=== PATIENT | female | born 1970 | race Caucasian/White ===

== ENCOUNTER 2021-03-30 15:01 | Emergency (ER) | payer MEDICARE, MEDICAID, SELFPAY ==
--- NOTE | 2021-03-30 14:59 | ECG_ITS ---
APPROVED REPORT Exam: Resting ECG HR:61 bpm ECG Measurements Heart Rate 61 AXES WY 186 P 57 QRSd 78 QRS 71 QT 430 T 80 QTc 432 Conclusion Sinus rhythm with frequent premature ventricular complexes in a pattern of bigeminy Low voltage QRS Cannot rule out Anterior infarct, age undetermined Abnormal ECG Electronically signed by : Reinier Rhodes MD 03/31/2021 21:21:21
[2021-03-30 15:02] VITALS: BP 127/67; PULSE 60; RESP 22; TEMP 36.5; O2SAT 97; BMI 39.0
--- NOTE | 2021-03-30 15:12 | CT_ITS ---
PROCEDURE INFORMATION: Exam: CT Chest With Contrast; Diagnostic Exam date and time: 03/30/2021 3:12 PM Age: 50 years old Clinical indication: Left-sided; Prior surgery; Surgery date: 1-6 months; Surgery type: Defibrillator. . . 02/20/21; Patient HX: Left chest, neck, back pain, n; /v; Additional info: Pacemaker pain TECHNIQUE: Imaging protocol: Diagnostic computed tomography of the chest with contrast. Radiation optimization: All CT scans at this facility use at least one of these dose optimization techniques: automated exposure control; mA and/or kV adjustment per patient size (includes targeted exams where dose is matched to clinical indication); or iterative reconstruction. Contrast material: ISOVUE; Contrast volume: 75 ml; Contrast route: IV; COMPARISON: No relevant prior studies available. FINDINGS: Tubes, catheters and devices: Single lead cardiac pulse generator in place. Lungs: Unremarkable. No consolidation. No masses. Pleural spaces: Unremarkable. No pneumothorax. No pleural effusion. Heart: Unremarkable. No cardiomegaly. No pericardial effusion. Aorta: Unremarkable. No aortic aneurysm. Lymph nodes: Unremarkable. No enlarged lymph nodes. Bones/joints: Unremarkable. No acute fracture. Soft tissues: Unremarkable. IMPRESSION: No acute findings.
--- NOTE | 2021-03-30 15:18 | HMH.EDCP ---
ED Disposition Clinical Impression: Chest wall pain Disposition: Home, Self-Care Condition on Discharge: Good Instructions: DI for Atypical Chest Pain Referrals: Provider,Referral, [Referring] - Tyler Goodwin MD [Staff Physician] - - Critical Care Critical Care Time: No Attestation: On 03/30/21, the high probability of a clinically significant, sudden or life threatening deterioration of the following system(s) required my full and direct attention, intervention and personal management. The time I documented below is in addition to time spent performing reported procedures but includes the following listed in this critical care notation. Medical Decision Making - Medical Records Medical records reviewed: Yes: I reviewed the patient's medical records. - Raji Inquiry Pt receiving controlled substance: Yes Raji was queried for this patient: No Risks and benefits of using a controlled substance: were discussed with pt by me Vital Signs: 03/30/21 15:02 Temperature 97.7 F Temperature Source Oral Pulse Rate [Radial] 60 Respiratory Rate 22 Blood Pressure [Right Arm] 127/67 Blood Pressure Mean [Right Arm] 87 Blood Pressure Position [Right Arm] Sitting 02 Sat by Pulse Oximetry 97 Oxygen Delivery Method Room Air - Lab Data Lab Results 03/30/21 15:30: WBC 7.9, RBC 4.58, Hgb 14.0, Hct 41.6, MCV 90.9, MCH 30.7, MCHC 33.7, RDW 13.8, Plt Count 224, MPV 8.4, Neut % (Auto) 47.1, Lymph % (Auto) 42.9, [place] % (Auto) 4.6, Eos % (Auto) 4.1, Baso % (Auto) 1.2, Neut # (Auto) 3.7, Lymph # (Auto) 3.4, [place] # (Auto) 0.4, Eos # (Auto) 0.3, Baso # (Auto) 0.1 03/30/21 15:30: Sodium 139, Potassium 4.1, Chloride 106, Carbon Dioxide 25, Anion Gap 12.1, BUN 12, Creatinine 0.70, Estimated Creat Clear 195, Estimated GFR 89, Est GFR ( Amer) 108, Glucose 96, Calcium 9.4, Total Bilirubin 0.7, AST 26, ALT 27, Alkaline Phosphatase 78, Troponin I < 0.01, NT-Pro-B Natriuret Pep 489 H, Total Protein 6.8, Albumin 4.2, Globulin 2.6, Albumin/Globulin Ratio 1.6 Result diagrams: 03/30/21 15:30 03/30/21 15:30 Orders (Tests/Meds): ED MEDICATIONS Generic Name Dose Route Start Last Admin Trade Name Freq PRN Reason Stop Dose Admin Sodium Chloride 1,000 mls @ 999 mls/hr 03/30/21 15:15 03/30/21 15:20 Sod Chlor 0.9% 1000ml Bag IV 03/30/21 16:15 999 mls/hr .Q1H1M ERVIN Administration Discontinued Medications Generic Name Dose Route Start Last Admin Trade Name Freq PRN Reason Stop Dose Admin Iopamidol 75 ml 03/30/21 16:19 03/30/21 16:20 Iopamidol-370 (76%);100ml Bottle IV 03/30/21 16:20 75 ml ONCE ONE Administration Morphine Sulfate 4 mg 03/30/21 15:11 03/30/21 15:19 Morphine 4mg/Ml Syringe IV 03/30/21 15:12 4 mg ONCE ONE Administration Promethazine HCl 25 mg 03/30/21 15:12 03/30/21 15:18 Promethazine Hcl 25mg/Ml 1ml Vial IV 03/30/21 15:13 25 mg ONCE ONE Administration Sodium Chloride 25 ml 03/30/21 15:12 03/30/21 15:18 Sodium Chloride 0.9% 25ml Bag IV 03/30/21 15:13 25 ml ONCE ONE Administration Sodium Chloride 10 ml 03/30/21 16:19 03/30/21 16:20 Sodium Chloride 0.9% 10ml Syr (Rad Only) IV 03/30/21 16:20 10 ml ONCE ONE Administration ORDERS Category Date Time Status Troponin I Q3H Lab 03/30/21 18:15 Ordered Troponin I Q3H Lab 03/30/21 21:15 Ordered - CT Data CT Scan: Chest Time Received: 18:[address] Reviewed: Yes: I have reviewed the patient's CT results, I have viewed the radiologist's interpretation Preliminary Findings: Normal/NAD - ECG Data Tracing #1 I reviewed this ECG and interpreted as documented below: Normal ventricular rate is 61 bpm. Ventricular pacemaker. Nonspecific changes. ECG initial impression date: 03/30/21 ECG initial impression time: 14:59 - Reevaluation(s) Time: 18:00 Reevaluation #1: On reevaluation, patient is feeling much better. She remains hemodynamically stable. Afebrile. Nontoxic. CT of the
[2021-03-30 15:48] LABS: Basophils # 0.1 K/mm3 (0-0.2); Basophils % 1.2 % (0.1-2.0); Chloride 106 mmol/L (98-107); Eosinophils # 0.3 K/mm3 (0.0-0.4); Eosinophils % 4.1 % (0.1-12.0); Hematocrit 41.6 % (37.0-47.0); Lymphocytes # 3.4 K/mm3 (0.7-4.5); Lymphocytes % 42.9 % (10-50); Mean Corpuscular HGB Conc 33.7 g/dL (31.8-35.4); Mean Corpuscular Hemoglobin 30.7 pg (27.0-31.2); Mean Corpuscular Volume 90.9 fl (81-99); Mean Platelet Volume 8.4 fl (7.4-10.4); Monocytes # 0.4 K/mm3 (0.1-1.0); Monocytes % 4.6 % (1.7-9.3); Neutrophils # 3.7 K/mm3 (1.8-7.8); Neutrophils % 47.1 % (37.0-80.0); Platelet Count 224 K/mm3 (142-424); Potassium 4.1 mmoL/L (3.5-5.1); Red Blood Count 4.58 M/mm3 (4.20-5.40); Red Cell Distribution Width 13.8 % (11.5-17.5); Sodium 139 mmol/L (136-145); White Blood Count 7.9 K/mm3 (4.8-10.8)
[2021-03-30 15:51] LABS: Alanine Aminotransferase 27 U/L (12-78); Albumin Level 4.2 g/dl (3.5-5.0); Albumin/Globulin Ratio 1.6 (1.1-1.8); Alkaline Phosphatase 78 U/L (38-126); Anion Gap 12.1 mEq/L (5-15); Aspartate Amino Transferase 26 U/L (14-36); Bilirubin,Total 0.7 mg/dl (0.2-1.3); Blood Urea Nitrogen 12 mg/dl (7-17); Carbon Dioxide 25 mmol/L (22.0-30.0); Creatinine Clearance Estimated 195 mL/min (50-200); Estimated Glomerular Filt Rate 89 ml/min (>60); GFR (African American) 108 ML/MIN (>60); Globulin 2.6 g/dL (1.3-3.2); Total Protein,Serum 6.8 g/dl (6.3-8.2)
[2021-03-30 15:52] LABS: Calcium 9.4 mg/dl (8.4-10.2); Glucose 96 mg/dl (74-100)
[2021-03-30 16:01] LABS: NT Pro Brain Natriuretic Pep. 489 pg/mL (0-125)
[2021-03-30 16:06] LABS: Troponin I < 0.01 ng/ml (0.00-0.034)
[2021-03-30 18:18] VITALS: BP 125/47; PULSE 78; RESP 18; TEMP 36.6; O2SAT 98
== END 2021-03-30 18:20 | disposition home or self-care (01) ==
PROVIDERS: Emergency Provider Emergency Medicine; PCP Emergency Medicine
DX: R07.9 Chest pain, unspecified (principal); Z95.810 Presence of automatic (implantable) cardiac defibrillator; I50.9 Heart failure, unspecified; J44.9 Chronic obstructive pulmonary disease, unspecified
CPT/HCPCS: 71260; 80053; 83880; 84484; 85025; 93005; 96374; 99283; Q9967

== ENCOUNTER 2021-04-04 17:56 | Emergency (ER) | payer MEDICARE, MEDICAID, SELFPAY ==
[2021-04-04 17:58] VITALS: BP 124/75; PULSE 72; RESP 18; TEMP 36.6; O2SAT 96; BMI 39.0
--- NOTE | 2021-04-04 18:12 | XR_ITS ---
PROCEDURE INFORMATION: Exam: XR Chest Exam date and time: 04/04/2021 6:12 PM Age: 50 years old Clinical indication: Cough; Prior surgery; Surgery date: 1-6 months; Surgery type: Difibrillator TECHNIQUE: Imaging protocol: XR of the chest. Views: 1 view. Portable AP upright exam 6:28 p.m. COMPARISON: CT CHEST W CON 03/30/2021 4:06 PM FINDINGS: Lungs: Slight hypoventilation. No acute findings. No consolidation. Pleural spaces: Unremarkable. No significant pleural effusion. No pneumothorax. Heart/Mediastinum: Cardiac size appears borderline enlarged, but accentuated by portable AP technique. A single lead left subclavian cardiac defibrillator device again noted. Bones/joints: Minimal spinal degenerative changes. Other findings: Overlying youth nutritional monitor electrodes. IMPRESSION: 1. No acute findings. 2. Additional nonemergency and chronic findings as above.
[2021-04-04 18:30] LABS: Basophils # 0.1 K/mm3 (0-0.2); Basophils % 1.1 % (0.1-2.0); Eosinophils # 0.4 K/mm3 (0.0-0.4); Eosinophils % 4.4 % (0.1-12.0); Hematocrit 43.1 % (37.0-47.0); Hemoglobin 14.7 g/dL (12.2-16.2); Lymphocytes # 2.7 K/mm3 (0.7-4.5); Lymphocytes % 32.6 % (10-50); Mean Corpuscular HGB Conc 34.2 g/dL (31.8-35.4); Mean Corpuscular Hemoglobin 30.9 pg (27.0-31.2); Mean Corpuscular Volume 90.4 fl (81-99); Mean Platelet Volume 8.9 fl (7.4-10.4); Monocytes # 0.3 K/mm3 (0.1-1.0); Monocytes % 3.9 % (1.7-9.3); Neutrophils # 4.7 K/mm3 (1.8-7.8); Neutrophils % 57.9 % (37.0-80.0); Platelet Count 260 K/mm3 (142-424); Red Blood Count 4.77 M/mm3 (4.20-5.40); Red Cell Distribution Width 13.8 % (11.5-17.5); White Blood Count 8.1 K/mm3 (4.8-10.8)
[2021-04-04 18:37] LABS: Anion Gap 11.8 mEq/L (5-15); Blood Urea Nitrogen 13 mg/dl (7-17); Calcium 9.5 mg/dl (8.4-10.2); Carbon Dioxide 24 mmol/L (22.0-30.0); Chloride 109 mmol/L (98-107); Creatinine Clearance Estimated 171 mL/min (50-200); Estimated Glomerular Filt Rate 76 ml/min (>60); GFR (African American) 92 ML/MIN (>60); Glucose 106 mg/dl (74-100); Potassium 3.8 mmoL/L (3.5-5.1); Sodium 141 mmol/L (136-145)
--- NOTE | 2021-04-04 18:43 | HMH.EDGENADL ---
ED Disposition Clinical Impression: Chest wall pain Disposition: Home, Self-Care Condition on Discharge: Good Instructions: DI for Chest Pain Prescriptions: diazePAM [Valium 2mg tablet] 2 mg PO BID #10 tab Transmission Status: Received by [facility] #[id number] Referrals: Khai Stoddard MD [Primary Care Provider] - Tyler Goodwin MD [Staff Physician] - - Critical Care Critical Care Time: No Attestation: On 04/04/21, the high probability of a clinically significant, sudden or life threatening deterioration of the following system(s) required my full and direct attention, intervention and personal management. The time I documented below is in addition to time spent performing reported procedures but includes the following listed in this critical care notation. Medical Decision Making - Medical Records Medical records reviewed: Yes: I reviewed the patient's medical records. - Raji Inquiry Pt receiving controlled substance: Yes Raji was queried for this patient: No Reason not queried -: Raji login issues Risks and benefits of using a controlled substance: were discussed with pt by me Vital Signs: 04/04/21 17:58 Temperature 97.9 F Temperature Source Oral Pulse Rate [Right Radial] 72 Respiratory Rate 18 Blood Pressure [Right Arm] 124/75 Blood Pressure Mean [Right Arm] 91 Blood Pressure Source [Right Arm] Automatic Cuff Blood Pressure Position [Right Arm] Sitting 02 Sat by Pulse Oximetry 96 Oxygen Delivery Method Room Air - Lab Data Lab Results 04/04/21 18:20: WBC 8.1, RBC 4.77, Hgb 14.7, Hct 43.1, MCV 90.4, MCH 30.9, MCHC 34.2, RDW 13.8, Plt Count 260, MPV 8.9, Neut % (Auto) 57.9, Lymph % (Auto) 32.6, [place] % (Auto) 3.9, Eos % (Auto) 4.4, Baso % (Auto) 1.1, Neut # (Auto) 4.7, Lymph # (Auto) 2.7, [place] # (Auto) 0.3, Eos # (Auto) 0.4, Baso # (Auto) 0.1 04/04/21 18:20: Sodium 141, Potassium 3.8, Chloride 109 H, Carbon Dioxide 24, Anion Gap 11.8, BUN 13, Creatinine 0.80, Estimated Creat Clear 171, Estimated GFR 76, Est GFR ( Amer) 92, Glucose 106 H, Calcium 9.5, Troponin I < 0.01 Result diagrams: 04/04/21 18:20 04/04/21 18:20 Orders (Tests/Meds): ED MEDICATIONS Discontinued Medications Generic Name Dose Route Start Last Admin Trade Name Augustin PRN Reason Stop Dose Admin Morphine Sulfate 4 mg 04/04/21 18:12 04/04/21 18:34 Morphine 4mg/Ml Syringe IV 04/04/21 18:13 4 mg ONCE ONE Administration Ondansetron HCl 4 mg 04/04/21 18:12 04/04/21 18:34 Ondansetron 4mg/2ml Vial IV 04/04/21 18:13 4 mg ONCE ONE Administration ORDERS Category Date Time Status Troponin I Q3H Lab 04/04/21 21:15 Ordered Troponin I Q3H Lab 04/05/21 00:15 Ordered - Radiology Data #1 Image(s): Chest Image Reviewed: Yes I reviewed the patient's radiology results, Yes I reviewed the patient's radiology image, Yes I have reviewed radiologist's interpretation IMPRESSION: 1. No acute findings. 2. Additional nonemergency and chronic findings as above. - Reevaluation(s) Time: 19:16 Reevaluation #1: On reevaluation, patient's pain is improved. Troponin negative. Chest x-ray unremarkable. Patient needs to follow-up with PCP in 48 hours. She needs to get follow-up with cardiology as she was instructed previously. Given strict return precautions. Verbalized understanding. - ARIADNA Score for Non-Stemi Age of Patient: 40-49 years old Heart Rate: 70-89 bpm Systolic Blood Pressure: 120-139 mmhg Serum Creatinine: <0.40 mg/dl CHF Killip Class: I-No CHF Other Risk Factors: None Non-Stemi Risk Score: 69 Risk Stratification: 1-108 = Low Risk Medical Decision Narrative: 50-year-old female presented to the emergency department with some chest discomfort. Patient appears to have chronic discomfort since she had a pacemaker placed. Hemodynamically she is stable. Low risk for acute coronary syndrome. Work-up initiated. General Adult HPI - General Chief comp
[2021-04-04 18:51] LABS: Troponin I < 0.01 ng/ml (0.00-0.034)
[2021-04-04 19:23] VITALS: BP 118/72; PULSE 69; RESP 16; TEMP 36.6; O2SAT 98
== END 2021-04-04 19:25 | disposition home or self-care (01) ==
PROVIDERS: Emergency Provider Emergency Medicine; PCP Emergency Medicine
DX: R07.89 Other chest pain (principal); J44.9 Chronic obstructive pulmonary disease, unspecified; I50.9 Heart failure, unspecified; F41.9 Anxiety disorder, unspecified; Z88.0 Allergy status to penicillin
CPT/HCPCS: 71045; 80048; 84484; 85025; 96374; 96375; 99283; J2405

== ENCOUNTER → 2021-04-29 14:30 | Outpatient (CLI) | payer MEDICARE, MEDICAID, SELFPAY ==
[2021-04-29 14:55] LABS: Basophils # 0.1 K/mm3 (0-0.2); Basophils % 1.3 % (0.1-2.0); Eosinophils # 0.3 K/mm3 (0.0-0.4); Eosinophils % 3.3 % (0.1-12.0); Hematocrit 46.6 % (37.0-47.0); Hemoglobin 15.5 g/dL (12.2-16.2); Lymphocytes # 3.8 K/mm3 (0.7-4.5); Lymphocytes % 41.7 % (10-50); Mean Corpuscular HGB Conc 33.4 g/dL (31.8-35.4); Mean Corpuscular Hemoglobin 30.6 pg (27.0-31.2); Mean Corpuscular Volume 91.5 fl (81-99); Mean Platelet Volume 9.4 fl (7.4-10.4); Monocytes # 0.4 K/mm3 (0.1-1.0); Monocytes % 4.8 % (1.7-9.3); Neutrophils # 4.4 K/mm3 (1.8-7.8); Platelet Count 275 K/mm3 (142-424); Red Blood Count 5.09 M/mm3 (4.20-5.40); Red Cell Distribution Width 13.6 % (11.5-17.5)
[2021-04-29 15:40] LABS: Alanine Aminotransferase 25 U/L (12-78); Albumin Level 4.6 g/dl (3.5-5.0); Alkaline Phosphatase 81 U/L (38-126); Anion Gap 12.1 mEq/L (5-15); Aspartate Amino Transferase 27 U/L (14-36); Bilirubin,Direct 0.4 mg/dl (0.0-0.4); Bilirubin,Total 0.4 mg/dl (0.2-1.3); Blood Urea Nitrogen 16 mg/dl (7-17); Calcium 10.3 mg/dl (8.4-10.2); Carbon Dioxide 29 mmol/L (22.0-30.0); Chloride 104 mmol/L (98-107); Chol/HDL Ratio 5.1 (1-3.5); Cholesterol 260 mg/dl (140-200); Estimated Glomerular Filt Rate 67 ml/min (>60); GFR (African American) 81 ML/MIN (>60); Glucose 88 mg/dl (74-100); HDL Cholesterol 51 mg/dl (40-60); Potassium 5.1 mmoL/L (3.5-5.1); Sodium 140 mmol/L (136-145); Total Protein,Serum 7.4 g/dl (6.3-8.2); Triglycerides 257 mg/dl (30-150); VLDL Cholesterol 51 mg/dL (0-40)
[2021-04-29 15:51] LABS: Direct LDL Cholesterol 184.88 mg/dL (100-129)
[2021-04-29 15:54] LABS: Free T4 (Free Thyroxine) 1.96 ng/dl (0.78-2.19)
[2021-04-29 16:08] LABS: Thyroid Stimulating Hormone 0.07 uIU/mL (0.465-4.68)
== END ==
PROVIDERS: Visit Provider Physician Assistant
DX: R00.2 Palpitations (principal); R06.00 Dyspnea, unspecified; R07.9 Chest pain, unspecified; R94.31 Abnormal electrocardiogram [ECG] [EKG]; Z95.810 Presence of automatic (implantable) cardiac defibrillator
CPT/HCPCS: 36415; 80048; 80061; 80076; 84439; 84443; 85025

== ENCOUNTER → 2021-05-06 14:23 | Outpatient (CLI) | payer MEDICARE, MEDICAID, SELFPAY ==
[2021-05-06 15:49] LABS: Anion Gap 12.7 mEq/L (5-15); Blood Urea Nitrogen 24 mg/dl (7-17); Calcium 10.5 mg/dl (8.4-10.2); Carbon Dioxide 31 mmol/L (22.0-30.0); Chloride 102 mmol/L (98-107); Estimated Glomerular Filt Rate 59 ml/min (>60); GFR (African American) 71 ML/MIN (>60); Glucose 79 mg/dl (74-100); Potassium 4.7 mmoL/L (3.5-5.1); Sodium 141 mmol/L (136-145)
== END ==
PROVIDERS: Visit Provider Nurse Practitioner Family
DX: R25.2 Cramp and spasm (principal)
CPT/HCPCS: 36415; 80048

== ENCOUNTER 2021-05-07 16:09 | Emergency (ER) | payer MEDICARE, MEDICAID, SELFPAY ==
[2021-05-07 16:10] VITALS: BP 103/61; PULSE 80; RESP 18; TEMP 36.8; O2SAT 98; BMI 39.0
--- NOTE | 2021-05-07 16:12 | XR_ITS ---
PROCEDURE: XR CHEST PORTABLE CLINICAL HISTORY: Shortness of breath COMPARISON: CR CXR CHEST(2 VIEWS-NOT PORTABLE) from 07/12/[address] CHEST W CON from 03/30/2021 CR XR CHEST PORTABLE from 04/04/2021 FINDINGS: The cardiomediastinal silhouette and pulmonary vascularity are within normal limits. A left subclavian placed RV pacemaker is present in good position. Lungs are clear. No acute bony findings. IMPRESSION: No change with no acute finding Dictated by: Donn Tobin MD 05/07/2021 16:38 Donn Tobin MD in [place] 05/07/2021 16:38
[2021-05-07 16:40] LABS: Basophils # 0.1 K/mm3 (0-0.2); Basophils % 1.3 % (0.1-2.0); Eosinophils # 0.2 K/mm3 (0.0-0.4); Eosinophils % 2.1 % (0.1-12.0); Hemoglobin 13.9 g/dL (12.2-16.2); Lymphocytes # 2.3 K/mm3 (0.7-4.5); Lymphocytes % 29.6 % (10-50); Mean Corpuscular Hemoglobin 30.2 pg (27.0-31.2); Mean Corpuscular Volume 88.8 fl (81-99); Mean Platelet Volume 8.9 fl (7.4-10.4); Monocytes # 0.3 K/mm3 (0.1-1.0); Monocytes % 3.8 % (1.7-9.3); Neutrophils % 63.2 % (37.0-80.0); Platelet Count 246 K/mm3 (142-424); Red Blood Count 4.61 M/mm3 (4.20-5.40); Red Cell Distribution Width 13.2 % (11.5-17.5); White Blood Count 7.9 K/mm3 (4.8-10.8)
[2021-05-07 16:51] LABS: Chloride 101 mmol/L (98-107)
[2021-05-07 16:52] LABS: Potassium 4.5 mmoL/L (3.5-5.1); Sodium 137 mmol/L (136-145)
[2021-05-07 16:54] LABS: Alanine Aminotransferase 74 U/L (12-78); Albumin Level 4.3 g/dl (3.5-5.0); Albumin/Globulin Ratio 1.6 (1.1-1.8); Alkaline Phosphatase 227 U/L (38-126); Anion Gap 11.5 mEq/L (5-15); Aspartate Amino Transferase 78 U/L (14-36); Bilirubin,Total 0.6 mg/dl (0.2-1.3); Blood Urea Nitrogen 34 mg/dl (7-17); Carbon Dioxide 29 mmol/L (22.0-30.0); Creatinine Clearance Estimated 105 mL/min (50-200); Estimated Glomerular Filt Rate 44 ml/min (>60); GFR (African American) 53 ML/MIN (>60); Globulin 2.7 g/dL (1.3-3.2); Phosphorous 3.9 mg/dl (2.5-4.5)
[2021-05-07 16:55] LABS: Glucose 98 mg/dl (74-100); Magnesium 1.6 mg/dl (1.6-2.3)
[2021-05-07 17:09] LABS: Troponin I < 0.01 ng/ml (0.00-0.034)
[2021-05-07 17:12] LABS: HCG,Quantitative < 2 mIU/ml (0-5.42)
--- NOTE | 2021-05-07 17:14 | HMH.EDGENADL ---
ED Disposition Clinical Impression: Viral upper respiratory tract infection, Shortness of breath Disposition: Home, Self-Care Condition on Discharge: Fair Referrals: Khai Stoddard MD [Primary Care Provider] - - Critical Care Critical Care Time: No Attestation: On 05/07/21, the high probability of a clinically significant, sudden or life threatening deterioration of the following system(s) required my full and direct attention, intervention and personal management. The time I documented below is in addition to time spent performing reported procedures but includes the following listed in this critical care notation. Medical Decision Making - Raji Inquiry Pt receiving controlled substance: No Vital Signs: 05/07/21 16:10 05/07/21 17:20 Temperature 98.2 F Temperature Source Oral Pulse Rate 71 Pulse Rate [Right Radial] 80 Respiratory Rate 18 Blood Pressure [Right Arm] 103/61 L Blood Pressure Mean [Right Arm] 75 02 Sat by Pulse Oximetry 98 Oxygen Delivery Method Room Air - Lab Data Lab results reviewed: Yes: I reviewed the patient's lab results. Lab Results 05/07/21 16:28: WBC 7.9, RBC 4.61, Hgb 13.9, Hct 41.0, MCV 88.8, MCH 30.2, MCHC 34.0, RDW 13.2, Plt Count 246, MPV 8.9, Neut % (Auto) 63.2, Lymph % (Auto) 29.6, [place] % (Auto) 3.8, Eos % (Auto) 2.1, Baso % (Auto) 1.3, Neut # (Auto) 5.0, Lymph # (Auto) 2.3, [place] # (Auto) 0.3, Eos # (Auto) 0.2, Baso # (Auto) 0.1 05/07/21 16:28: Sodium 137, Potassium 4.5, Chloride 101, Carbon Dioxide 29, Anion Gap 11.5, BUN 34 H D, Creatinine 1.30 H D, Estimated Creat Clear 105, Estimated GFR 44 L, Est GFR ( Amer) 53 L D, Glucose 98, Calcium 10.0, Phosphorus 3.9, Magnesium 1.6, Total Bilirubin 0.6, AST 78 H, ALT 74, Alkaline Phosphatase 227 H, Troponin I < 0.01, Total Protein 7.0, Albumin 4.3, Globulin 2.7, Albumin/Globulin Ratio 1.6, TSH 0.04 L, HCG, Quant < 2 05/07/21 16:28: NT-Pro-B Natriuret Pep 84.6, Lipase 62 Result diagrams: 05/07/21 16:28 05/07/21 16:28 Orders (Tests/Meds): ED MEDICATIONS Discontinued Medications Generic Name Dose Route Start Last Admin Trade Name Augustin PRN Reason Stop Dose Admin Albuterol/Ipratropium 9 ml 05/07/21 16:45 05/07/21 17:20 Ipratropium/Albuterol 3 Ml Neb IH 05/07/21 16:46 9 ml ONCE ONE Administration Furosemide 40 mg 05/07/21 17:57 05/07/21 18:22 Furosemide 40mg/4ml Vial IV 05/07/21 17:58 40 mg ONCE ONE Administration Iopamidol 75 ml 05/07/21 18:15 05/07/21 18:16 Iopamidol-370 (76%);100ml Bottle IV 05/07/21 18:16 75 ml ONCE ONE Administration Ketorolac Tromethamine 30 mg 05/07/21 18:57 Ketorolac 30mg/Ml Vial IV 05/07/21 18:58 ONCE ONE Morphine Sulfate 4 mg 05/07/21 17:34 05/07/21 17:37 Morphine 4mg/Ml Syringe IV 05/07/21 17:35 4 mg ONCE ONE Administration Prochlorperazine Edisylate 10 mg 05/07/21 18:57 Prochlorperazine 10mg/2ml Vial IV 05/07/21 18:58 ONCE ONE Sodium Chloride 10 ml 05/07/21 18:15 05/07/21 18:16 Sodium Chloride 0.9% 10ml Syr (Rad Only) IV 05/07/21 18:16 10 ml ONCE ONE Administration ORDERS Category Date Time Status Lactic Acid Stat Lab 05/07/21 18:35 Received Rapid PCR Covid and Flu A/B Stat Lab 05/07/21 19:00 Ordered Troponin I Q3H Lab 05/07/21 19:15 Ordered Troponin I Q3H Lab 05/07/21 22:15 Ordered Medical Decision Narrative: Patient is a 50-year-old female with past medical history of nonischemic cardiomyopathy with an AICD came to the ED shortness of breath. Patient is awake, alert, not in acute distress. Is hemodynamically stable, afebrile. Patient's physical exam workable for rhonchorous, Rales bilaterally. Distended, soft, diffusely tender abdomen. Differential includes but is not limited to viral upper respiratory infection, COPD exacerbation, CHF exacerbation, pneumonia, colitis, intra-abdominal abscess, fistula. Given this a CBC, CMP, lipase, lactate, troponin, EKG, BNP, chest x-
--- NOTE | 2021-05-07 17:15 | CT_ITS ---
PROCEDURE INFORMATION: Exam: CT Abdomen And Pelvis With Contrast Exam date and time: 05/07/2021 5:15 PM Age: 50 years old Clinical indication: Abdominal pain TECHNIQUE: Imaging protocol: Computed tomography of the abdomen and pelvis with contrast. Radiation optimization: All CT scans at this facility use at least one of these dose optimization techniques: automated exposure control; mA and/or kV adjustment per patient size (includes targeted exams where dose is matched to clinical indication); or iterative reconstruction. Contrast material: ISOVUE; Contrast volume: 75 ml; Contrast route: IV; COMPARISON: CT CHEST W CON 03/30/2021 4:06 PM FINDINGS: Lungs: Mild bibasilar atelectasis. Liver: Normal. No mass. Gallbladder and bile ducts: Status post cholecystectomy. Pancreas: Normal. No ductal dilation. Spleen: Normal. No splenomegaly. Adrenal glands: Normal. No mass. Kidneys and ureters: A 3 mm nonobstructing stone is seen in the right kidney lower pole. No hydronephrosis. Stomach and bowel: Unremarkable. No obstruction. No mucosal thickening. Appendix: No evidence of appendicitis. Intraperitoneal space: Unremarkable. No free air. No significant fluid collection. Vasculature: Unremarkable. No abdominal aortic aneurysm. Lymph nodes: Unremarkable. No enlarged lymph nodes. Urinary bladder: Unremarkable as visualized. Reproductive: Unremarkable as visualized. Bones/joints: Unremarkable. No acute fracture. Soft tissues: Unremarkable. IMPRESSION: 1. No acute intra-abdominal pathology. 2. A 3 mm right lower pole renal stone is nonobstructing.
[2021-05-07 17:20] VITALS: PULSE 71; PULSE 86
[2021-05-07 17:27] LABS: Thyroid Stimulating Hormone 0.04 uIU/mL (0.465-4.68)
--- NOTE | 2021-05-07 18:03 | HMH.ITSTN ---
Addendum entered by Taras Hendrix 05/07/21 18:05: tech called back saying patient could not receive fluid due to being fluid overload Original Note: requested fluids prior to ct scan due to lower GFR
--- NOTE | 2021-05-07 18:08 | PC.NURSE ---
Pt to RAD
[2021-05-07 18:17] LABS: Lipase 62 U/L (23-300)
[2021-05-07 18:27] LABS: NT Pro Brain Natriuretic Pep. 84.6 pg/mL (0-125)
[2021-05-07 19:04] LABS: Lactic Acid 0.9 mmol/L (0.7-2.1)
[2021-05-07 19:43] VITALS: BP 113/61; PULSE 83; RESP 20; TEMP 36.8; O2SAT 97
== END 2021-05-07 19:52 | disposition home or self-care (01) ==
PROVIDERS: Emergency Provider Emergency Medicine; PCP Emergency Medicine
DX: J06.9 Acute upper respiratory infection, unspecified (principal); F41.9 Anxiety disorder, unspecified; J44.9 Chronic obstructive pulmonary disease, unspecified; Z95.0 Presence of cardiac pacemaker; Z88.0 Allergy status to penicillin; Z79.899 Other long term (current) drug therapy
CPT/HCPCS: 71045; 74177; 80053; 83605; 83690; 83735; 83880; 84100; 84443; 84484; 84702; 85025; 96374; 96375; 99282; Q9967

== ENCOUNTER → 2021-06-06 14:17 | Outpatient (CLI) | payer MEDICARE, MEDICAID, SELFPAY ==
--- NOTE | 2021-06-06 14:25 | XR_ITS ---
PROCEDURE: XR CHEST 2V CLINICAL HISTORY: cardiomyopathy COMPARISON: CR CXR CHEST(2 VIEWS-NOT PORTABLE) from 07/12/[address] CHEST W CON from 03/30/2021 CR XR CHEST PORTABLE from 04/04/2021 CR XR CHEST PORTABLE from 05/07/2021 FINDINGS: RV pacemaker is present from left subclavian approach. Normal heart size. Lungs are clear of acute infiltrate. No acute bony findings. IMPRESSION: No acute findings. Dictated by: Donn Tobin MD 06/06/2021 15:09 Donn Tobin MD in [place] 06/06/2021 15:09
[2021-06-06 15:04] LABS: Hemoglobin A1C 5.4 % (4.0-6.0)
[2021-06-06 15:20] LABS: Alanine Aminotransferase 22 U/L (12-78); Albumin Level 4.2 g/dl (3.5-5.0); Albumin/Globulin Ratio 1.6 (1.1-1.8); Alkaline Phosphatase 100 U/L (38-126); Anion Gap 13.5 mEq/L (5-15); Aspartate Amino Transferase 23 U/L (14-36); Bilirubin,Total 0.6 mg/dl (0.2-1.3); Blood Urea Nitrogen 38 mg/dl (7-17); Calcium 9.9 mg/dl (8.4-10.2); Carbon Dioxide 29 mmol/L (22.0-30.0); Chloride 100 mmol/L (98-107); Estimated Glomerular Filt Rate 44 ml/min (>60); GFR (African American) 53 ML/MIN (>60); Globulin 2.6 g/dL (1.3-3.2); Glucose 115 mg/dl (74-100); Potassium 5.5 mmoL/L (3.5-5.1); Sodium 137 mmol/L (136-145); Total Protein,Serum 6.8 g/dl (6.3-8.2)
[2021-06-06 15:49] LABS: Thyroid Stimulating Hormone < 0.02 uIU/mL (0.465-4.68)
== END ==
PROVIDERS: Visit Provider Family Medicine
DX: Z95.810 Presence of automatic (implantable) cardiac defibrillator (principal); R53.83 Other fatigue; Z83.3 Family history of diabetes mellitus; R07.89 Other chest pain; Z79.899 Other long term (current) drug therapy
CPT/HCPCS: 36415; 71046; 80053; 83036; 84443

== ENCOUNTER → 2021-08-29 08:41 | Outpatient (CLI) | payer MEDICARE, OTHER, SELFPAY ==
--- NOTE | 2021-08-29 08:50 | XR_ITS ---
FINAL REPORT CLINICAL HISTORY: knee pain FINDINGS: RIGHT KNEE: 4 weight-bearing views of the right knee obtained. There is no acute fracture or dislocation. There are moderate degenerative changes with joint space narrowing and osteophytes. There is no joint effusion. IMPRESSION: Moderate degenerative changes with joint space narrowing and osteophytes. Reviewed, Interpreted and Dictated by Nicolas Malhotra III, MD Transcribed by Dedra Green Authenticated by Nicolas Malhotra III, MD on 08/29/2021 11:05:57 AM [facility]
--- NOTE | 2021-08-29 08:51 | XR_ITS ---
FINAL REPORT CLINICAL HISTORY: Knee pain FINDINGS: LEFT KNEE: 4 weight-bearing views of the left knee obtained. There is no acute fracture or dislocation. There are moderate degenerative changes with joint space narrowing. There is a chronic irregularity of the lateral border of the distal femur of uncertain etiology that could represent old fibrous cortical defect. IMPRESSION: Moderate degenerative change with chronic irregularity of the distal femur. Reviewed, Interpreted and Dictated by Nicolas Malhotra III, MD Transcribed by Dedra Green Authenticated by Nicolas Malhotra III, MD on 08/29/2021 11:01:[address] [facility]
== END ==
PROVIDERS: PCP Emergency Medicine; Visit Provider Orthopaedic Surgery
DX: M25.561 Pain in right knee (principal); M25.562 Pain in left knee
CPT/HCPCS: 73564

== ENCOUNTER 2021-08-29 10:40 | Outpatient (RCR) | payer MEDICARE, OTHER, SELFPAY | END 2021-08-29 11:30 | disposition home or self-care (01) | LOC: PT 10:40 | PROVIDERS: Visit Provider Orthopaedic Surgery | DX: M25.562 Pain in left knee (principal); M25.561 Pain in right knee | CPT/HCPCS: 97760 ==

== ENCOUNTER → 2021-09-09 16:00 | Outpatient (CLI) | payer MEDICARE, OTHER, SELFPAY ==
[2021-09-09 18:48] LABS: Amphetamine/Metha Screen,Urine Negative ng/ml (<1000)
[2021-09-09 18:49] LABS: Barbiturates Screen,Urine Negative ng/ml (<200)
[2021-09-09 18:50] LABS: Benzodiazepines Screen,Urine Negative ng/ml (<200)
[2021-09-09 18:51] LABS: Cannabinoid Screen,Urine Positive ng/ml (<50); Cocaine Screen,Urine Negative ng/ml (<300)
[2021-09-09 18:52] LABS: Methadone Screen,Urine Negative ng/ml (<300); Opiate Screen,Urine Positive ng/ml (<300)
[2021-09-09 18:53] LABS: Phencyclidine Screen,Urine Negative ng/ml (<25)
== END ==
PROVIDERS: Visit Provider Emergency Medicine
DX: Z79.899 Other long term (current) drug therapy (principal)
CPT/HCPCS: 80305

== ENCOUNTER → 2021-12-04 14:17 | Outpatient (CLI) | payer MEDICARE, OTHER, SELFPAY ==
--- NOTE | 2021-12-04 14:18 | CA_ITS ---
APPROVED REPORT EXAM: Comprehensive 2D, Doppler, and color-flow Echocardiogram Cemetery Warden: Ghada Ospina RT(R) Ht: 5 ft 11 in Wt: 282lbs BSA: 2.44 BP: 118/70 mmHg Indications: CM, COPD, palpitations, HTN, obesity, hyperlipidemia, preop, CHF, pacemaker. 2D Dimensions LA Volume 27.70 mL LA Volume Index 11.35 mL/m2 (M/F) 16-34 M-Mode Dimensions RVDd 2.37 cm (0.9-2.6) LA Diam 3.55 cm (1.9-4.0) LVDd 5.51 cm (3.5-5.7) Ao Diam 2.62 cm (2.0-3.7) LVDs 4.87 cm (3.5-5.7) IVSd 0.93 cm (0.6-1.1) PWd 0.72 cm (0.6-1.1) EF (Teich) 24.90% FS 11.60% EDV (Teich) 148.00 mL ESV (Teich) 111.20 mL LV Diastology E Decel Time 227.00 (160-240 msec) E/A Ratio 1.0 MED E' 6.20 (< 7 cm/sec) E'/MED E' Ratio 8.35 (>14) LAT E' 10.40 (<10 cm/sec) E/LAT E' Ratio 4.98 (>14) Mitral Valve MV E Max Sky. 52.00 (40-130 cm/s) MV A Velocity 54.00 (40-130 cm/s) E/A Ratio 0.97 MV Decel. Time 227.00 (160-240 ms) MV PHT 66.00 ms Left Ventricle Left atrium is mildly enlarged, left ventricle is normal size, mild concentric left ventricular hypertrophy, estimated ejection fraction 45%, there is abnormal septal motion. Diastolic parameters are inconclusive. Right Ventricle Right atrium and right ventricle are normal size and contractility, pacemaker leads in the right ventricle. Aortic Valve Aortic valve is minimally thickened and fibrosed there is no aortic stenosis or aortic insufficiency. Mitral Valve Mitral valve is grossly normal, there is trace mitral regurgitation. Tricuspid Valve Tricuspid valve grossly normal, there is trace tricuspid regurgitation, tricuspid regurgitation jet velocity is inadequate for calculation of the right ventricular systolic pressure. Pulmonic Valve Pulmonic valve is poorly visualized. Great Vessels Aortic root is normal size. Inferior vena cava is poorly visualized. Pericardium No significant pericardial effusion noted. Conclusion 1. Mildly dilated, normal left ventricular size, mild concentric left ventricular hypertrophy, estimated ejection fraction 45% with no regional wall motion abnormality, diastolic parameters are inconclusive. There is abnormal septal motion. 2. Trace mitral and tricuspid regurgitation. 3. No significant pericardial effusion. 4. Inferior vena cava is poorly visualized. Electronically signed by : Rohith Rg MD 12/05/2021 15:21:41
== END ==
PROVIDERS: PCP Emergency Medicine; Visit Provider Physician Assistant
DX: Z01.810 Encounter for preprocedural cardiovascular examination (principal)
CPT/HCPCS: 93306

== ENCOUNTER → 2021-12-15 07:05 | Outpatient (CLI) | payer MEDICARE, OTHER, SELFPAY ==
--- NOTE | 2021-12-15 | CA_ITS ---
APPROVED REPORT Exam: Pharmacologic Technologist: Constanza Dumont, Ht: 5 ft 11 in Wt: 285 lbs BSA: 2.45 m2 HR: 45 bpm BP: 108/69 mmHg Rhythm: SINUS TAMI Medical History Medications: Metoprolol,,,,, Gabapentin,,,,, XaRELTO,,,,, Albuterol,,,,, SpirOLACTONE,,,,, Famotidine,,,,, FluTICASONE,,,,, OxYbutynin,,,,, Nitroglycerin,,,,, AtorvaASTATIN,,,,, EnTRESTO,,,,, ClonAZapam,,,,, Allergies: CLINDAMYCIN, DOXYCYCLINE, PENICILLIN Stress Test Details Test: LEXISCAN HR Resting HR: 53 bpm Max Heart Rate (APMHR): 170.630444 bpm Max HR Achieved: 75 bpm Target HR (85% APMHR): 144.859421 bpm % of APMHR: 44.12 Recovery HR: 62 bpm BP Resting BP: 108/69 mmHg Max BP: 109/62 mmHg Recovery BP: 107.0/59.0 mmHg ECG Resting ECG: SINUS TAMI Clinical Exercise duration: 04:29 min Highest Stage Achieved: Exercise capacity: 1.0 METs Stress ECG Conclusion PT HAD SOA. <1.5 MM Test Summary REST . . . . . . . Sitting REST 13:09 . . 53 . 108/ 69 . . Stage 1 01:00 . . 65 . . . . Stage 2 01:00 . . 72 . . . . Stage 3 01:00 . . 66 . 106/ 64 . . Stage 4 01:00 . . 63 . . . . Stage 4 01:29 . . 66 . 97/ 54 . Stop exercise at 04:29 RECOVERY 01:00 . . 63 . . . . RECOVERY 02:00 . . 61 . 109/ 62 . . RECOVERY 03:00 . . 61 . 107/ 59 . . RECOVERY 03:35 . . 60 . 107/ 59 . . Electronically signed by : Rohith Rg MD 12/15/2021 17:14:53
--- NOTE | 2021-12-15 07:27 | NM_ITS ---
APPROVED REPORT Exam: Nuclear Stress Test Indication: CHF, Tobacco use, Family history Patient Location: Outpatient Stress Tech: Constanza Dumont MARGARET Tech:Michelle Tapia, ARRT, RT (R)(N) Ht: 5 ft 11 in Wt: 282 lbs Bra Size: 42D HR: 53 bpm BP: 108/69 mmHg BSA: 2.44 m2 TID: 1.05 BMI: 39.3 History: CHF, Tobacco use, Family history Procedure: Patient received a 0.4 mg of intravenous Lexiscan, resting heart rate 53 bpm, resting blood pressure 108/69 mmHg, with Lexiscan maximum heart rate achived was 75 bpm which is Less than 85 % of the maximum predicted heart rate and blood pressure was 109/62 mmHg. With Lexiscan, patient denied any complaint of chest pain. Electrocardiogram Resting electrocardiogram showed sinus rhythm, with Lexiscan less than 1.[address] segment depression noted from the baseline EKG. The EKG portion of the Lexiscan is nondiagnostic. Cardiac Stress and Resting SPECT Images: Cardiac Stress and Resting SPECT images were obtained using technetium 99m Myoview 29.4 mCi stress and 10.66 mCi at rest. Gated SPECT analysis of segmental wall motion and calculation of the ejection fraction also done. Cardiac stress and rest SPECT images show uniform myocardial activity without segmental perfusion abnormality, computer derived ejection fraction is 49% with no regional wall motion abnormality, right ventricle is normal size and contractility. Conclusion: 1. The EKG portion of the Lexiscan is nondiagnostic. 2. No scintigraphic evidence of reversible ischemia seen, compared to ejection fraction 49% with no regional wall motion abnormality, right ventricle is normal size and contractility. 3. Normal Lexiscan Myoview study. Electronically signed by : Rohith Rg MD 12/15/2021 17:17:30
--- NOTE | 2021-12-15 09:27 | HMH.ITSHM ---
Current Home Medications as stated by this patient Edilia Vincent or screening representative. []ATORVASTATIN ALBUTEROL TORSEMIDE SPIRONOLACTONE SACUBITRIL RIVAROXABAN OXYCODONE LEVOCETIRIZINE OXYBUTYNIN ONDANSETRON NITRO METOPROLOL MESALAMINE LEVOTHYROXINE GABAPENTIN FLUTICASONE FAMOTIDINE CLONAZEPAM BUDESONIDE
== END ==
PROVIDERS: PCP Emergency Medicine; Visit Provider Nurse Practitioner Family
DX: I47.2 Ventricular tachycardia (principal); Z01.810 Encounter for preprocedural cardiovascular examination
CPT/HCPCS: 78452; 93017; A9502; J2785

== ENCOUNTER → 2021-12-23 12:50 | Outpatient (CLI) | payer MEDICARE, OTHER, SELFPAY ==
--- NOTE | 2021-12-23 12:55 | XR_ITS ---
FINAL REPORT CLINICAL HISTORY: pre op..CHF COMPARISON: June 06, 2021 FINDINGS: Two views of the chest were obtained. A left subclavian ICD is present. The heart size and pulmonary vascularity are within normal limits. The mediastinum is normal. No acute pulmonary abnormality is identified. There is no pneumothorax. The bony thorax is intact. IMPRESSION: No acute process. Reviewed, Interpreted and Dictated by Nicolas Malhotra III, MD Transcribed by Gail Mckeon Authenticated and [facility] [place]
--- NOTE | 2021-12-23 13:23 | ECG_ITS ---
APPROVED REPORT Exam: Resting ECG HR:65 bpm ECG Measurements Heart Rate 65 AXES FL 189 P 45 QRSd 91 QRS 20 QT 398 T 30 QTc 410 Conclusion SINUS RHYTHM LOW QRS VOLTAGE IN PRECORDIAL LEADS [QRS DEFLECTION < 1.0 mV IN CHEST LEADS] Late R wave progression ABNORMAL ECG UNCONFIRMED REPORT Electronically signed by : Reinier Rhodes MD 12/25/2021 17:46:49
[2021-12-23 13:43] LABS: Basophils # 0.1 K/mm3 (0-0.2); Basophils % 0.6 % (0.1-2.0); Eosinophils # 0.3 K/mm3 (0.0-0.4); Eosinophils % 2.8 % (0.1-12.0); Hematocrit 43.2 % (37.0-47.0); Hemoglobin 15.4 g/dL (12.2-16.2); Lymphocytes # 3.8 K/mm3 (0.7-4.5); Lymphocytes % 33.1 % (10-50); Mean Corpuscular HGB Conc 35.7 g/dL (31.8-35.4); Mean Corpuscular Hemoglobin 31.2 pg (27.0-31.2); Mean Corpuscular Volume 87.2 fl (81-99); Mean Platelet Volume 8.4 fl (7.4-10.4); Monocytes # 0.5 K/mm3 (0.1-1.0); Monocytes % 4.1 % (1.7-9.3); Neutrophils # 6.8 K/mm3 (1.8-7.8); Neutrophils % 59.4 % (37.0-80.0); Platelet Count 292 K/mm3 (142-424); Red Blood Count 4.95 M/mm3 (4.20-5.40); Red Cell Distribution Width 13.5 % (11.5-17.5); White Blood Count 11.5 K/mm3 (4.8-10.8)
[2021-12-23 14:25] LABS: Alanine Aminotransferase 32 U/L (12-78); Albumin Level 4.4 g/dl (3.5-5.0); Albumin/Globulin Ratio 1.6 (1.1-1.8); Alkaline Phosphatase 130 U/L (38-126); Anion Gap 14.7 mEq/L (5-15); Aspartate Amino Transferase 31 U/L (14-36); Bilirubin,Total 0.3 mg/dl (0.2-1.3); Blood Urea Nitrogen 28 mg/dl (7-17); Calcium 9.6 mg/dl (8.4-10.2); Carbon Dioxide 26 mmol/L (22.0-30.0); Chloride 104 mmol/L (98-107); Estimated Glomerular Filt Rate 48 ml/min (>60); GFR (African American) 58 ML/MIN (>60); Globulin 2.8 g/dL (1.3-3.2); Glucose 98 mg/dl (74-100); Potassium 4.7 mmoL/L (3.5-5.1); Sodium 140 mmol/L (136-145); Total Protein,Serum 7.2 g/dl (6.3-8.2)
== END ==
PROVIDERS: PCP Emergency Medicine; Visit Provider Orthopaedic Surgery
DX: M19.90 Unspecified osteoarthritis, unspecified site (principal); Z79.01 Long term (current) use of anticoagulants
CPT/HCPCS: 36415; 71046; 80053; 85025; 93005

== ENCOUNTER → 2021-12-27 08:48 | Outpatient (CLI) | payer MEDICARE, OTHER, SELFPAY ==
[2021-12-26 17:07] LABS: Amphetamine/Metha Screen,Urine Negative ng/ml (<1000); Benzodiazepines Screen,Urine Negative ng/ml (<200)
[2021-12-26 17:08] LABS: Barbiturates Screen,Urine Negative ng/ml (<200)
[2021-12-26 17:09] LABS: Cannabinoid Screen,Urine Positive ng/ml (<50); Cocaine Screen,Urine Negative ng/ml (<300)
[2021-12-26 17:10] LABS: Methadone Screen,Urine Negative ng/ml (<300); Opiate Screen,Urine Negative ng/ml (<300)
[2021-12-26 17:11] LABS: Phencyclidine Screen,Urine Negative ng/ml (<25)
== END ==
PROVIDERS: PCP Emergency Medicine; Visit Provider Emergency Medicine
DX: G89.29 Other chronic pain (principal)
CPT/HCPCS: 80305

== ENCOUNTER → 2021-12-28 13:46 | Outpatient (CLI) | payer MEDICARE, OTHER, SELFPAY | PROVIDERS: PCP Emergency Medicine; Visit Provider Orthopaedic Surgery | DX: Z01.812 Encounter for preprocedural laboratory examination (principal); Z20.822 Contact with and (suspected) exposure to COVID-19; M25.562 Pain in left knee | CPT/HCPCS: C9803; U0003; U0005 ==

== ENCOUNTER 2021-12-30 06:12 | Observation (INO) | payer MEDICARE, OTHER, SELFPAY ==
[2021-12-29 11:26] VITALS: BMI 39.0
--- NOTE | 2021-12-29 11:27 | SW/DCPLANNER ---
Addendum entered by Kathryn Gold 12/29/21 11:41: Patient has returned my phone call and stated that the plan is to return home with her roommate that she has lived with for years. Patient stated that she does not have a walker at home and will need one prior to discharge. I explained to patient that PT/OT will evaluate patient after surgery then I will follow up regarding home health PT vs outpatient PT. Original Note: I attempted to contact this patient regarding discharge plans after total knee surgery tomorrow 12/30/21. Patient did not answer at this time/VM left. I will follow up with this patient once phone call is returned OR once patient is admitted to [facility] after surgery.
[2021-12-30] VITALS (23 sets, daily range): BP systolic 93–130; BP diastolic 41–99; PULSE 56–77; RESP 14–22; TEMP 36.2–38; O2SAT 94–100
[2021-12-30 07:21] LABS: Coronavirus 19, PCR Not Detected (NotDetected); Influenza A, PCR Not Detected (NotDetected); Influenza B, PCR Not Detected (NotDetected)
--- NOTE | 2021-12-30 07:39 | P.PN_ITS ---
[facility] Anesthesia Checklist - Patient Identification Patient Identification: Arm Band, Verbal (Name & ) - Structural Data Admitted From: Home Planned Operative Procedure/s: Left TKA Consent for Planned Operative Procedure(s) Verified: Yes Verified Documents: Surgical Consent - NPO Status Verified Time NPO: 00:00 - Chart Verification Results Verified: CBC, BMP - Additional verifications Anesthesia Reactions: No Hx Blood Transfusions: No Blood Transfusion Reaction: No - Airway Assessment C-Spine Mobility Assessed: Yes TMJ Mobility Assessed: Yes Dentition: Partials - Neurological Assessment Level of Consciousness: Awake, Alert, Appropriate - Anesthesia Plan ASA Class: III Anesthesia Type: MAC w/Spinal [facility] History I have reviewed the patient's past medical history: Yes Medical History: Reports:: Aneurysm, Anxiety, Cancer (cervical,), Congestive Heart Failure, Chronic Obstructive Pulmonary Disease (COPD), Internal Pacemaker, Palpitations, Pulmonary Embolism Denies:: Diabetes Mellitus Type 1, Diabetes Mellitus Type 2, MRSA, Seizures *Have you ever received a pneumonia vaccine?: No *Have you received a flu vaccine this season?: No Other Medical History: Reports: Thyroid Disease. Denies: Blood Transfusion Reaction Anesthesia experience/problems:: NONE Other Surgeries: Yes: Cardiac Catheterization, Pacemaker Amputation: No Fractures: Yes - *Social History Smoking Status: Former smoker # Packs/Day (cigarettes): 1 Alcohol Intake: never Substance Use Type: marijuana, prescription drug *Occupational Status:: disabled Housing: house Household Members: significant other *Travel in the last 8 weeks: None - Psychiatric History Pschychiatric History:: Reports:: Anxiety Family Hx:: No significant family history
--- NOTE | 2021-12-30 09:58 | HMH.PHAINT ---
home medication list verified using list from Clinic pharmacy
--- NOTE | 2021-12-30 10:53 | P.PN_ITS ---
[facility] Anesthesia Record Part I Intake, IV Amount: 600 Estimated blood loss (mL): 25 Urine output (mL): 0 Blood Pressure: 118/68 SaO2: 95 Pulse Rate: 75 Respiratory Rate: 17 Temperature: 97.1 F Patient is:: Drowsy Stable to PACU at:: 10:49
--- NOTE | 2021-12-30 11:07 | HMH.OPNOTE ---
Date of procedure: 12/30/21 Pre-op Diagnosis:: Left knee osteoarthritis Post-op Diagnosis:: Left knee osteoarthritis Procedure performed:: Left total knee arthroplasty Surgeon:: Tim Ellsworth MD Manager Rail(s):: NIGEL Rea Anesthesia: spinal Estimated blood loss (mL): 25 Clinical Note:: Edilia is a very pleasant 51-year-old female with activity limiting left knee pain secondary to osteoarthritis that is affecting her quality of life. She has a history of knee arthroscopy in both knees in her 30s. She has had no relief with conservative treatment measures for her left knee pain. Left knee x-rays in August revealed severe tricompartmental degenerative changes with loss of medial and lateral joint space and marginal osteophyte formation. She normally takes Xarelto for history of PE and cardiomyopathy with a defibrillator. This was stopped 2 weeks ago. She was given cardiac clearance for elective knee replacement by Dr. Goodwin. She normally takes oxycodone for chronic pain. After discussing all the risks, benefits and alternativesto to left total knee arthroplasty she agreed to proceed. Operative findings:: Left knee severe tricompartmental degenerative changes Operative note:: The patient was seen in the preoperative holding area. The left knee was marked to confirm the correct operative site. She received vancomycin for prophylactic antibiotics within 1 hour of incision time. She was brought back to the OR and spinal was performed without difficulty and she was given sedation throughout the case. A bump was placed underneath the left hip. Nonsterile tourniquet applied to the left thigh. The left lower extremity was prepped and draped in the usual sterile fashion. Timeout was performed to confirm left total knee arthroplasty on patient Edilia Vincent. The left lower extremity was exsanguinated with an Esmarch. Tourniquet was inflated to 300 mmHg. With the knee flexed a midline incision was made with a 10 blade scalpel. Adequate hemostasis maintained with Bovie electrocautery. Full-thickness medial and lateral flaps were elevated. I then made a medial parapatellar arthrotomy. The patella was everted. Patella fat pad and anterior femoral fat pads were excised. Medial release was performed using Bovie electrocautery. Z retractors were placed medially and laterally. The distal femur was then drilled and intramedullary distal femoral cutting guide was pinned in place set at 5 degrees valgus cut for a 9-1/2 mm cut. This cut was made with an oscillating saw. The femur was then sized to a size 6 set at 3 degrees of external rotation. The 4-in-1 cutting guide was pinned in place. Anterior and posterior cuts were then made as were the chamfer cuts. We then turned our attention to the tibia. The tibia was subluxed anteriorly. PCL retractor was placed as were medial and lateral Hohmann retractors. We then used the extra medullary tibial cutting guide set at 3 degrees posterior slope for the proximal tibial cut. 7 to 9 mm of bone was removed from the medial and lateral sides. The menisci were then excised as were posterior osteophytes. With a 9 mm block we were able to achieve full extension flexion with excellent alignment. The tibia was sized to a size 5 tibial tray centered off the medial third of the tibial tubercle. The tray was pinned in place. We then punched the tibia. The size 6 femur was then placed on the femur. We then used the reamer to drill the box and then punch was used for the box as well. We then placed a trial 9 mm poly. With the trial components in place we achieved full extension of flexion I am. We then turned our attention to the patella. Patella was sized to 22 mm in thickness. We made a 9 mm patellar cut with the reciprocal saw. A 32 trial button was placed after patella drill holes were made. With the trial button in place there was excellent tracking. The trial components were t
--- NOTE | 2021-12-30 11:26 | XR_ITS ---
FINAL REPORT CLINICAL HISTORY: postop xrays left knee patient in pacu COMPARISON: August 29, 2021 FINDINGS: 2 views of the left knee were obtained. There is no acute fracture or dislocation. There has been interval total knee arthroplasty. There is gas in the soft tissues. IMPRESSION: Total knee arthroplasty in good alignment. Reviewed, Interpreted and Dictated by Blaze Johnson MD Transcribed by Dhaval Ford Authenticated and [facility]
--- NOTE | 2021-12-30 11:50 | P.CONPHA_ITS ---
[facility] Pharmacy VTE Monitoring - Patient Demographics Admission date: 12/30/21 Report Date: 12/30/21 Time: 11:50 Allergies/Adverse Reactions: Patient Allergies Penicillins Allergy (Severe, Verified 12/30/21 09:54) Swelling of Lip/Tongue/Throat clindamycin Allergy (Intermediate, Verified 12/26/21 13:53) Rash doxycycline Allergy (Intermediate, Verified 12/30/21 09:54) Unknown allergy reaction ciprofloxacin Allergy (Verified 12/30/21 09:54) Nausea Height: 1.8 m Weight: 127.006 kg - VTE Risk Clinical Trial Participant: No - Prophylaxis VTE Prophylaxis Ordered?: Yes Types of VTE Prophylaxis: Pharmacological (XARELTO) Pharmacologic Type: Other
--- NOTE | 2021-12-30 13:15 | HMH.HP ---
*Admission Date: 12/30/21 *Chief complaint: L Knee Pain *History of present illness: 51-year-old female with ongoing left knee pain secondary to arthritis with a history of arthroscopy in bilateral knees 20 years previous. 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 Xarelto stopped 2 weeks ago. She was admitted after left total knee arthroplasty was completed by Ortho [facility] History I have reviewed the patient's past medical history: Yes Medical History: Reports:: Aneurysm, Anxiety, Cancer (cervical,), Congestive Heart Failure, Chronic Obstructive Pulmonary Disease (COPD), Internal Pacemaker, Palpitations, Pulmonary Embolism Denies:: Diabetes Mellitus Type 1, Diabetes Mellitus Type 2, MRSA, Seizures *Have you ever received a pneumonia vaccine?: No *Have you received a flu vaccine this season?: No Other Medical History: Reports: Thyroid Disease. Denies: Blood Transfusion Reaction Anesthesia experience/problems:: NONE Other Surgeries: Yes: Cardiac Catheterization, Pacemaker Amputation: No Fractures: Yes - *Social History Smoking Status: Former smoker # Packs/Day (cigarettes): 1 Alcohol Intake: never Substance Use Type: marijuana, prescription drug *Occupational Status:: disabled Housing: house Household Members: significant other *Travel in the last 8 weeks: None - Psychiatric History Pschychiatric History:: Reports:: Anxiety Family Hx:: No significant family history Review of Systems - Review of Systems Review of systems:: unable to obtain Patient seen postoperatively still groggy from anesthesia Meds Home Medications Medication Instructions Recorded Confirmed Type cyclosporine 0.05 % eye drops in a 1 drp OPHTHALMIC Q12H 10/29/20 12/30/21 History dropperette ondansetron HCl 4 mg tablet 4 mg PO TID PRN #30 tab 10/31/21 12/30/21 Rx Albuterol Sulfate [Albuterol 2 puff IH Q4-6H PRN 12/29/21 12/30/21 History Sulfate Hfa] Atorvastatin Calcium [Lipitor 40mg 40 mg PO HS 12/29/21 12/30/21 History Tab] Famotidine [Acid Emergency Medical Technician] 20 mg PO BID 12/29/21 12/30/21 History Fluticasone Propionate 1 spray NS BID 12/29/21 12/30/21 History Gabapentin 600 mg PO TID 12/29/21 12/30/21 History Levocetirizine Dihydrochloride 5 mg PO DAILY 12/29/21 12/30/21 History Levothyroxine Sodium 200 mcg PO DAILYDM 12/29/21 12/30/21 History [Levothyroxine 200mcg (0.2mg) Tab] Mesalamine 1,600 mg PO TID 12/29/21 12/30/21 History Metoprolol Succinate [Metoprolol 150 mg PO DAILY 12/29/21 12/30/21 History Succinate 100mg Tablet*] Nitroglycerin See Rx Instructions .ROUTE .COMPLEX 12/29/21 12/30/21 History Oxybutynin Chloride 5 mg PO BID 12/29/21 12/30/21 History Rivaroxaban [Xarelto] 20 mg PO QPMWITHMEAL 12/29/21 12/30/21 History Sacubitril/Valsartan [Entresto] 1 tab PO BID 12/29/21 12/30/21 History Spironolactone [Spironolactone 25 mg PO DAILY 12/29/21 12/30/21 History 25mg Tablet] Torsemide [Demadex] 20 mg PO DAILY 12/29/21 12/30/21 History clonazePAM [Klonopin 1mg tablet] 1 mg PO TID 12/29/21 12/30/21 History Oxycodone HCl [Oxycodone 5mg tab 5 mg PO Q4-6H PRN #40 tab 12/30/21 Rx (IR)] Oxycodone HCl/Acetaminophen 1 tab PO QIDP PRN 12/30/21 12/30/21 History [Oxycodone-Acetaminophn 7.5-325] Allergies Allergy/AdvReac Type Severity Reaction Status Date / Time Penicillins Allergy Severe Swelling Verified 12/30/21 09:54 of Lip/Tongue/Throat clindamycin Allergy Intermediate Rash Verified 12/26/21 13:53 doxycycline Allergy Intermediate Unknown Verified 12/30/21 09:54 allergy reaction ciprofloxacin Allergy Nausea Verified 12/30/21 09:54 Exam Vital signs and Labs for Last 24 Hours: Temp Pulse Resp BP Pulse Ox 97.3 F L 65 16 127/99 H 98 12/30/21 13:00 12/30/21 13:00 12/30/21 13:00 12/30/21 13:00 12/30/21 13:00 Laboratory Results - last 24 hr 12/30/21 07:05: SARS-CoV-2 (PCR) Not detected, Influenza A Untype (PCR) Not detected, Inf
--- NOTE | 2021-12-30 14:44 | HMH.PTEV ---
Physical Therapy Evaluation Rehab PT IP Evaluation Start: 12/30/21 11:21 Freq: .once Status: Active Protocol: Document 12/30/21 14:37 BRODIE (Rec: 12/30/21 14:44 BRODIE [id number]) Subjective/History History History This is the initial IP PT evaluation for Edilia Vincent . Pt is a51 y/o female referred to PT s/p admission for L TKA. Subjective Subjective Pt has c/o severe pain in LLE - pt able at time of eval to move RLE fully, LLE at hip and ankle painw/ knee mvmnt Rehab PT IP Eval Objective Appearance Patient Behavior Cooperative,Anxious Patient Orientation Person,Place,Name,Birthday, Year Difficulty following instructions none Speech Pattern Clear,Appropriate Ambulation Patient Able to Ambulate No Balance Ability to Arise Able, uses arms to help Sitting Balance Steady, safe Dynamic Sitting Balance Ability Fair Transfers Bed Transfer Ability Contact Guard/Hand Hold Sit to Stand Bed Transfer Ability Supervision/Stand by ROM LLE PT ROM Status ABN Abnormal ROM Comment Limitation by pain MMT LLE PT MMT ABN Abnormal MMT Grade limited by pain Rehab PT IP prob,goals,plan Problems Date of Evaluation: 12/30/21 PT IP Problems Bed Mobility,Transfers,Gait, Balance,Self care,Safety Rehab Potential Rehab Potential Fair Equipment Needs Assistive Devices Rolling / Wheeled Walker Plan PT Intervention Plan Bed Mobility,Transfers,Gait, Balance,Self care,Safety, Therapeutic Exercise PT Plan Frequency BID Duration LOS Discharge Goals Bed Transfer Ability Contact Guard/Hand Hold Sit to Stand Chair Transfer Ability Contact Guard/Hand Hold Ambulation Assistive Device Rolling Walker Ambulation Distance (feet) 5 Discharge Plan PT Discharge Plan Pt will benefit from skilled therapy while in [facility] - Pt will continue to need skilled therapy s/p dc. Pt wishes to return home w/ HHPT and support prior to transitioning to OPPT. Due to sig pain pt was demonstrating today, better functional assesment
--- NOTE | 2021-12-30 16:32 | HMH.OTEV ---
OT Inpatient Evaluation Rehab OT IP Evaluation Start: 12/30/21 11:21 Freq: ONCE Status: Complete Protocol: Document 12/30/21 16:23 MJ (Rec: 12/30/21 16:32 [facility] [id number]) Rehab OT IP Assessment Subjective History Pt oriented x 3 on arrival. Pt agreeable to engage in therapy evaluation. Pt tearful due to pain. Nursing present and administered pain medication. Pt was admitted on 12/30/21 following L TKA. Prior to having surgery, pt lived at home with a roomate. She claims prior to surgery she was independent with all ADLs and IADLs. She still drove. She did use crutches at times during ambulation. Pt reports she plans to return home with her roomates assistance 11/01. The following information was copied from history and physical report: 51-year-old female with ongoing left knee pain secondary to arthritis with a history of arthroscopy in bilateral knees 20 years previous. 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 Xarelto stopped 2 weeks ago. She was admitted after left total knee arthroplasty was completed by Ortho Past medical history of: Aneurysm, Anxiety, Cancer ( cervical,), Congestive Heart Failure, Chronic Obstructive Pulmonary Disease (COPD), Internal Pacemaker, Palpitations, Pulmonary Embolism Subjective I am in a lot of pain. Pt resting in bed on arrival. Pt agreeable to engage in evaluation. Pt completed bed mobility and went from supine to sitting at eob with min
--- NOTE | 2021-12-30 18:19 | PC.NURSE ---
Pt is alert and oriented x4. Lungs clear, bowel sounds active x4. She's required pain meds around the clock for knee and back pain and reports having anxiety. She has been medicated per mar and states she is feeling better this afternoon. Polar pack is to left knee, heels floated per pt request. VSS. Appetite has been good. Bed is locked and in the lowest position, call light within reach.
[2021-12-31] VITALS: BP 126/71; PULSE 86; RESP 19; TEMP 36.7; O2SAT 96
[2021-12-31 04:00] VITALS: BP 101/58; PULSE 89; RESP 20; TEMP 37; O2SAT 95
[2021-12-31 04:22] VITALS: BMI 39.5
--- NOTE | 2021-12-31 04:37 | PC.NURSE ---
Pt is alert and oriented x4, pt has been up to bedside commode per her request with assist x2 with urine output. Pt has required pain medication around the clock for knee pain, treated prn meds per aug. Pt had no IV access at beginning of shift, pt was ultrasound guided to IV access at 0130, 20 L AC. Polar pack and dressing intact and clean on L knee. Lung sounds are clear, HR 70-80s, O2 sat 95-99% on room air, bowel sounds active x4.
[2021-12-31 06:44] LABS: Chloride 109 mmol/L (98-107); Sodium 135 mmol/L (136-145)
[2021-12-31 06:45] LABS: Potassium 4.1 mmoL/L (3.5-5.1)
[2021-12-31 06:47] LABS: Blood Urea Nitrogen 19 mg/dl (7-17); Creatinine Clearance Estimated 170 mL/min (50-200); Estimated Glomerular Filt Rate 76 ml/min (>60); GFR (African American) 92 ML/MIN (>60)
[2021-12-31 06:48] LABS: Anion Gap 8.1 mEq/L (5-15); Calcium 8.4 mg/dl (8.4-10.2); Carbon Dioxide 22 mmol/L (22.0-30.0); Glucose 143 mg/dl (74-100)
[2021-12-31 07:10] LABS: Basophils # 0.1 K/mm3 (0-0.2); Basophils % 0.8 % (0.1-2.0); Eosinophils # 0.4 K/mm3 (0.0-0.4); Eosinophils % 5.7 % (0.1-12.0); Hemoglobin 11.9 g/dL (12.2-16.2); Lymphocytes # 1.5 K/mm3 (0.7-4.5); Lymphocytes % 23.2 % (10-50); Mean Corpuscular HGB Conc 32.1 g/dL (31.8-35.4); Mean Corpuscular Hemoglobin 31.2 pg (27.0-31.2); Mean Corpuscular Volume 97.1 fl (81-99); Mean Platelet Volume 9.4 fl (7.4-10.4); Monocytes # 0.3 K/mm3 (0.1-1.0); Monocytes % 4.4 % (1.7-9.3); Neutrophils # 4.2 K/mm3 (1.8-7.8); Neutrophils % 65.9 % (37.0-80.0); Platelet Count 180 K/mm3 (142-424); Red Blood Count 3.81 M/mm3 (4.20-5.40); Red Cell Distribution Width 14.1 % (11.5-17.5); White Blood Count 6.4 K/mm3 (4.8-10.8)
--- NOTE | 2021-12-31 07:58 | HMH.ANESII ---
[facility] Anesthesia Record Part II Discharge Time: 12:04 Destination: Intensive Care Unit PACU nurse assessment reviewed?: Yes Patient Condition:: Good Anesthesia Complications:: None Swallowing reflex intact?: Yes Cyanosis?: No Blood Pressure: 116/69 Pulse Rate: 61 Temperature: 97.0 F Mental Status: Alert & Oriented Pain level:: 3 Nausea and/or vomitting:: None Intake, IV Amount: 0
[2021-12-31 07:59] VITALS: BP 116/69; PULSE 61; TEMP 36.1
[2021-12-31 08:00] VITALS: BP 127/62; PULSE 83; RESP 18; TEMP 36.7; O2SAT 98
--- NOTE | 2021-12-31 09:31 | HMH.ORTHPN ---
Subjective Date: 12/31/21 Time: 08:45 Principal diagnosis: s/p left total knee arthroplasty Interval history: Patient is a 51-year-old female who underwent an uneventful left total knee arthroplasty performed by Dr. Ellsworth yesterday 12/30/2021. Today the patient is postop day #1. This morning she is lying comfortably in bed. She reports left knee pain and states that it was difficult to sleep last night. She states that she is eating and drinking well denies any episodes of nausea or vomiting. No history of fevers, chills, rigors, or distal tingling/numbness. She states that she has not yet ambulated. She denies any other symptoms or concerns at this time. PN: Obj Ex Vital signs: Temp Pulse Resp BP Pulse Ox 98.1 F 83 18 127/62 98 12/31/21 08:00 12/31/21 08:00 12/31/21 08:00 12/31/21 08:00 12/31/21 08:00 - Constitutional no acute distress, cooperative - Routine HEENT Exam Head: Present: normocephalic, atraumatic Eye: Present: EOMI, PERRL ENT: Present: mucous membranes moist - Routine Neck Exam Present: supple, full ROM, trachea midline. Absent: JVD, lymphadenopathy - Routine Respiratory Exam Absent: accessory muscle use, respiratory distress Comments: Symmetric chest movement, able to speak in complete sentences - Routine Cardiovascular Exam Present: RRR Comments: Normal peripheral pulses - Routine Abdominal Exam Present: soft. Absent: tenderness - Routine Extremities Exam Comments: Upon examination of the lower extremities: The limb lengths are equal. Dressings present over the left knee are clean, dry, and intact. No evidence of drainage or bleeding noted. Out of the dressings, the surgical incision is healthy and healing well. No erythema, induration, purulent drainage, bleeding, or other signs of infection noted. There is a Dermabond Prineo skin closure system in place. Attempted movements of the left knee are somewhat painful. Thigh and calf are soft and nontender; Homans' sign is negative. No clinical evidence of DVT noted. Posterior tibial pulse 2+; capillary refill is brisk. Sensation to light touch is grossly intact throughout. Patient is actively mobilizing the foot, ankle, and toes. Diagnostic imaging: Postoperative x-ray performed at [facility] yesterday 12/30/2021 reviewed along with radiologist report. X-ray of the left knee demonstrates a total knee arthroplasty with orthopedic components in satisfactory alignment. No evidence of orthopedic complications noted. Radiologist report is as follows: FINDINGS: 2 views of the left knee were obtained. There is no acute fracture or dislocation. There has been interval total knee arthroplasty. There is gas in the soft tissues. IMPRESSION: Total knee arthroplasty in good alignment. Reviewed, Interpreted and Dictated by Blaze Johnson MD Transcribed by Dhaval Ford Authenticated and [facility] - Routine Skin Exam Present: intact, warm, normal turgor. Absent: cyanosis, erythema, lesions, jaundice - Routine Neurological Exam Present: alert, oriented X3, CN II-XII intact, moving all extremities, normal tone, normal speech. Absent: sensory deficit, motor deficit, altered mental status - Routine Psychiatric Exam Present: normal affect, cooperative Progress Note: A&P (1) Knee arthropathy Status: Acute (2) Cardiomyopathy Status: Acute (3) Obesity Status: Acute (4) Automatic implantable cardioverter-defibrillator in situ Status: Chronic (5) Chronic anticoagulation Status: Chronic (6) History of pulmonary edema Status: Chronic (7) NICM (nonischemic cardiomyopathy) Status: Chronic Assessment and Plan for All Diagnoses:: I have discussed the clinical findings, procedure performed, and progress with the patient. Dressings present over the left knee are clean, dry, and intact. No evidence
--- NOTE | 2021-12-31 09:41 | HMH.DCSUM ---
General - General Admission date:: 12/30/21 Discharge date: 12/31/21 HPI HPI: 51-year-old female with ongoing left knee pain secondary to arthritis with a history of arthroscopy in bilateral knees 20 years previous. 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 Xarelto stopped 2 weeks ago. She was admitted after left total knee arthroplasty was completed by Ortho Hospital Course Hospital Course: Procedure performed:: Left total knee arthroplasty Surgeon:: Tim Ellsworth MD Jewel Lathe Operator(s):: INGEL Rea Operative findings:: Left knee severe tricompartmental degenerative changes Postoperative plan: Patient will be admitted to Dr. Stoddard for medical management. Mobilize as tolerated with PT/OT starting today. Will resume Xarelto at a prophylactic dose tomorrow. 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 Follow-up with me in 3 weeks. Ortho has seen and recommends: I have discussed the clinical findings, procedure performed, and progress with the patient. Dressings present over the left knee are clean, dry, and intact. No evidence of drainage or bleeding noted. The patient has a Dermabond Prineo skin closure system in place, I have given her appropriate care instructions. Plan to continue PT/OT; patient may ambulate weightbearing as tolerated on the left lower extremity. I have advised her to continue rest, ice, elevation, and pain medication as needed. Plan to continue DVT prophylaxis with Xarelto 10 mg p.o. daily for 2 to 3 days postoperatively, after this the patient may resume her usual home dose of Xarelto 20 mg p.o. daily. I have also advised the patient to avoid placing a pillow behind the knee. All questions were answered and the patient verbalized a good understanding. We will plan to see her in our office for her first postoperative follow-up in approximately 3 weeks; the patient has an appointment scheduled with Dr. Ellsworth on 01/21/2022 at 14:00 PM. Continue medical management as per Dr. Stoddard. 51-year-old female patient resting in bed quietly she reports pain in her tolerable level dressing has been changed this morning prior to fourth and PA incision over the left knee edges well approximated no redness, warmth, or drainage. Discussed discharge with patient she is agreement with close Home health will be arranged and she will have a walker. PLAN: 1. We will discharge home today 2. Xarelto 10 mg p.o. daily for 3 days postoperatively, then Xarelto 20 mg p.o. daily 3. Oxycodone per instruction 4. Follow-up with PCP in 2 weeks. 5. Follow-up with Ortho appointment scheduled 6. Home health arranged 7. [facility] for walker Objective Vital signs: Temp Pulse Resp BP Pulse Ox 98.1 F 83 18 127/62 98 12/31/21 08:00 12/31/21 08:00 12/31/21 08:00 12/31/21 08:00 12/31/21 08:00 no acute distress, obese - *Routine HEENT Exam Head: Present: normocephalic Eye: Present: EOMI ENT: Present: mucous membranes moist - *Routine Neck Exam Present: trachea midline. Absent: tracheal deviation - *Routine Respiratory Exam Present: CTA bilaterally. Absent: accessory muscle use - *Routine Cardiovascular Exam Present: RRR - *Routine Abdominal Exam Present: soft, normoactive bowel sounds. Absent: tenderness, firm - *Routine Extremities Exam Present: edema, full ROM, pulses intact. Absent: cyanosis, clubbing - *Routine Skin Exam Present: intact, dry, warm, wounds Results Labs on day of discharge: Labs from last 24 hours 12/31/21 12/31/21 06:09 06:09 WBC 6.4 RBC 3.81 L Hgb 11.9 L Hct 37.0 MCV 97.1 MCH 31.2 MCHC 32.1 RDW 14.1 Plt Count 180 MPV 9.4 Neut % (Auto) 65.9 Lymph % (Auto) 23.2 [place] % (Auto) 4.4 Eos % (Auto) 5.7 Baso % (Auto) 0.8 Neut # (Auto) 4.2 Lymph # (Auto) 1.5 [place] # (Auto) 0.3 Eos # (Auto) 0.4 Baso # (Auto) 0.1 Sodium
--- NOTE | 2021-12-31 11:32 | SW/DCPLANNER ---
Addendum entered by Kathryn Gold 01/01/22 10:24: [facility]/ [facility] has stated that she can not accept this patient at this time due to staffing. Patient information/order has been faxed to [facility]. [facility]/ [facility] stated that patient information/order was reviewed and services can start tomorrow for this patient. Addendum entered by Kathryn Wooster 01/01/22 08:55: [facility] has called stating they can not accept this patient at this time. Patient information/order has been faxed to [facility]. Addendum entered by Kathryn Gold 12/31/21 13:05: [facility] will deliver rolling walker to patient's home per patient request. Original Note: I spoke with this patient regarding plans once medically stable for discharge. Patient stated that she resides at home with family and will have someone present 11/01. I explained different discharge options: placement vs [facility] vs home health. Patient is only interested in home health services at this time. Patient information/order will be faxed to [facility] for a rolling walker and [facility] health. Patient may discharge later today.
--- NOTE | 2021-12-31 12:54 | PC.NURSE ---
Pt requires crutches to get up her steps into her house due to mobility issues
--- NOTE | 2021-12-31 13:20 | PC.NURSE ---
Went over dc instructions thoroughly with patient and answered all questions. Instructed her on use of crutches. I asked patient if she wanted to wait for her walker to be delivered here or if she wanted it to be delivered to her home. She was concerned that it wouldn't be delivered today. I verified w/care management that walker would be delivered today so she wanted it to be delivered to her home if that was the case. Also verified that home health would contact pt sometime today as well. Pt verbalized understanding and had no further questions.
--- NOTE | 2022-01-01 13:22 | CARE MANAGER ---
Contacted patient related to discharge from hospital. Patient states she is in a lot of pain. She is taking the pain medication every 4 hours and using the ice pack. She has kept her leg straight most of the time and we discussed getting movement in the knee and not keeping the leg straight. Provided her with the name of [facility] for her home health. Discussed contacting surgeon's office if her pain continues at the current intensity. ANITRA Rainey
== END 2021-12-31 13:54 ==
LOC: ICU 06:12
PROVIDERS: Orthopaedic Surgery; Admitting Provider Emergency Medicine; PCP Emergency Medicine; Visit Provider Emergency Medicine
PROC: (CPT 27447; principal; 2021-12-30 07:30)
DX: M17.12 Unilateral primary osteoarthritis, left knee (principal); I42.8 Other cardiomyopathies; E66.9 Obesity, unspecified; Z95.810 Presence of automatic (implantable) cardiac defibrillator; Z79.01 Long term (current) use of anticoagulants; Z85.41 Personal history of malignant neoplasm of cervix uteri; F41.9 Anxiety disorder, unspecified; I50.9 Heart failure, unspecified; J44.9 Chronic obstructive pulmonary disease, unspecified; Z68.39 Body mass index [BMI] 39.0-39.9, adult; Z87.891 Personal history of nicotine dependence; Z20.822 Contact with and (suspected) exposure to COVID-19
CPT/HCPCS: 27447; G0378; 36415; 73560; 80048; 85025; 86850; 97116; 97162; 97166; 97530; C1713; C1776; C9803; J2405; J3370; U0003; U0005

== ENCOUNTER 2022-01-11 17:44 | Emergency (ER) | payer MEDICARE, OTHER, SELFPAY ==
--- NOTE | 2022-01-11 17:45 | HMH.EDGENADL ---
ED Disposition Clinical Impression: Post-operative pain Knee pain Qualifiers: Chronicity: acute Laterality: left Qualified Code(s): M25.562 - Pain in left knee Disposition: Home, Self-Care Condition on Discharge: Fair Instructions: DI for Acute Pain -- Adult, DI for Knee Pain Additional Instructions: You have been evaluated for postoperative knee pain. Please take ibuprofen first. Robaxin for muscle spasm. [place] for severe pain. Please call Dr. Ellsworth's office tomorrow for earliest available appointment. Return to the emergency department at once for any worsening symptoms, pain, fever, chills, nausea, vomiting, other concerns. Prescriptions: methocarbamoL [Methocarbamol] 750 mg PO Q8HP PRN #12 tab PRN Reason: Cramping Transmission Status: Received by [facility] Referrals: Khai Stoddard MD [Primary Care Provider] - Time of Disposition: 19:16 - Critical Care Critical Care Time: No Attestation: On , the high probability of a clinically significant, sudden or life threatening deterioration of the following system(s) required my full and direct attention, intervention and personal management. The time I documented below is in addition to time spent performing reported procedures but includes the following listed in this critical care notation. Medical Decision Making - Medical Records Medical records reviewed: Yes: I reviewed the patient's medical records. - Raji Inquiry Pt receiving controlled substance: No Vital Signs: 01/11/22 17:47 Temperature 98.1 F Temperature Source Oral Pulse Rate [Left Radial] 86 Respiratory Rate 16 Blood Pressure [Right Arm] 119/83 Blood Pressure Mean [Right Arm] 95 02 Sat by Pulse Oximetry 96 Oxygen Delivery Method Room Air - Lab Data Lab Results 01/11/22 17:45: WBC 11.9 H, RBC 4.58, Hgb 14.0, Hct 42.0, MCV 91.8, MCH 30.6, MCHC 33.3, RDW 14.1, Plt Count 428 H, MPV 7.7, Neut % (Auto) 43.7, Lymph % (Auto) 35.5, [place] % (Auto) 3.2, Eos % (Auto) 16.6 H, Baso % (Auto) 1.1, Neut # (Auto) 5.2, Lymph # (Auto) 4.2, [place] # (Auto) 0.4, Eos # (Auto) 2.0 H, Baso # (Auto) 0.1, ESR 23 H 01/11/22 17:45: Sodium 138, Potassium 4.7, Chloride 104, Carbon Dioxide 26, Anion Gap 12.7, BUN 18 H, Creatinine 1.20 H, Estimated Creat Clear 46, Estimated GFR 48 L, Est GFR ( Amer) 58 L, Glucose 126 H, Calcium 10.5 H, Total Bilirubin 0.6, AST 38 H, ALT 45, Alkaline Phosphatase 224 H, C-Reactive Protein 18.1 H, Total Protein 7.8, Albumin 4.4, Globulin 3.4 H, Albumin/Globulin Ratio 1.3 Result diagrams: 01/11/22 17:45 01/11/22 17:45 Orders (Tests/Meds): ED MEDICATIONS Discontinued Medications Generic Name Dose Route Start Last Admin Trade Name Freq PRN Reason Stop Dose Admin Hydrocodone Bitart/Acetaminophen 1 tab 01/11/22 19:39 01/11/22 20:01 Apap/Hydrocodone 325mg/7.5mg Tab PO 01/11/22 19:40 1 tab ONCE ONE Administration Ketorolac Tromethamine 15 mg 01/11/22 19:12 01/11/22 19:22 Ketorolac 30mg/Ml Vial IV 01/11/22 19:13 15 mg ONCE ONE Administration Methocarbamol 500 mg 01/11/22 18:58 01/11/22 19:22 Methocarbamol 500mg Tablet PO 01/11/22 18:59 500 mg ONCE ONE Administration Morphine Sulfate 4 mg 01/11/22 17:46 01/11/22 17:57 Morphine 4mg/Ml Syringe IV 01/11/22 17:47 4 mg ONCE ONE Administration Ondansetron HCl 4 mg 01/11/22 17:46 01/11/22 17:56 Ondansetron 4mg/2ml Vial IV 01/11/22 17:47 4 mg ONCE ONE Administration - Radiology Data #1 Image(s): Knee Image Reviewed: Yes I reviewed the patient's radiology results, Yes I have reviewed radiologist's interpretation Preliminary Findings: Abnormal IMPRESSION: 1. The total knee prosthesis remains intact and normally aligned with no findings of loosening or infection of the prosthesis. 2. Soft tissue emphysema has significantly decreased compared with the postop exam from 12/30/2021, but there are residual air bubbles anteriorly which could be
--- NOTE | 2022-01-11 17:46 | XR_ITS ---
PROCEDURE INFORMATION: Exam: XR Left Knee Exam date and time: 01/11/2022 5:53 PM Age: 51 years old Clinical indication: Pain; Left; Prior surgery; Surgery date: <1 month; Surgery type: Knee replacement; Additional info: Post-op pain TECHNIQUE: Imaging protocol: Radiologic exam of the Left knee. Views: 3 views. COMPARISON: CR XR KNEE LT 2V 12/30/2021 11:45 AM FINDINGS: Bones/joints: The total knee prosthesis appears intact and normally aligned with no evidence of interval loosening or infection of the hardware. There is a deformity of distal lateral femoral diametaphyseal cortex with scalloped, indented contour of the cortex extending a length of approximately 6.5 cm and mild cortical-periosteal thickening which is best seen on oblique series 2, I have no prior oblique images available to compare but this is likely a chronic preoperative deformity, less likely due to active infection. A deformity in this area was reported on a previous knee exam from 08/29/2021, those images are not available on PACS for direct comparison. Slight cortical-periosteal thickening of proximal tibial and fibular diaphyses along the interosseous ligament is likely chronic stress reaction. Small knee joint effusion.No acute fracture or dislocation. Soft tissues: There are minimal residual air bubbles in the soft tissues, the largest in the anterior subcutaneous tissues slightly above the knee of 2.8 cm lateral series 3, image 1, minimal residual air at the anterior knee joint, which could be residual postop air versus infection with gas-forming organism. This has significantly decreased compared with 12/30/2021. No radiopaque foreign bodies seen. There is increased soft tissue swelling and edema anterior to the knee, which could be cellulitis or lymphedema. IMPRESSION: 1. The total knee prosthesis remains intact and normally aligned with no findings of loosening or infection of the prosthesis. 2. Soft tissue emphysema has significantly decreased compared with the postop exam from 12/30/2021, but there are residual air bubbles anteriorly which could be residual postop air versus infection with gas-forming organism. There is increased soft tissue swelling and density of the soft tissues in the anterior knee and calf, correlate clinically for cellulitis or lymphedema. 3. Distal femoral cortical deformity as detailed above, probably chronic rather than active infection, reported on previous knee radiographs of 08/29/2021, but those images are not available for comparison.
[2022-01-11 17:47] VITALS: BP 119/83; PULSE 86; RESP 16; TEMP 36.7; O2SAT 96; BMI 49.6
[2022-01-11 17:58] LABS: Basophils # 0.1 K/mm3 (0-0.2); Basophils % 1.1 % (0.1-2.0); Eosinophils % 16.6 % (0.1-12.0); Lymphocytes # 4.2 K/mm3 (0.7-4.5); Lymphocytes % 35.5 % (10-50); Mean Corpuscular HGB Conc 33.3 g/dL (31.8-35.4); Mean Corpuscular Hemoglobin 30.6 pg (27.0-31.2); Mean Corpuscular Volume 91.8 fl (81-99); Mean Platelet Volume 7.7 fl (7.4-10.4); Monocytes # 0.4 K/mm3 (0.1-1.0); Monocytes % 3.2 % (1.7-9.3); Neutrophils # 5.2 K/mm3 (1.8-7.8); Neutrophils % 43.7 % (37.0-80.0); Platelet Count 428 K/mm3 (142-424); Red Blood Count 4.58 M/mm3 (4.20-5.40); Red Cell Distribution Width 14.1 % (11.5-17.5); White Blood Count 11.9 K/mm3 (4.8-10.8)
[2022-01-11 18:02] LABS: Alanine Aminotransferase 45 U/L (12-78); Albumin Level 4.4 g/dl (3.5-5.0); Albumin/Globulin Ratio 1.3 (1.1-1.8); Alkaline Phosphatase 224 U/L (38-126); Anion Gap 12.7 mEq/L (5-15); Aspartate Amino Transferase 38 U/L (14-36); Bilirubin,Total 0.6 mg/dl (0.2-1.3); Blood Urea Nitrogen 18 mg/dl (7-17); Calcium 10.5 mg/dl (8.4-10.2); Carbon Dioxide 26 mmol/L (22.0-30.0); Chloride 104 mmol/L (98-107); Creatinine Clearance Estimated 46 mL/min (50-200); Estimated Glomerular Filt Rate 48 ml/min (>60); GFR (African American) 58 ML/MIN (>60); Globulin 3.4 g/dL (1.3-3.2); Glucose 126 mg/dl (74-100); Potassium 4.7 mmoL/L (3.5-5.1); Sodium 138 mmol/L (136-145); Total Protein,Serum 7.8 g/dl (6.3-8.2)
[2022-01-11 18:07] LABS: C-Reactive Protein 18.1 mg/L (0-4)
--- NOTE | 2022-01-11 18:09 | PC.NURSE ---
PT BACK FROM XRAY
[2022-01-11 18:21] LABS: Erythrocyte Sedimentation Rate 23 mm/hr (0-20)
--- NOTE | 2022-01-11 18:27 | PC.NURSE ---
updating pt on poc
--- NOTE | 2022-01-11 18:57 | SUR.OPER ---
called tool builder to angie mathias
--- NOTE | 2022-01-11 19:05 | PC.NURSE ---
dr hurtado is the ortho dr that we are trying to get in touch with not dr grover
--- NOTE | 2022-01-11 19:07 | PC.NURSE ---
in file operator called back to let us know that dr duong is survey questionnaire designer and they are paging him
--- NOTE | 2022-01-11 19:09 | PC.NURSE ---
on the phone with dr duong
--- NOTE | 2022-01-11 20:12 | PC.NURSE ---
Patient was given po pain medication. Pt states that his medication will not likely be strong enough to control her pain.
[2022-01-11 20:50] VITALS: BP 115/80; PULSE 82; RESP 18; TEMP 36.8; O2SAT 99
== END 2022-01-11 20:52 | disposition home or self-care (01) ==
PROVIDERS: Emergency Provider Emergency Medicine; PCP Emergency Medicine
DX: G89.18 Other acute postprocedural pain (principal); M25.562 Pain in left knee; Z79.899 Other long term (current) drug therapy; Z88.0 Allergy status to penicillin; Z88.1 Allergy status to other antibiotic agents; J44.9 Chronic obstructive pulmonary disease, unspecified; I11.0 Hypertensive heart disease with heart failure; E78.5 Hyperlipidemia, unspecified; I50.9 Heart failure, unspecified; F41.9 Anxiety disorder, unspecified; R00.2 Palpitations; Z95.0 Presence of cardiac pacemaker
CPT/HCPCS: 73562; 80053; 85025; 85651; 86140; 96374; 96375; 99284; J2405

== ENCOUNTER 2022-01-15 17:56 | Inpatient (IN) | payer MEDICARE, OTHER, SELFPAY ==
[2022-01-15 17:55] VITALS: BP 99/55; PULSE 106; RESP 19; TEMP 36.9; O2SAT 96; BMI 39.0
[2022-01-15 18:03] VITALS: BP 100/62; PULSE 92; O2SAT 95
--- NOTE | 2022-01-15 18:05 | PC.NURSE ---
Pt states that she is prescribed 7.5mg Percocet for chronic pain and 5mg Oxycodone for breakthrough pain. Advises that she last had them 4-5 hours COAGULATOR to ED.
--- NOTE | 2022-01-15 18:22 | XR_ITS ---
PROCEDURE INFORMATION: Exam: XR Left Knee Exam date and time: 01/15/2022 6:44 PM Age: 51 years old Clinical indication: Prior surgery; Surgery date: <1 month; Surgery type: Left knee replacement 12/30/2021. Patient had a lot of fluid loss at incision site last night. Patient is in severe pain at this time. Patient has chf she stated. ; Additional info: Post op pain TECHNIQUE: Imaging protocol: Radiologic exam of the Left knee. Views: 1 or 2 views. COMPARISON: CR Knee L 01/11/2022 5:53 PM FINDINGS: Bones/joints: Status post total knee arthroplasty. The hardware appears intact. Soft tissues: Relatively severe anterolateral soft tissue edema with soft tissue gas as well. IMPRESSION: Relatively severe anterolateral soft tissue edema with soft tissue gas as well. While this could be postoperative inflammation, infection could produce this appearance as well.
--- NOTE | 2022-01-15 18:23 | HMH.EDEXTP ---
ED Disposition Condition on Discharge: Good - Critical Care Critical Care Time: No <Сергей Matos - Last Filed: 01/15/22 20:11> <Anila Camp - Last Filed: 01/16/22 04:26> Clinical Impression: Post-operative pain, Swelling of left knee joint, Postoperative infection of knee Disposition: Admitted As Inpatient Attestation: On 01/15/22, the high probability of a clinically significant, sudden or life threatening deterioration of the following system(s) required my full and direct attention, intervention and personal management. The time I documented below is in addition to time spent performing reported procedures but includes the following listed in this critical care notation. Medical Decision Making - Medical Records Medical records reviewed: Yes: I reviewed the patient's medical records. - Raji Inquiry Pt receiving controlled substance: No <Сергей Matos - Last Filed: 01/15/22 20:11> - Lab Data Result diagrams: 01/15/22 20:58 01/15/22 20:58 <Anila Camp N - Last Filed: 01/16/22 04:26> Vital Signs: 01/15/22 17:55 01/15/22 18:03 01/16/22 00:52 Temperature 98.4 F 100 F H Temperature Source Oral Oral Pulse Rate 92 H Pulse Rate [Right Radial] 106 H 127 H Respiratory Rate 19 16 Blood Pressure 100/62 L Blood Pressure [Right Arm] 99/55 L 106/54 L Blood Pressure Mean [Right Arm] 69 71 Blood Pressure Source Automatic Cuff Blood Pressure Source [Right Arm] Automatic Cuff Automatic Cuff Blood Pressure Position Sitting Blood Pressure Position [Right Arm] Sitting 02 Sat by Pulse Oximetry 96 95 99 Oxygen Delivery Method Room Air Room Air Room Air - Lab Data Lab Results 01/15/22 20:58: WBC 18.8 H, RBC 3.74 L, Hgb 11.7 L, Hct 36.6 L, MCV 97.9, MCH 31.4 H, MCHC 32.0, RDW 14.0, Plt Count 314, MPV 8.7, Neut % (Auto) 77.5, Lymph % (Auto) 16.1, [place] % (Auto) 3.6, Eos % (Auto) 2.2, Baso % (Auto) 0.5, Neut # (Auto) 14.6 H, Lymph # (Auto) 3.0, [place] # (Auto) 0.7, Eos # (Auto) 0.4, Baso # (Auto) 0.1, Total Counted 100, Neutrophils % (Manual) 65, Lymphocytes % (Manual) 30, Monocytes % (Manual) 4, Eosinophils % (Manual) 1, Nucleated RBCs 2, Platelet Estimate Normal, Deputy Cells 1+ 01/15/22 20:58: Sodium 136, Potassium 4.2, Chloride 106, Carbon Dioxide 25, Anion Gap 9.2, BUN 31 H, Creatinine 1.40 H, Estimated Creat Clear 96, Estimated GFR 40 L, Est GFR ( Amer) 48 L, Glucose 113 H, Calcium 9.8, Total Bilirubin 0.8, AST 27, ALT 27, Alkaline Phosphatase 223 H, C-Reactive Protein 384.5 H, Total Protein 6.9, Albumin 3.6, Globulin 3.3 H, Albumin/Globulin Ratio 1.1 01/15/22 20:58: Lactate 1.2 01/15/22 20:58: ESR 136 H 01/15/22 20:58: PT 13.0 H, INR 1.16 H, APTT 39.4 H 01/16/22 01:05: SARS-CoV-2 (PCR) Not detected, Influenza A Untype (PCR) Not detected, Influenza Type B (PCR) Not detected Orders (Tests/Meds): ED MEDICATIONS Generic Name Dose Route Start Last Admin Trade Name Freq PRN Reason Stop Dose Admin Acetaminophen 650 mg 01/16/22 00:42 Acetaminophen 325mg Tab PO 02/15/22 00:33 Q4HP PRN Fever or Mild Pain Hydromorphone HCl 1 mg 01/16/22 00:42 01/16/22 03:05 Hydromorphone 2mg/Ml Syringe IV 02/15/22 00:31 1 mg Q2HP PRN Administration Moderate to Severe Pain Lactated Ringer's 1,000 mls @ 50 mls/hr 01/16/22 00:45 01/16/22 01:57 Lactated Ringer's 1000 Ml Bag IV 02/15/22 00:44 50 mls/hr .Q20H ERVIN Administration Ibuprofen 400 mg 01/16/22 00:42 Ibuprofen 400 Mg Tablet PO 02/15/22 00:33 Q6HP PRN Mild Pain Iopamidol 120 ml 01/16/22 01:25 01/16/22 01:27 Iopamidol-370 (76%);100ml Bottle IV 01/16/22 01:26 120 ml ONCE ONE Administration Ondansetron HCl 4 mg 01/16/22 00:42 Ondansetron 4mg/2ml Vial IV 02/15/22 00:33 Q8HP PRN Nausea Pantoprazole Sodium 40 mg 01/16/22 09:00 Pantoprazole 40mg Tablet PO 02/15/22 08:59 DAILY ERVIN Sodium Chloride 50 ml 01/16/22 01:25 01/16/22 01:27 0.9 % Sodium Ch
--- NOTE | 2022-01-15 18:46 | PC.NURSE ---
Pt medicated and xrays performed
--- NOTE | 2022-01-15 21:02 | PC.NURSE ---
Labs collected at this time. No labs previously received per LAB.
[2022-01-15 21:18] LABS: Basophils # 0.1 K/mm3 (0-0.2); Basophils % 0.5 % (0.1-2.0); Eosinophils # 0.4 K/mm3 (0.0-0.4); Eosinophils % 2.2 % (0.1-12.0); Hematocrit 36.6 % (37.0-47.0); Hemoglobin 11.7 g/dL (12.2-16.2); Lymphocytes % 16.1 % (10-50); Mean Corpuscular Hemoglobin 31.4 pg (27.0-31.2); Mean Corpuscular Volume 97.9 fl (81-99); Mean Platelet Volume 8.7 fl (7.4-10.4); Monocytes # 0.7 K/mm3 (0.1-1.0); Monocytes % 3.6 % (1.7-9.3); Neutrophils # 14.6 K/mm3 (1.8-7.8); Neutrophils % 77.5 % (37.0-80.0); Platelet Count 314 K/mm3 (142-424); Red Blood Count 3.74 M/mm3 (4.20-5.40); White Blood Count 18.8 K/mm3 (4.8-10.8)
[2022-01-15 21:29] LABS: MANUAL DIFFERENTIAL MANUAL DIFFERENTIAL (MANUAL DIFF)
[2022-01-15 21:38] LABS: Alanine Aminotransferase 27 U/L (12-78); Albumin Level 3.6 g/dl (3.5-5.0); Albumin/Globulin Ratio 1.1 (1.1-1.8); Alkaline Phosphatase 223 U/L (38-126); Anion Gap 9.2 mEq/L (5-15); Aspartate Amino Transferase 27 U/L (14-36); Bilirubin,Total 0.8 mg/dl (0.2-1.3); Blood Urea Nitrogen 31 mg/dl (7-17); Calcium 9.8 mg/dl (8.4-10.2); Carbon Dioxide 25 mmol/L (22.0-30.0); Chloride 106 mmol/L (98-107); Creatinine Clearance Estimated 96 mL/min (50-200); Estimated Glomerular Filt Rate 40 ml/min (>60); GFR (African American) 48 ML/MIN (>60); Globulin 3.3 g/dL (1.3-3.2); Glucose 113 mg/dl (74-100); Potassium 4.2 mmoL/L (3.5-5.1); Sodium 136 mmol/L (136-145); Total Protein,Serum 6.9 g/dl (6.3-8.2)
[2022-01-15 21:39] LABS: Lactic Acid 1.2 mmol/L (0.7-2.1)
[2022-01-15 21:58] LABS: C-Reactive Protein 384.5 mg/L (0-4)
[2022-01-15 22:12] LABS: Eosinophils % 1 % (0-3); Lymphocytes % 30 % (10-50); Monocytes % 4 % (2-9); Neutrophils % 65 % (42-76); Nucleated Red Blood Cells 2; Platelet Estimate Normal; Total Cells Counted 100
[2022-01-15 22:13] LABS: Burr Cells 1+
[2022-01-15 22:35] LABS: Erythrocyte Sedimentation Rate 136 mm/hr (0-20)
[2022-01-16] VITALS (28 sets, daily range): BP systolic 87–149; BP diastolic 54–101; PULSE 88–129; RESP 16–22; TEMP 36.1–37.7; O2SAT 95–99; BMI 38.8; BMI 38.5
--- NOTE | 2022-01-16 00:17 | CT_ITS ---
PROCEDURE INFORMATION: Exam: CT Left Lower Extremity With Contrast, Knee Exam date and time: 01/16/2022 12:57 AM Age: 51 years old Clinical indication: Pain; Left; Prior surgery; Surgery date: <1 month; Surgery type: Knee replacement 12/30/21; Additional info: Swelling, fever post knee replacement TECHNIQUE: Imaging protocol: CT of the Left lower extremity with intravenous contrast was performed. Exam focused on the knee. Radiation optimization: All CT scans at this facility use at least one of these dose optimization techniques: automated exposure control; mA and/or kV adjustment per patient size (includes targeted exams where dose is matched to clinical indication); or iterative reconstruction. Contrast material: ISOVUE; Contrast volume: 120 ml; Contrast route: IV; COMPARISON: CR XR KNEE LT 2V 01/15/2022 6:44 PM FINDINGS: Bones/joints: Along the anterior tibia, there is a peripherally enhancing fluid collection measuring 5.9 x 1.6 cm on image 77 series 6. Status post total knee arthroplasty. The hardware appears intact. Moderate suprapatellar knee effusion with gas and synovial thickening and enhancement. Soft tissues: In the anterior soft tissues, there is a 3 x 2.6 cm air and fluid collection with punctate densities. Abscesses most likely. While these tiny high attenuation foci could be postsurgical changes, foci of active contrast extravasation or pseudoaneurysm could produce a similar appearance. Moderate edema and soft tissue fluid in the anterior soft tissues. Edema in the anterior thigh compartment muscles may represent myositis. IMPRESSION: 1. In the anterior soft tissues, there is a 3 x 2.6 cm air and fluid collection with punctate densities. Abscess is most likely. While these tiny high attenuation foci are likely postsurgical changes, foci of active contrast extravasation or pseudoaneurysm could produce a similar appearance. 2. Along the anterior tibia, there is a peripherally enhancing fluid collection measuring 5.9 x 1.6 cm on image 77 series 6. This is suspicious for developing abscess. 3. Moderate suprapatellar knee effusion with gas and synovial thickening and enhancement. Septic arthritis versus synovitis would be most likely. Consider fluid sampling. 4. THIS REPORT CONTAINS FINDINGS THAT MAY BE CRITICAL TO PATIENT CARE. The findings were verbally communicated via telephone conference with Anila Camp at 1:44 AM EDT on 01/16/2022. The findings were acknowledged and understood.
[2022-01-16 00:53] LABS: Activated Partial Thrombo Time 39.4 seconds (22.8-30.6); INR 1.16 (0.9-1.1)
--- NOTE | 2022-01-16 01:06 | PC.NURSE ---
Pt gone to RAD for CT
[2022-01-16 01:12] LABS: Coronavirus 19, PCR Not Detected (NotDetected); Influenza A, PCR Not Detected (NotDetected); Influenza B, PCR Not Detected (NotDetected)
--- NOTE | 2022-01-16 01:29 | PC.NURSE ---
Pt back from RAD
--- NOTE | 2022-01-16 01:43 | PC.NURSE ---
Dr. Camp s/w MARILOU
--- NOTE | 2022-01-16 01:47 | PC.NURSE ---
pt. arrived to floor via stretcher at this time
--- NOTE | 2022-01-16 05:16 | PC.NURSE ---
pt admitted with left knee pain, pt rates pain 10/10 with goal rate of 6/10; noted left knee very painful to patient when moving leg in any way, left knee swollen with small to moderate amount of blood tinged drainage noted from scar/incision, ice packs applied for comfort, pt s/p left knee replacement on 12/30; pt is alert and oriented x4, pt with h/o cardiac defibrillator, dilaudid given as prescribed with some relief, VSS at this time, mild fever noted, no other issues or concerns noted at this time.
--- NOTE | 2022-01-16 07:29 | PC.NURSE ---
0700 dr whitfield at bedside discussing surgery with patient and consent was obtained at this time, dr whitfield was also notified about patients history of PE and takes xarelto at home and heparin order was cancelled, dr whitfield states that he does not want anything given at this time due to surgery today on left knee.
--- NOTE | 2022-01-16 08:32 | PC.NURSE ---
Addendum entered by Kathryn Bishop RN 01/16/22 08:49: md stated to only bolus what was remaining in current fluid back (approximately 600ml). does not want a full bolus because of patients chf. per dr. muniz Original Note: spoke with david rudd about patient blood pressure and requests for pain medication and anxiety meds. also noted with current bp patient is triggering for sepsis. stated to order the lactic and blood cultures. antibiotic orders also given. waiting on md who is also rounding on patient to verify if they want a full sepsis bolus considering patient has a history of chf.
--- NOTE | 2022-01-16 08:46 | HMH.PHACONS ---
- Pharmacy Consult Date: 01/16/22 Time: 08:46 Referring provider: Bentley ARAIZA APRN Reason for Consult:: VANCOMCYIN DOSING Allergies and ADEs:: Allergies Allergy/AdvReac Type Severity Reaction Status Date / Time Penicillins Allergy Severe Swelling Verified 12/30/21 09:54 of Lip/Tongue/Throat clindamycin Allergy Intermediate Rash Verified 12/26/21 13:53 doxycycline Allergy Intermediate Unknown Verified 12/30/21 09:54 allergy reaction ciprofloxacin Allergy Nausea Verified 12/30/21 09:54 Home Medications:: Home Medications Medication Instructions Recorded Confirmed Type cyclosporine 0.05 % eye drops in a 1 drp OPHTHALMIC Q12H 10/29/20 01/16/22 History dropperette ondansetron HCl 4 mg tablet 4 mg PO TID PRN #30 tab 10/31/21 01/16/22 Rx Atorvastatin Calcium [Lipitor 40mg 40 mg PO HS 12/29/21 01/16/22 History Tab] Famotidine [Acid Home Aid] 20 mg PO BID 12/29/21 01/16/22 History Fluticasone Propionate 1 spray NS BID 12/29/21 01/16/22 History Gabapentin 600 mg PO TID 12/29/21 01/16/22 History Levocetirizine Dihydrochloride 5 mg PO DAILY 12/29/21 01/16/22 History Levothyroxine Sodium 200 mcg PO DAILYDM 12/29/21 01/16/22 History [Levothyroxine 200mcg (0.2mg) Tab] Mesalamine 1,600 mg PO TID 12/29/21 01/16/22 History Metoprolol Succinate [Metoprolol 150 mg PO DAILY 12/29/21 01/16/22 History Succinate 100mg Tablet*] Nitroglycerin See Rx Instructions .ROUTE .COMPLEX 12/29/21 01/16/22 History Oxybutynin Chloride 5 mg PO BID 12/29/21 01/16/22 History Rivaroxaban [Xarelto 20mg Tablet*] 20 mg PO QPMWITHMEAL 12/29/21 01/16/22 History Sacubitril/Valsartan [Entresto 49 1 tab PO BID 12/29/21 01/16/22 History mg-51 mg Tablet] Spironolactone [Spironolactone 25 mg PO DAILY 12/29/21 01/16/22 History 25mg Tablet] Torsemide [Demadex] 20 mg PO DAILY 12/29/21 01/16/22 History clonazePAM [Klonopin 1mg tablet] 1 mg PO TID 12/29/21 01/16/22 History Oxycodone HCl [Oxycodone 5mg tab 5 mg PO Q4-6H PRN #40 tab 12/30/21 01/16/22 Rx (IR)] Oxycodone HCl/Acetaminophen 1 tab PO QIDP PRN 12/30/21 01/16/22 History [Oxycodone-Acetaminophn 7.5-325] hydrocodone 7.5 mg-acetaminophen 1 tab PO Q4-6H PRN #30 tab 01/02/22 01/16/22 Rx 325 mg tablet methocarbamoL [Methocarbamol] 750 mg PO Q8HP PRN #12 tab 01/11/22 01/16/22 Rx oxycodone 5 mg tablet 5 mg PO Q6H PRN #30 tab 01/14/22 01/16/22 Rx Albuterol Sulfate [Albuterol See Rx Instructions .ROUTE .COMPLEX 01/16/22 01/16/22 History Sulfate Hfa] Height: 1.8 m Weight: 125.963 kg Laboratory Results:: Laboratory Results - last 24 hr 01/15/22 20:58: WBC 18.8 H, RBC 3.74 L, Hgb 11.7 L, Hct 36.6 L, MCV 97.9, MCH 31.4 H, MCHC 32.0, RDW 14.0, Plt Count 314, MPV 8.7, Neut % (Auto) 77.5, Lymph % (Auto) 16.1, [place] % (Auto) 3.6, Eos % (Auto) 2.2, Baso % (Auto) 0.5, Neut # (Auto) 14.6 H, Lymph # (Auto) 3.0, [place] # (Auto) 0.7, Eos # (Auto) 0.4, Baso # (Auto) 0.1, Total Counted 100, Neutrophils % (Manual) 65, Lymphocytes % (Manual) 30, Monocytes % (Manual) 4, Eosinophils % (Manual) 1, Nucleated RBCs 2, Platelet Estimate Normal, Germaine Cells 1+ 01/15/22 20:58: Sodium 136, Potassium 4.2, Chloride 106, Carbon Dioxide 25, Anion Gap 9.2, BUN 31 H, Creatinine 1.40 H, Estimated Creat Clear 96, Estimated GFR 40 L, Est GFR ( Amer) 48 L, Glucose 113 H, Calcium 9.8, Total Bilirubin 0.8, AST 27, ALT 27, Alkaline Phosphatase 223 H, C-Reactive Protein 384.5 H, Total Protein 6.9, Albumin 3.6, Globulin 3.3 H, Albumin/Globulin Ratio 1.1 01/15/22 20:58: Lactate 1.2 01/15/22 20:58: ESR 136 H 01/15/22 20:58: PT 13.0 H, INR 1.16 H, APTT 39.4 H 01/16/22 01:05: SARS-CoV-2 (PCR) Not detected, Influenza A Untype (PCR) Not detected, Influenza Type B (PCR) Not detected Medical History: Reports:: Aneurysm, Anxiety, Cancer (cervical cancer), Cardiomyopathy, Congestive Heart Failure, Chronic Obstructive Pulmonary Disease (COPD), Deep Vein Thrombosis, Hyperlipidemia, Hypertension, Internal Pacemaker (defibr
--- NOTE | 2022-01-16 08:53 | HMH.HP ---
*Admission Date: 01/16/22 *Chief complaint: Pain and swelling to left knee status post total knee replacement *History of present illness: 51-year-old female patient presents to the [facility] emergency department with reports of fever, increasing left knee pain, swelling and drainage from surgical incision and progressively worsening over the last 3 days. She does have an elevated white blood cell count of 18.8, CRP 385, and ESR 136. Ortho was consulted and ordered CT of left knee which revealed suspicious for developing abscess and possible areas of bleeding. She did have a total knee replacement on 12/30/2021 and was in the emergency department 4 days prior for drainage from incision site and Steri-Strips and bandage were placed over area. Blood pressure this morning 90s/50s, heart rate 105. We will give 1 L bolus of fluids due to history of congestive heart failure Ortho has seen and tentatively planned for surgery this afternoon [facility] History I have reviewed the patient's past medical history: Yes Medical History: Reports:: Aneurysm, Anxiety, Cancer (cervical cancer), Cardiomyopathy, Congestive Heart Failure, Chronic Obstructive Pulmonary Disease (COPD), Deep Vein Thrombosis, Hyperlipidemia, Hypertension, Internal Pacemaker (defibrillator only), MRSA, Palpitations, Pulmonary Embolism Denies:: Diabetes Mellitus Type 1, Diabetes Mellitus Type 2, Seizures *Have you ever received a pneumonia vaccine?: Yes *Have you received a flu vaccine this season?: No (cant take had allergic reaction to it) Other Medical History: Reports: Hypothyroidism, Thyroid Disease. Denies: Blood Transfusion Reaction Laterality Cases: Left: Lumpectomy, Total Knee Replacement Other Surgeries: Yes: Cardiac Catheterization, Cholecystectomy, Hysterectomy-Total, Pacemaker (defibrillator only) Amputation: No Fractures: Yes (left leg/ankle pins and rods) - *Social History Last grade of school completed: 11th or 12th Smoking Status: Current every day smoker Tobacco Type: cigarettes # Packs/Day (cigarettes): 0 Alcohol Intake: current Alcohol Intake Frequency:: holidays/special occasions only Substance Use Type: marijuana Last Used Substance: days (ago) *Occupational Status:: disabled Housing: house Household Members: friend(s) *Travel in the last 8 weeks: None - Psychiatric History Pschychiatric History:: Reports:: Anxiety Family Hx:: No significant family history Review of Systems - Review of Systems Review of systems:: pertinent systems reviewed and negative unless documented below - Constitutional Reports fever(s), Denies fatigue - Eyes Denies blurry vision, Denies double vision - ENT Denies dizziness, Denies difficulty swallowing - *Cardiovascular Denies chest pain, Denies chest pain at rest, Denies shortness of breath - *Respiratory Denies shortness of breath - *Gastrointestinal Denies abdominal pain, Denies change in stools - *Musculoskeletal Reports abnormal walking, Reports joint pain, Reports joint swelling, Reports limited joint movement - Integumentary/Breasts Comments: Left knee with healing incision and bruising, bloody drainage, and painful - *Neurologic Denies tingling/numbness/burning sensations, Denies radiating pain - Psychiatric Denies behavioral changes, Denies sensing things others do not sense - Endocrine Denies cold intolerance, Denies excessive sweating - Hematologic/Lymphatic Denies easy bleeding, Denies easy bruising - Allergic/Immunologic Denies GI upset with certain foods, Denies throat swelling Meds Home Medications Medication Instructions Recorded Confirmed Type cyclosporine 0.05 % eye drops in a 1 drp OPHTHALMIC Q12H 10/29/20 01/16/22 History dropperette ondansetron HCl 4 mg tablet 4 mg PO TID PRN #30 tab 10/31/21 01/16/22 Rx Atorvastatin Calcium [Lipitor 40mg 40 mg PO HS 12/29/21 01/16/22 History Tab] Famotidine [Acid Tile Helper] 20 mg PO BID 12/29/2101/16
[2022-01-16 09:02] LABS: Lactic Acid 0.8 mmol/L (0.7-2.1)
--- NOTE | 2022-01-16 09:44 | P.CONPHA_ITS ---
[facility] Pharmacy VTE Monitoring - Patient Demographics Admission date: 01/16/22 Report Date: 01/16/22 Time: 09:44 Allergies/Adverse Reactions: Patient Allergies Penicillins Allergy (Severe, Verified 12/30/21 09:54) Swelling of Lip/Tongue/Throat clindamycin Allergy (Intermediate, Verified 12/26/21 13:53) Rash doxycycline Allergy (Intermediate, Verified 12/30/21 09:54) Unknown allergy reaction ciprofloxacin Allergy (Verified 12/30/21 09:54) Nausea Height: 1.8 m Weight: 125.963 kg Patient Problems: Current Active Problems Post-operative pain (Acute) Knee pain (Acute) Swelling of left knee joint (Acute) Postoperative infection of knee (Acute) Severe sepsis (Acute) CHF (congestive heart failure) (Acute) Total knee replacement status (Acute) Obesity (Acute) - VTE Risk Labs: VTE Related Lab Results Hgb 11.7 g/dL (12.2-16.2) L 01/15/22 20:58 Hct 36.6 % (37.0-47.0) L 01/15/22 20:58 Plt Count 314 K/mm3 (142-424) 01/15/22 20:58 PT 13.0 seconds (10.1-12.5) H 01/15/22 20:58 INR 1.16 (0.9-1.1) H 01/15/22 20:58 APTT 39.4 seconds (22.8-30.6) H 01/15/22 20:58 BUN 31 mg/dl (7-17) H 01/15/22 20:58 Creatinine 1.40 mg/dl (0.52-1.04) H 01/15/22 20:58 Estimated Creat Clear 96 mL/min (50-200) 01/15/22 20:58 Was VTE Risk Assessment Performed: Yes VTE Score: 9 VTE Risk Level: Moderate Risk Clinical Trial Participant: No - Prophylaxis VTE Prophylaxis Ordered?: Yes Types of VTE Prophylaxis: TEDS Knee High
--- NOTE | 2022-01-16 09:49 | HMH.PHAINT ---
HOME MEDICATION LIST VERIFIED USING LIST FROM OUTPATIENT PHARMACY
--- NOTE | 2022-01-16 09:52 | HMH.ANESCL ---
[facility] Anesthesia Checklist - Patient Identification Patient Identification: Arm Band - Structural Data Admitted From: Inpatient Planned Operative Procedure/s: I & D knee Consent for Planned Operative Procedure(s) Verified: Yes - NPO Status Verified Time NPO: 00:00 - Additional verifications Anesthesia Reactions: No Hx Blood Transfusions: No Blood Transfusion Reaction: No - Airway Assessment C-Spine Mobility Assessed: Yes TMJ Mobility Assessed: Yes Dentition: Poor Dentition - Neurological Assessment Level of Consciousness: Awake Hx Seizures: No Numbness or tingling in extremities: No - Anesthesia Plan Anesthesia Risk discussed: Yes Anesthesia Plan: Verified ASA Class: IV (IV E) Anesthesia Type: General [facility] History I have reviewed the patient's past medical history: Yes Medical History: Reports:: Aneurysm, Anxiety, Cancer (cervical cancer), Cardiomyopathy, Congestive Heart Failure, Chronic Obstructive Pulmonary Disease (COPD), Deep Vein Thrombosis, Hyperlipidemia, Hypertension, Internal Pacemaker (defibrillator only), MRSA, Palpitations, Pulmonary Embolism Denies:: Diabetes Mellitus Type 1, Diabetes Mellitus Type 2, Seizures *Have you ever received a pneumonia vaccine?: Yes *Have you received a flu vaccine this season?: No (cant take had allergic reaction to it) Other Medical History: Reports: Hypothyroidism, Thyroid Disease. Denies: Blood Transfusion Reaction Anesthesia experience/problems:: None Laterality Cases: Left: Lumpectomy, Total Knee Replacement Other Surgeries: Yes: Cardiac Catheterization, Cholecystectomy, Hysterectomy-Total, Pacemaker (defibrillator only) Amputation: No Fractures: Yes (left leg/ankle pins and rods) - *Social History Last grade of school completed: 11th or 12th Smoking Status: Current every day smoker Tobacco Type: cigarettes # Packs/Day (cigarettes): 0 Alcohol Intake: current Alcohol Intake Frequency:: holidays/special occasions only Substance Use Type: marijuana Last Used Substance: days (ago) *Occupational Status:: disabled Housing: house Household Members: friend(s) *Travel in the last 8 weeks: None - Psychiatric History Pschychiatric History:: Reports:: Anxiety Family Hx:: No significant family history
--- NOTE | 2022-01-16 10:18 | HMH.ORTHOCON ---
*Admission Date: 01/16/22 *Reason for consult:: Left knee surgical site infection *History of present illness: 51-year-old female status post left total knee arthroplasty with Dr. Ellsworth roughly 3 weeks ago. She had been doing quite well with physical therapy, but began noticing some drainage from the distalmost aspect of her incision. She is on xarelto at baseline, high BMI. She presented to the emergency department. Dr. Ellsworth was not called. At that visit, her distal incision was glued and then sealed shut with a Steri-Strip. She returned to the emergency department last night with worsening pain. She has significantly elevated inflammatory markers, inability to range her knee. She was admitted and I was consulted with concern for left knee surgical site infection. [facility] History Medical History: Reports:: Aneurysm, Anxiety, Cancer (cervical cancer), Cardiomyopathy, Congestive Heart Failure, Chronic Obstructive Pulmonary Disease (COPD), Deep Vein Thrombosis, Hyperlipidemia, Hypertension, Internal Pacemaker (defibrillator only), MRSA, Palpitations, Pulmonary Embolism Denies:: Diabetes Mellitus Type 1, Diabetes Mellitus Type 2, Seizures *Have you ever received a pneumonia vaccine?: Yes *Have you received a flu vaccine this season?: No (cant take had allergic reaction to it) Other Medical History: Reports: Hypothyroidism, Thyroid Disease. Denies: Blood Transfusion Reaction Anesthesia experience/problems:: None Laterality Cases: Left: Lumpectomy, Total Knee Replacement Other Surgeries: Yes: Cardiac Catheterization, Cholecystectomy, Hysterectomy-Total, Pacemaker (defibrillator only) Amputation: No Fractures: Yes (left leg/ankle pins and rods) - *Social History Last grade of school completed: 11th or 12th Smoking Status: Current every day smoker Tobacco Type: cigarettes # Packs/Day (cigarettes): 0 Alcohol Intake: current Alcohol Intake Frequency:: holidays/special occasions only Substance Use Type: marijuana Last Used Substance: days (ago) *Occupational Status:: disabled Housing: house Household Members: friend(s) *Travel in the last 8 weeks: None - Psychiatric History Pschychiatric History:: Reports:: Anxiety Family Hx:: No significant family history Review of Systems - Constitutional Reports body ache(s) - Eyes Denies blind spots, Denies blurry vision - *Cardiovascular Denies chest pain, Denies shortness of breath - *Respiratory Denies chest congestion, Denies shortness of breath - *Gastrointestinal Denies abdominal pain - *Genitourinary Denies difficulty urinating - *Musculoskeletal Reports joint pain, Reports joint swelling - *Neurologic Reports abnormal walking, Denies behavioral changes, Denies dizziness, Denies tingling/numbness/burning sensations, Denies radiating pain - Psychiatric Reports anxiety Meds Home Medications Medication Instructions Recorded Confirmed Type cyclosporine 0.05 % eye drops in a 1 drp OPHTHALMIC Q12H 10/29/20 01/16/22 History dropperette ondansetron HCl 4 mg tablet 4 mg PO TID PRN #30 tab 10/31/21 01/16/22 Rx Atorvastatin Calcium [Lipitor 40mg 40 mg PO HS 12/29/21 01/16/22 History Tab] Famotidine [Acid Carrot Tier] 20 mg PO BID 12/29/21 01/16/22 History Fluticasone Propionate 1 spray NS BID 12/29/21 01/16/22 History Gabapentin 600 mg PO TID 12/29/21 01/16/22 History Levocetirizine Dihydrochloride 5 mg PO DAILY 12/29/21 01/16/22 History Levothyroxine Sodium 200 mcg PO DAILYDM 12/29/21 01/16/22 History [Levothyroxine 200mcg (0.2mg) Tab] Mesalamine 1,600 mg PO TID 12/29/21 01/16/22 History Metoprolol Succinate [Metoprolol 150 mg PO DAILY 12/29/21 01/16/22 History Succinate 100mg Tablet*] Nitroglycerin See Rx Instructions .ROUTE .COMPLEX 12/29/21 01/16/22 History Oxybutynin Chloride 5 mg PO BID 12/29/21 01/16/22 History Rivaroxaban [Xarelto 20mg Tablet*] 20 mg PO QPMWITHMEAL 12/29/21 01/16/22 History Sacubitril/Valsartan [Entresto 49 1 tab PO BID 12/29/21 01/16/22 History
[2022-01-16 11:15] LABS: POC Glucose,Bedside 124 (70-110)
--- NOTE | 2022-01-16 14:19 | PC.NURSE ---
PT IS OFF THE FLOOR AT THIS TIME FOR SURGERY. PT HAS BEEN MEDICATED PER MAR FOR DISCOMFORT. PT HAS SWELLING/DRAINAGE NOTED TO THE LEFT KNEE. KNEE VERY WARM TO TOUCH. ICE PACK IN PLACE TO HELP WITH COMFORT. PT HAS BEEN GETTING UP TO THE BSC WITH 1 ASSIST. PT STATED HER PAIN IS MUCH WORSE WITH MOVEMENT. ASSISTED PT WITH REPOSITIONING AND ELEVATION TO HELP COMFORT. LUNG SOUNDS CLEAR. ABDOMEN SOFT/OBESE WITH HYPOACTIVE BOWEL SOUNDS. BP HAS BEEN LOW T/O THE SHIFT. WILL CONTINUE TO MONITOR.
--- NOTE | 2022-01-16 15:07 | PC.NURSE ---
patient is down stairs for procedure during afternoon rounds. did speak with patient family and they requested some ointment for the bumps on her face. they stated they normally used neosporin. notified of request by augustin bell
--- NOTE | 2022-01-16 16:41 | XR_ITS ---
PROCEDURE INFORMATION: Exam: XR Left Knee Exam date and time: 01/16/2022 5:37 PM Age: 51 years old Clinical indication: Pain; Knee; Left; Prior surgery; Surgery date: Post-operative (0-2 days); Additional info: order TECHNIQUE: Imaging protocol: Radiologic exam of the Left knee. Views: 3 views. COMPARISON: CT KNEE LT W CON 01/16/2022 12:57 AM FINDINGS: Tubes, catheters and devices: Lateral soft tissue drain in place with overlying tubing and bulb noted. Bones/joints: Left knee arthroplasty hardware without gross complication. No fractures. Soft tissues: Postoperative soft tissue swelling and skin michael anteriorly. Other findings: Normal alignment. IMPRESSION: Left knee arthroplasty without gross complication.
--- NOTE | 2022-01-16 17:34 | P.OP_ITS ---
Date of procedure: 01/16/22 Pre-op Diagnosis:: left knee surgical site infection Post-op Diagnosis:: left knee prosthetic joint infection Procedure performed:: 96497: revision left knee polyethylene liner [id number]: left knee arthrotomy, debridement, irrigation Surgeon:: Darshan Lopez JR, MD BICYCLE TECHNICIAN:: Robles Singh Anesthesia: GETA Estimated blood loss (mL): 50 Clinical Note:: 51-year-old female with left total knee arthroplasty surgical site infection. She had significantly elevated inflammatory markers, purulent appearing drainage. I had a discussion with her regarding further management, recommended debridement irrigation possible poly exchange. She is amenable with the plan. We discussed the risk and benefits of surgery. Risks included but were not limited to pain, bleeding, infection, damage to adjacent structures, need for further surgery, wound healing complications, loss of limb, . Patient expressed verbal consent and written consent was obtained for the above procedure. Operative findings:: Appearing fluid within the joint. Operative note:: Patient was identified in preoperative holding. Operative site was marked in indelible ink. History, physical, consent were reviewed and updated. Patient was surrendered to the anesthesia team, taken to the operative suite, placed supine on a well-padded operative table. Ipsilateral hip bump was placed as was a nonsterile thigh tourniquet. Anesthesia was induced. The operative extremity was prepped and draped in the usual sterile fashion. The operative team donned sterile gowns and gloves and a timeout was called. All in attendance agreed regarding the patient's identity, procedure, operative site. Weight-based dose of antibiotics was given prior to incision. The operative extremity, inflated the tourniquet to 300 mmHg I opened her anterior midline incision, noted purulent appearing fluid swab specimens which are sent for culture. I evacuated hematoma, purulent appearing fluid, palpated the knee joint and noted more turbid appearing infected looking fluid oozing from the joint. As such, I opened her previous medial parapatellar arthrotomy. Removed her polyethylene tibial component. I performed a thorough synovectomy deep tissue specimen for culture., debrided infected appearing subcutaneous tissue. I copiously irrigated the wound with saline followed by Irrisept followed by once again. Replaced the polyethylene liner, placed a drain in the knee joint exiting superior laterally. I closed the knee joint with running 0 PDS suture. I then placed vancomycin powder in the subcutaneous tissue, placed a second drain exiting superior laterally, closed the subcutaneous tissue with 2-0 PDS followed by 2-0 nylon on the skin. I placed an incisional wound VAC which was noted to have good seal. Wounds were closed in anatomic layers. Sterile dressings applied. Counts were correct x2. There were no apparent complications. I was present and scrubbed for the entire case. Tourniquet time (min): 88 Condition: stable Disposition: PACU Specimens:: Superficial and deep swab specimens as well as deep tissue specimen Complications:: None apparent
--- NOTE | 2022-01-16 17:35 | HMH.ANESI ---
[facility] Anesthesia Record Part I Intake, IV Amount: 250 Estimated blood loss (mL): 50 Urine output (mL): 0 Blood Pressure: 102/67 SaO2: 96 Pulse Rate: 129 Respiratory Rate: 22 Temperature: 97 F Patient is:: Awake Stable to PACU at:: 17:28
--- NOTE | 2022-01-16 18:23 | SUR.PHASEI ---
[id number]- detailed report called to arabella pritchett on [facility] floor 1801- pt left in care of arabella ruiz in pt room in stable condition
[2022-01-17] VITALS (7 sets, daily range): BP systolic 107–133; BP diastolic 61–79; PULSE 79–100; RESP 17–20; TEMP 36.6–36.9; O2SAT 87–99
--- NOTE | 2022-01-17 04:35 | PC.NURSE ---
Addendum entered by Dina Kaufman, AURY 01/17/22 04:40: Pt wound vac started alarming,leak detected, reinforced dressing, wound vac resumed, no other issues noted. Original Note: Pt is alert and oriented x4. Pt is using purewick. Pt has required pain medication around the clock. Avery wrap, abd, 4x4 dressing and TANIA drain noted to left knee,CDI, wound vac with suction noted. Pt has no complaints other than knee pain. Pt treated per mar, prn and scheduled meds.
--- NOTE | 2022-01-17 05:55 | PC.NURSE ---
Notified by West in lab of positive prelim blood ca with mrsa. Patient name, and results repeated back and verified. Dr. Benitez made aware. Patient is currently on invanz and Vanc. No new orders at this time.
--- NOTE | 2022-01-17 07:24 | P.PN_ITS ---
Subjective Date: 01/17/22 Time: 07:24 Interval history: Pain present but improved from preop. Blood cultures growing MRSA. PN: Obj Ex Vital signs: Temp Pulse Resp BP Pulse Ox 98.4 F 100 H 20 133/79 98 01/17/22 04:00 01/17/22 04:00 01/17/22 04:00 01/17/22 04:00 01/17/22 04:00 - Constitutional mild distress - Routine HEENT Exam Head: Present: normocephalic, atraumatic - Routine Respiratory Exam Absent: accessory muscle use, respiratory distress - Routine Cardiovascular Exam Present: RRR - Routine Abdominal Exam Present: soft. Absent: distended - Detailed Lower Extremity Exam Knee: Left normal inspection (Palpable dorsalis pedis/posterior tibial pulse. Sensation intact to light touch deep peroneal, superficial peroneal, tibial, sural, saphenous nerve distribution.5/5 motor function intact to extensor hallicus longus, flexor hallicus longus, tibialis anterior, gastroc/soleus, posterior tibialis, foot eversion.), Left wound (VAC with 100 mL output. Drain from subcutaneous layer incorporated into VAC sponge. ) Progress Note: A&P (1) Severe sepsis Status: Acute (2) Post-operative pain Status: Acute (3) Knee pain Status: Acute (4) Swelling of left knee joint Status: Acute (5) Postoperative infection of knee Status: Acute (6) Total knee replacement status Status: Acute (7) Obesity Status: Acute (8) CHF (congestive heart failure) Status: Acute Assessment and Plan for All Diagnoses:: 51-year-old female with multiple medical comorbidities status post left total knee arthroplasty earlier this month with prosthetic joint infection, distal wound dehiscence, MRSA bacteremia status post debridement, irrigation, knee arthrotomy, synovectomy, polyethylene exchange January 16, 2022. Plan to keep wound VAC in place at least 5 days. The subcutaneous drain is incorporated into the wound vacuum-assisted closure device. If the wound vacuum-assisted closure device loses seal, I need to be present to change it so that the drain is not inadvertently removed. Anticipate need for PICC line, IV antibiotics to cover MRSA. Would anticipate she would benefit from outpatient infectious disease evaluation by Tai Hogue MD in [place]. Weightbearing as tolerated. PT/OT. Will follow.
--- NOTE | 2022-01-17 08:39 | PC.NURSE ---
per discussion with Dr. Lopez, SURGEON is to REMOVE/REPLACE Wound Vac only if unsuccessful with reinforcing. There is a TANIA drain in place as well as a Secondary drain that is stapled to the wound vac foam for drainage to be suctioned out through Wound Vac. Nursing staff main priority to keep wound vac functioning through reinforcing wound vac sponge to keep suction going. If unsuccessful in keeping wound vac suction Call on-call Surgeon to have replaced by Surgeon only to avoid secondary drain tube being pulled out. (See Dr. Lopez note) Per v.o. from Dr. Lopez patient to have PT/OT Eval on Wednesday to allow knee time to rest over the weekend.
--- NOTE | 2022-01-17 09:10 | PC.NURSE ---
Notified Physical Therapist oncall about PT eval order placed on patient.
--- NOTE | 2022-01-17 09:43 | HMH.ACPN2 ---
Internal Medicine - PN: Subj *Date: 01/17/22 *Time: 10:30 Interval history: Patient with significant complaint of pain today. Complaining of pain in her back, hip, knee. Denies any fever, shortness of breath, chest pain, nausea or vomiting. Difficulty in moving in bed due to elevation of left leg. Neurovascularly intact distal to knee wrapped in left foot. Hemodynamically stable on vitals. Discussed plan, pain control, progress on rounds with patient and family at bedside. Exam Vital signs and Labs for Last 24 Hours: Temp Pulse Resp BP Pulse Ox 98.3 F 100 H 17 107/61 L 97 01/17/22 08:00 01/17/22 08:00 01/17/22 08:00 01/17/22 08:00 01/17/22 08:00 Laboratory Results - last 24 hr 01/16/22 06:22: POC Glucose 124 H I & O for Last 24 hours: Intake & Output 01/14/22 01/15/22 01/16/22 01/17/22 23:59 23:59 23:59 23:59 Intake Total 2000 / 2000 1064 / 1064 Output Total 500 / 500 105 / 105 Balance 1501 / 1501 959 / 959 Weight 127.006 kg 125 kg Microbiology Reports for the Last 24 Hours: Microbiology 01/16/22 16:00 Knee,Left - Drainage Gram Stain - Final 01/16/22 16:00 Knee,Left - Drainage Wound Culture - Preliminary 01/16/22 08:25 Blood Blood Culture - Preliminary 01/16/22 16:00 Knee,Left - Drainage Gram Stain - Final Narrative: - Constitutional mild distress, morbidly obese - *Routine HEENT Exam Head: Present: normocephalic Eye: Present: EOMI ENT: Present: mucous membranes moist - *Routine Neck Exam Present: trachea midline. Absent: tracheal deviation - *Routine Respiratory Exam Present: CTA bilaterally. Absent: accessory muscle use - *Routine Cardiovascular Exam Present: RRR - *Routine Abdominal Exam Present: soft, normoactive bowel sounds. Absent: tenderness, firm - *Routine Extremities Exam Present: edema, pulses intact, tenderness. Absent: cyanosis, full ROM - *Routine Skin Exam Present: wounds; Left knee in post-surgical wrap with wound vac in place. draining scant bloody discharge. Numerous tattoos. - *Routine Neurological Exam Present: alert, oriented X3. Absent: altered mental status - Routine Psychiatric Exam Present: tearful, anxious, normal thought process Assessment and Plan (1) Severe sepsis Status: Acute Category: Medical Code(s): A41.9 - Sepsis, unspecified organism; R65.20 - Severe sepsis without septic shock (2) MRSA bacteremia Status: Acute Category: Medical Code(s): R78.81 - Bacteremia; B95.62 - Methicillin resistant Staphylococcus aureus infection as the cause of diseases classified elsewhere (3) Post-operative pain Status: Acute Category: Medical Code(s): G89.18 - Other acute postprocedural pain (4) Knee pain Status: Acute Qualifiers: Chronicity: acute Laterality: left Qualified Code(s): M25.562 - Pain in left knee Category: Medical Code(s): M25.569 - Pain in unspecified knee (5) Swelling of left knee joint Status: Acute Category: Medical Code(s): M25.462 - Effusion, left knee (6) Postoperative infection of knee Status: Acute Category: Medical Code(s): T81.49XA - Infection following a procedure, other surgical site, initial encounter; M00.9 - Pyogenic arthritis, unspecified (7) Total knee replacement status Status: Acute Category: Surgical Code(s): Z96.659 - Presence of unspecified artificial knee joint (8) Obesity Status: Acute Qualifiers: Obesity type: due to excess calories Obesity classification: adult class 3 (BMI >= 40) Serious obesity comorbidity presence: with serious comorbidity Body mass index: BMI 40.0-44.9 Qualified Code(s): E66.01 - Morbid (severe) obesity due to excess calories; Z68.41 - Body mass index [BMI] 40.0-44.9, adult Category: Medical Code(s): E66.9 - Obesity, unspecified (9) CHF (congestive heart failure) Status: Acute Category: Medical Code(s): I50.9 - Heart failure, unspecified - Assessment a
[2022-01-17 15:15] LABS: Basophils % 0.3 % (0.1-2.0); Eosinophils # 0.4 K/mm3 (0.0-0.4); Eosinophils % 2.9 % (0.1-12.0); Hematocrit 29.3 % (37.0-47.0); Hemoglobin 10.4 g/dL (12.2-16.2); Lymphocytes # 2.5 K/mm3 (0.7-4.5); Lymphocytes % 20.1 % (10-50); Mean Corpuscular HGB Conc 35.6 g/dL (31.8-35.4); Mean Corpuscular Hemoglobin 32.1 pg (27.0-31.2); Mean Corpuscular Volume 90.3 fl (81-99); Mean Platelet Volume 9.1 fl (7.4-10.4); Monocytes # 0.8 K/mm3 (0.1-1.0); Monocytes % 6.4 % (1.7-9.3); Neutrophils # 8.7 K/mm3 (1.8-7.8); Neutrophils % 70.2 % (37.0-80.0); Platelet Count 320 K/mm3 (142-424); Red Blood Count 3.25 M/mm3 (4.20-5.40); Red Cell Distribution Width 13.8 % (11.5-17.5); White Blood Count 12.3 K/mm3 (4.8-10.8)
--- NOTE | 2022-01-17 16:00 | PC.NURSE ---
Patient c/o pain in left leg 03/30 administered pain medication per AUG with very little relief, ice applied and extremity moved to provide pain relief. Spoke with provider during rounds and adjustments to pain regimen was made. Administered increased dose of schedule pain medication and patient states still hurts but more relief. Nausea has decreased with new pain regimen. VSS, urine output WNL, yellow and clear. Patient not as weepy with new pain regimen but still has anxiety in regards recovery and discharge. Patient continued to have break through pain; administered Dilaudid per AUG. Patient able to eat small amounts at meal time with increase in oral fluid intake during meals. Patient shows no s/s of acute distress, call light within reach, bed at lowest level for safety; will continue to monitor.
[2022-01-17 16:16] LABS: Anion Gap 13.7 mEq/L (5-15); Blood Urea Nitrogen 21 mg/dl (7-17); Calcium 9.2 mg/dl (8.4-10.2); Carbon Dioxide 20 mmol/L (22.0-30.0); Chloride 108 mmol/L (98-107); Creatinine Clearance Estimated 190 mL/min (50-200); Estimated Glomerular Filt Rate 89 ml/min (>60); GFR (African American) 107 ML/MIN (>60); Glucose 116 mg/dl (74-100); Potassium 4.7 mmoL/L (3.5-5.1); Sodium 137 mmol/L (136-145)
[2022-01-17 16:21] LABS: C-Reactive Protein 262.2 mg/L (0-4)
[2022-01-17 21:32] LABS: Vancomycin,Trough 10.2 ug/mL (5.0-10.0)
[2022-01-18 01:32] LABS: Vancomycin,Peak 33.1 ug/ml (11-39)
[2022-01-18 03:55] VITALS: BP 110/66; PULSE 94; RESP 20; TEMP 36.7; O2SAT 98
[2022-01-18 04:07] VITALS: BMI 38.8
--- NOTE | 2022-01-18 04:57 | PC.NURSE ---
Pt is alert and oriented x4, pt has required pain management around the clock, treated per mar. Purewick in place and draining. Avery wrap, abd, 4x4 dressing noted, CDI. TANIA drain in place and draining. Wound vac suctioning with no issues. Pt has had no new complaints. Pt has rested more through the night.
[2022-01-18 07:09] LABS: Alanine Aminotransferase 51 U/L (12-78); Albumin Level 3.1 g/dl (3.5-5.0); Albumin/Globulin Ratio 1.1 (1.1-1.8); Alkaline Phosphatase 225 U/L (38-126); Anion Gap 7.9 mEq/L (5-15); Aspartate Amino Transferase 40 U/L (14-36); Basophils # 0.1 K/mm3 (0-0.2); Basophils % 0.8 % (0.1-2.0); Blood Urea Nitrogen 15 mg/dl (7-17); Calcium 9.1 mg/dl (8.4-10.2); Carbon Dioxide 27 mmol/L (22.0-30.0); Chloride 105 mmol/L (98-107); Creatinine Clearance Estimated 191 mL/min (50-200); Eosinophils # 0.5 K/mm3 (0.0-0.4); Eosinophils % 6.4 % (0.1-12.0); Estimated Glomerular Filt Rate 89 ml/min (>60); GFR (African American) 107 ML/MIN (>60); Globulin 2.7 g/dL (1.3-3.2); Glucose 123 mg/dl (74-100); Hematocrit 29.9 % (37.0-47.0); Hemoglobin 9.8 g/dL (12.2-16.2); Lymphocytes # 2.5 K/mm3 (0.7-4.5); Lymphocytes % 31.3 % (10-50); Magnesium 1.7 mg/dl (1.6-2.3); Mean Corpuscular HGB Conc 32.6 g/dL (31.8-35.4); Mean Corpuscular Hemoglobin 31.1 pg (27.0-31.2); Mean Corpuscular Volume 95.4 fl (81-99); Mean Platelet Volume 8.6 fl (7.4-10.4); Monocytes # 0.4 K/mm3 (0.1-1.0); Neutrophils # 4.5 K/mm3 (1.8-7.8); Neutrophils % 56.5 % (37.0-80.0); Platelet Count 338 K/mm3 (142-424); Potassium 3.9 mmoL/L (3.5-5.1); Red Blood Count 3.13 M/mm3 (4.20-5.40); Red Cell Distribution Width 14.4 % (11.5-17.5); Sodium 136 mmol/L (136-145); Total Protein,Serum 5.8 g/dl (6.3-8.2)
[2022-01-18 07:10] LABS: Bilirubin,Total < 0.1 mg/dl (0.2-1.3)
--- NOTE | 2022-01-18 07:34 | HMH.ORTHPN ---
Subjective Date: 01/18/22 Time: 07:35 PN: Obj Ex Vital signs: Temp Pulse Resp BP Pulse Ox 98.0 F 94 H 20 110/66 98 01/18/22 03:55 01/18/22 03:55 01/18/22 03:55 01/18/22 03:55 01/18/22 03:55 - Constitutional mild distress - Routine HEENT Exam Head: Present: normocephalic, atraumatic Eye: Present: EOMI - Routine Neck Exam Present: supple - Routine Respiratory Exam Absent: accessory muscle use, respiratory distress - Routine Cardiovascular Exam Present: RRR - Routine Abdominal Exam Present: soft. Absent: distended - Routine Extremities Exam Absent: Pepito's sign - Detailed Lower Extremity Exam Knee: Left normal inspection (Palpable dorsalis pedis/posterior tibial pulse. Sensation intact to light touch deep peroneal, superficial peroneal, tibial, sural, saphenous nerve distribution. 5/5 motor function intact to extensor hallicus longus, flexor hallicus longus, tibialis anterior, gastroc/soleus, posterior tibialis, foot eversion.), Left wound (Wrap removed. VAC with good seal, serosanguinous output.), Left erythema (none) Progress Note: A&P (1) Severe sepsis Status: Acute (2) MRSA bacteremia Status: Acute (3) Post-operative pain Status: Acute (4) Knee pain Status: Acute (5) Swelling of left knee joint Status: Acute (6) Postoperative infection of knee Status: Acute (7) Total knee replacement status Status: Acute (8) Obesity Status: Acute (9) CHF (congestive heart failure) Status: Acute Assessment and Plan for All Diagnoses:: 51-year-old female with multiple medical comorbidities status post left total knee arthroplasty earlier this month with prosthetic joint infection, distal wound dehiscence, MRSA bacteremia status post debridement, irrigation, knee arthrotomy, synovectomy, polyethylene exchange January 16, 2022. Plan to keep wound VAC in place at least 5 days. The subcutaneous drain is incorporated into the wound vacuum-assisted closure device. If the wound vacuum-assisted closure device loses seal, I need to be present to change it so that the drain is not inadvertently removed. Anticipate need for PICC line, IV antibiotics to cover MRSA. Follow wound cultures, currently negative. Would anticipate she would benefit from outpatient infectious disease evaluation by Tai Hogue MD in [place]. Weightbearing as tolerated. PT/OT. Will follow.
[2022-01-18 08:00] VITALS: BP 121/69; PULSE 103; RESP 18; TEMP 36.9; O2SAT 99
--- NOTE | 2022-01-18 10:01 | HMH.ACPN2 ---
Internal Medicine - PN: Subj *Date: 01/18/22 *Time: 10:01 Interval history: Patient relays an uneventful night, is having some pain this morning. Orthopedic note is reviewed. Details of the drain were well delineated. Another set of blood cultures was ordered, pending. Previous blood cultures gram-positive cocci podiatry assistant with MRSA. Left knee drainage also grew out gram-positive cocci. He is on vancomycin. CRP is trending downward. Patient is tearful morning. Exam Vital signs and Labs for Last 24 Hours: Temp Pulse Resp BP Pulse Ox 98.4 F 103 H 18 121/69 99 01/18/22 08:00 01/18/22 08:00 01/18/22 08:00 01/18/22 08:00 01/18/22 08:00 Laboratory Results - last 24 hr 01/17/22 15:00: WBC 12.3 H D, RBC 3.25 L, Hgb 10.4 L, Hct 29.3 L, MCV 90.3, MCH 32.1 H, MCHC 35.6 H, RDW 13.8, Plt Count 320, MPV 9.1, Neut % (Auto) 70.2, Lymph % (Auto) 20.1, [place] % (Auto) 6.4, Eos % (Auto) 2.9, Baso % (Auto) 0.3, Neut # (Auto) 8.7 H, Lymph # (Auto) 2.5, [place] # (Auto) 0.8, Eos # (Auto) 0.4, Baso # (Auto) 0.0 01/17/22 15:00: Sodium 137, Potassium 4.7, Chloride 108 H, Carbon Dioxide 20 L, Anion Gap 13.7, BUN 21 H D, Creatinine 0.70 D, Estimated Creat Clear 190, Estimated GFR 89, Est GFR ( Amer) 107 D, Glucose 116 H, Calcium 9.2, C-Reactive Protein 262.2 H 01/17/22 20:45: Vancomycin Trough 10.2 H 01/18/22 01:00: Vancomycin Peak 33.1 01/18/22 06:48: WBC 8.0 D, RBC 3.13 L, Hgb 9.8 L, Hct 29.9 L, MCV 95.4, MCH 31.1, MCHC 32.6, RDW 14.4, Plt Count 338, MPV 8.6, Neut % (Auto) 56.5, Lymph % (Auto) 31.3, [place] % (Auto) 5.0, Eos % (Auto) 6.4, Baso % (Auto) 0.8, Neut # (Auto) 4.5, Lymph # (Auto) 2.5, [place] # (Auto) 0.4, Eos # (Auto) 0.5 H, Baso # (Auto) 0.1 01/18/22 06:48: Sodium 136, Potassium 3.9, Chloride 105, Carbon Dioxide 27, Anion Gap 7.9, BUN 15 D, Creatinine 0.70, Estimated Creat Clear 191, Estimated GFR 89, Est GFR ( Amer) 107, Glucose 123 H, Calcium 9.1, Magnesium 1.7, Total Bilirubin < 0.1 L, AST 40 H D, ALT 51 D, Alkaline Phosphatase 225 H, Total Protein 5.8 L, Albumin 3.1 L, Globulin 2.7, Albumin/Globulin Ratio 1.1 I & O for Last 24 hours: Intake & Output 01/15/22 01/16/22 01/17/22 01/18/22 23:59 23:59 23:59 23:59 Intake Total 2000 2144 / 2144 736 / 736 Output Total 500 / 500 1005 / 1005 325 / 325 Balance 1501 / 1501 1139 / 1139 411 / 411 Weight 280 lb 275 lb 9.245 oz 277 lb 4 oz Microbiology Reports for the Last 24 Hours: Microbiology 01/16/22 08:25 Blood Blood Culture - Preliminary Gram Positive Cocci 01/16/22 08:25 Blood Blood Culture - Preliminary Gram Positive Cocci 01/16/22 16:00 Knee,Left - Drainage Gram Stain - Final 01/16/22 16:00 Knee,Left - Drainage Wound Culture - Preliminary NO GROWTH AFTER 24 HOURS 01/16/22 16:00 Knee,Left - Drainage Abscess Culture - Preliminary Gram Positive Cocci 01/16/22 16:00 Knee,Left - Drainage Gram Stain - Final 01/16/22 16:00 Knee,Left - Drainage Wound Culture - Preliminary Gram Positive Cocci 01/16/22 16:00 Knee,Left - Wound Surgical Biopsy Culture - Preliminary NO GROWTH AFTER 24 HOURS - Constitutional chronically ill appearing - *Routine HEENT Exam Head: Present: normocephalic Eye: Present: EOMI, PERRL ENT: Present: mucous membranes moist - *Routine Neck Exam Present: supple. Absent: lymphadenopathy - *Routine Respiratory Exam Present: CTA bilaterally - *Routine Cardiovascular Exam Present: RRR - *Routine Abdominal Exam Present: soft, normoactive bowel sounds. Absent: tenderness - *Routine Extremities Exam Absent: cyanosis, extremity cold to touch - *Routine Skin Exam Present: warm. Absent: rash - *Routine Neurological Exam Present: alert, oriented X3 Assessment and Plan (1) Severe sepsis Status: Acute Category: Medica
--- NOTE | 2022-01-18 10:08 | XR_ITS ---
PROCEDURE INFORMATION: Exam: XR Chest Exam date and time: 01/18/2022 10:20 AM Age: 51 years old Clinical indication: Other: Congested heart failure and MRSA; Additional info: Chf TECHNIQUE: Imaging protocol: Radiologic exam of the chest. Views: 1 view. COMPARISON: CR XR CHEST 2V 12/23/2021 12:59 PM FINDINGS: Tubes, catheters and devices: AICD. Lungs: Mild interstitial prominence, without acute airspace disease. Pleural spaces: Incomplete visualization of the left costophrenic angle. No significant pleural effusion. Heart/Mediastinum: Borderline cardiomegaly. Diaphragm: Asymmetric elevation of right hemidiaphragm. Bones/joints: Unremarkable. IMPRESSION: Borderline cardiomegaly and mild interstitial prominence.
--- NOTE | 2022-01-18 10:16 | PC.NURSE ---
Cardiology consult can be notified in AM per Dr. Addison
[2022-01-18 11:44] VITALS: BP 106/64; PULSE 82; RESP 18; TEMP 36.6; O2SAT 98
[2022-01-18 16:00] VITALS: BP 136/72; PULSE 101; RESP 18; TEMP 37; O2SAT 98
--- NOTE | 2022-01-18 18:45 | PC.NURSE ---
Pt a/o x 4. RR even and unlabored. VSS. Have encouraged pt to turn and reposition to avoid any pressure areas, verbalizes understanding. NAD. TANIA drain and wound vac in place to L Leg, have striped and emptied TANIA, approx 45 cc output. Meds per mar and pain meds per mar. Plus 2 Pulses noted to BLE. CB in reach.
[2022-01-18 20:00] VITALS: BP 151/101; PULSE 103; RESP 18; TEMP 37.1; O2SAT 99
[2022-01-18 23:59] VITALS: BP 140/65; PULSE 107; RESP 16; TEMP 37; O2SAT 97
[2022-01-19 04:00] VITALS: BP 130/73; PULSE 101; RESP 16; TEMP 36.9; O2SAT 96
[2022-01-19 04:30] VITALS: BMI 41.1
--- NOTE | 2022-01-19 05:37 | PC.NURSE ---
Pt alert and oriented x 4. Pt has rested in intervals this shift. Pt is still requiring around the clock pain management. Medicating per MAR. Pt has been tearful at times and has voiced that she is worried about her family and feels alone. She also states she is worried that she is not getting better. After talking with pt for a while pt states she feels some better. Pt has TANIA drain and wound vac present to left leg. Dressing c/d/i. 30 cc emptied from TANIA drain. Wound vac working properly at this time. +2 Pulses present to bilateral lower extremities. Encouraged pt to reposition ever so often - pt verbalized understanding. IV infusing per order. No other needs or complaints at this time. Call light in reach.
--- NOTE | 2022-01-19 07:17 | P.PN_ITS ---
[facility] Anesthesia Record Part II Discharge Time: 17:58 Destination: Medical Surgical Department PACU nurse assessment reviewed?: Yes Patient Condition:: Good Anesthesia Complications:: None Swallowing reflex intact?: Yes Cyanosis?: No Blood Pressure: 121/78 Pulse Rate: 115 Temperature: 97.2 F Mental Status: Alert & Oriented Pain level:: 10 Nausea and/or vomitting:: None Intake, IV Amount: 0
[2022-01-19 07:21] VITALS: BP 121/78; PULSE 115; TEMP 36.2
[2022-01-19 08:00] VITALS: BP 104/60; PULSE 90; RESP 17; TEMP 37; O2SAT 98
--- NOTE | 2022-01-19 09:00 | HMH.ACPN2 ---
Internal Medicine - PN: Subj *Date: 01/19/22 *Time: 09:00 Exam Vital signs and Labs for Last 24 Hours: Temp Pulse Resp BP Pulse Ox 98.6 F 90 17 104/60 L 98 01/19/22 08:00 01/19/22 08:00 01/19/22 08:00 01/19/22 08:00 01/19/22 08:00 I & O for Last 24 hours: Intake & Output 01/16/22 01/17/22 01/18/22 01/19/22 23:59 23:59 23:59 23:59 Intake Total 2000 2144 / 2144 2271 / 2271 652 / 652 Output Total 500 / 500 1005 / 1005 970 / 1170 1130 / 1130 Balance 1501 / 1501 1139 / 1139 1301 / 1101 -478 / -478 Weight 125 kg 125.758 kg 133.356 kg Microbiology Reports for the Last 24 Hours: Microbiology 01/16/22 16:00 Knee,Left - Wound Gram Stain - Final 01/16/22 16:00 Knee,Left - Wound Surgical Biopsy Culture - Preliminary Gram Positive Cocci 01/16/22 16:00 Knee,Left - Drainage Gram Stain - Final 01/16/22 16:00 Knee,Left - Drainage Abscess Culture - Final Staphylococcus aureus 01/16/22 08:25 Blood Blood Culture - Final Staphylococcus aureus 01/16/22 16:00 Knee,Left - Drainage Gram Stain - Final 01/16/22 16:00 Knee,Left - Drainage Wound Culture - Final Staphylococcus aureus 01/16/22 08:25 Blood Blood Culture - Final Staphylococcus aureus Assessment and Plan (1) Severe sepsis Status: Acute Category: Medical Code(s): A41.9 - Sepsis, unspecified organism; R65.20 - Severe sepsis without septic shock (2) MRSA bacteremia Status: Acute Category: Medical Code(s): R78.81 - Bacteremia; B95.62 - Methicillin resistant Staphylococcus aureus infection as the cause of diseases classified elsewhere (3) Post-operative pain Status: Acute Category: Medical Code(s): G89.18 - Other acute postprocedural pain (4) Knee pain Status: Acute Qualifiers: Chronicity: acute Laterality: left Qualified Code(s): M25.562 - Pain in left knee Category: Medical Code(s): M25.569 - Pain in unspecified knee (5) Swelling of left knee joint Status: Acute Category: Medical Code(s): M25.462 - Effusion, left knee (6) Postoperative infection of knee Status: Acute Category: Medical Code(s): T81.49XA - Infection following a procedure, other surgical site, initial encounter; M00.9 - Pyogenic arthritis, unspecified (7) Total knee replacement status Status: Acute Category: Surgical Code(s): Z96.659 - Presence of unspecified artificial knee joint (8) Obesity Status: Acute Qualifiers: Obesity type: due to excess calories Obesity classification: adult class 3 (BMI >= 40) Serious obesity comorbidity presence: with serious comorbidity Body mass index: BMI 40.0-44.9 Qualified Code(s): E66.01 - Morbid (severe) obesity due to excess calories; Z68.41 - Body mass index [BMI] 40.0-44.9, adult Category: Medical Code(s): E66.9 - Obesity, unspecified (9) CHF (congestive heart failure) Status: Acute Category: Medical Code(s): I50.9 - Heart failure, unspecified The patient's infection will respond to the chosen ABx?: Yes (REPEAT BLOOD CULTURE PENDING, PREVIOUS CULTURES MRSA, VANCO SUSCEPTIBLE) Is the patient receiving the right drug, dose, and route?: Yes Could a more targeted ABx be ordered?: No
--- NOTE | 2022-01-19 09:15 | HMH.ACPN2 ---
Internal Medicine - PN: Subj *Date: 01/19/22 *Time: 20:11 Interval history: Patient relays ongoing discomfort in the left knee. Weepy and tearful this morning. Discussed drain position with ortho. AICD present, non-ischemic cardiomyopathy. Cardiology notes reviewed Exam Vital signs and Labs for Last 24 Hours: Temp Pulse Resp BP Pulse Ox 98.6 F 90 17 104/60 L 98 01/19/22 08:00 01/19/22 08:00 01/19/22 08:00 01/19/22 08:00 01/19/22 08:00 I & O for Last 24 hours: Intake & Output 01/16/22 01/17/22 01/18/22 01/19/22 23:59 23:59 23:59 23:59 Intake Total 2000 / 2000 2144 / 2144 2271 / 2271 652 / 652 Output Total 500 / 500 1005 / 1005 970 / 1170 1130 / 1130 Balance 1501 / 1501 1139 / 1139 1301 / 1101 -478 / -478 Weight 275 lb 9.245 oz 277 lb 4 oz 294 lb Microbiology Reports for the Last 24 Hours: Microbiology 01/16/22 16:00 Knee,Left - Wound Gram Stain - Final 01/16/22 16:00 Knee,Left - Wound Surgical Biopsy Culture - Preliminary Gram Positive Cocci 01/16/22 16:00 Knee,Left - Drainage Gram Stain - Final 01/16/22 16:00 Knee,Left - Drainage Abscess Culture - Final Staphylococcus aureus 01/16/22 08:25 Blood Blood Culture - Final Staphylococcus aureus 01/16/22 16:00 Knee,Left - Drainage Gram Stain - Final 01/16/22 16:00 Knee,Left - Drainage Wound Culture - Final Staphylococcus aureus 01/16/22 08:25 Blood Blood Culture - Final Staphylococcus aureus - Constitutional morbidly obese - *Routine HEENT Exam Head: Present: normocephalic Eye: Present: EOMI, PERRL ENT: Present: mucous membranes moist - *Routine Neck Exam Present: supple. Absent: lymphadenopathy - *Routine Respiratory Exam Present: CTA bilaterally - *Routine Cardiovascular Exam Present: RRR - *Routine Abdominal Exam Present: soft, normoactive bowel sounds. Absent: tenderness - *Routine Extremities Exam Present: tenderness - *Routine Skin Exam Present: warm. Absent: rash - *Routine Neurological Exam Present: alert, oriented X3 Assessment and Plan (1) Severe sepsis Status: Acute Category: Medical Code(s): A41.9 - Sepsis, unspecified organism; R65.20 - Severe sepsis without septic shock (2) MRSA bacteremia Status: Acute Category: Medical Code(s): R78.81 - Bacteremia; B95.62 - Methicillin resistant Staphylococcus aureus infection as the cause of diseases classified elsewhere (3) Post-operative pain Status: Acute Category: Medical Code(s): G89.18 - Other acute postprocedural pain (4) Knee pain Status: Acute Qualifiers: Chronicity: acute Laterality: left Qualified Code(s): M25.562 - Pain in left knee Category: Medical Code(s): M25.569 - Pain in unspecified knee (5) Swelling of left knee joint Status: Acute Category: Medical Code(s): M25.462 - Effusion, left knee (6) Postoperative infection of knee Status: Acute Category: Medical Code(s): T81.49XA - Infection following a procedure, other surgical site, initial encounter; M00.9 - Pyogenic arthritis, unspecified (7) Total knee replacement status Status: Acute Category: Surgical Code(s): Z96.659 - Presence of unspecified artificial knee joint (8) Obesity Status: Acute Qualifiers: Obesity type: due to excess calories Obesity classification: adult class 3 (BMI >= 40) Serious obesity comorbidity presence: with serious comorbidity Body mass index: BMI 40.0-44.9 Qualified Code(s): E66.01 - Morbid (severe) obesity due to excess calories; Z68.41 - Body mass index [BMI] 40.0-44.9, adult Category: Medical Code(s): E66.9 - Obesity, unspecified (9) CHF (congestive heart failure) Status: Acute Category: Medical Code(s): I50.9 - Heart failure, unspecified - Assessment and plan all Dx Assessment and Plan for all problems
--- NOTE | 2022-01-19 09:37 | HMH.PTEV ---
Physical Therapy Evaluation Rehab PT IP Evaluation Start: 01/19/22 09:00 Freq: ONCE Status: Active Protocol: Document 01/19/22 09:32 BRODIE (Rec: 01/19/22 09:37 BRODIE [email or web address]) Subjective/History History History This is the initial IP PT evaluation for Edilia Vincent . Pt is a 51 y/o female admitted to [facility] thru the ED for L TKA infection. Pt had L TKA 12/30/21 and returned to ED twice w/ c/o drainage and pain. Subjective Subjective pt c/o severe pain in L knee w / [id number] Rehab PT IP Eval Objective Appearance Patient Behavior Anxious,Crying,Fearful Patient Orientation Place,Name,Birthday,Year Difficulty following instructions none Speech Pattern Appropriate Ambulation Patient Able to Ambulate No Balance Ability to Arise Unable Dynamic Sitting Balance Ability Fair Transfers Bed Transfer Ability Minimal x 2 (25% assist) Rehab PT IP prob,goals,plan Problems Date of Evaluation: 01/19/22 PT IP Problems Bed Mobility,Transfers,Gait, Balance,Self care,Safety Rehab Potential Rehab Potential Fair Equipment Needs Assistive Devices Rolling / Wheeled Walker Plan PT Intervention Plan Bed Mobility,Transfers,Gait, Balance,Self care,Safety, Therapeutic Exercise PT Plan Frequency BID Duration LOS Discharge Goals Bed Transfer Ability Minimal x 2 (25% assist) Sit to Stand Chair Transfer Ability Maximum x 1 (75% assist) Ambulation Assistive Device Rolling Walker Discharge Plan PT Discharge Plan Pt will benefit from skilled therapy while in [facility] to allow improvement in pain and function. Pt will continue to need skilled care after dc. Pt will benefit most from placement at [facility] or SNF for extended therapy and IV ABX G -code Required No Eval Complexity Eval Charge Codes 60176 - Moderate Complexity PHYSICIAN CERTIFICATION: I certify the specified therapy services for Edilia Vincent are required, authorized, and reviewed every 30 days.
--- NOTE | 2022-01-19 09:45 | HMH.ORTHPN ---
Subjective Date: 01/19/22 Time: 09:00 Principal diagnosis: Left knee prosthetic joint infection Interval history: Ms. Vincent is a 51-year-old female patient who underwent an uneventful revision left knee polyethylene liner exchange, left knee arthrotomy, debridement, and irrigation performed by Dr. Lopez on 01/16/2022. Today the patient is postop day #3. This morning she is lying comfortably in bed. She reports significant left knee pain but is otherwise feeling well; she is tearful this morning. No history of fevers, chills, rigors, or distal tingling/numbness. She reports that she has been working with physical therapy but has ambulated very little. She denies any other symptoms or concerns at this time. PN: Obj Ex Vital signs: Temp Pulse Resp BP Pulse Ox 98.6 F 90 17 104/60 L 98 01/19/22 08:00 01/19/22 08:00 01/19/22 08:00 01/19/22 08:00 01/19/22 08:00 - Constitutional no acute distress, cooperative - Routine HEENT Exam Head: Present: normocephalic, atraumatic Eye: Present: EOMI, PERRL ENT: Present: mucous membranes moist - Routine Neck Exam Present: supple, full ROM, trachea midline. Absent: JVD, lymphadenopathy - Routine Respiratory Exam Absent: accessory muscle use, respiratory distress Comments: Symmetric chest movement, able to speak in complete sentences - Routine Cardiovascular Exam Present: RRR Comments: Normal peripheral pulses - Routine Abdominal Exam Present: soft. Absent: tenderness - Routine Extremities Exam Comments: Upon examination of the left knee: Dressings present over the left knee are clean, dry, and intact. There is a surgical drain and wound VAC in place with minimal serosanguineous output. Attempted movements of the left knee are somewhat painful. Thigh and calf are soft and nontender; Homans' sign is negative. No clinical evidence of DVT noted. Posterior tibial pulses 1+; capillary refill is brisk. Sensation to light touch is grossly intact throughout. Patient is actively mobilizing the foot, ankle, and toes. - Routine Skin Exam Present: intact, warm, normal turgor. Absent: cyanosis, erythema, lesions, jaundice - Routine Neurological Exam Present: alert, oriented X3, CN II-XII intact, moving all extremities, normal tone, normal speech. Absent: sensory deficit, motor deficit, altered mental status - Routine Psychiatric Exam Present: normal affect, cooperative, anxious Progress Note: A&P (1) Severe sepsis Status: Acute (2) MRSA bacteremia Status: Acute (3) Post-operative pain Status: Acute (4) Knee pain Status: Acute (5) Swelling of left knee joint Status: Acute (6) Postoperative infection of knee Status: Acute (7) Total knee replacement status Status: Acute (8) Obesity Status: Acute (9) CHF (congestive heart failure) Status: Acute Assessment and Plan for All Diagnoses:: I have discussed the clinical findings and progress with the patient. Overall she is doing well from an orthopedic standpoint this morning. Plan to keep wound VAC in place for at least 5 days postoperatively; subcutaneous drain is incorporated into the wound VAC - if wound VAC seal is lost, Dr. Lopez would like to be present to change the dressing so that the drain is not inadvertently removed. Pending wound culture final results, plan for PICC line and IV antibiotics to cover MRSA. Patient was discussed with Dr. Tai Hogue, infectious disease specialist in [place], who recommends daptomycin 8-10 mg/kg. Recommend echocardiogram; cardiology consult pending. Continue PT/OT; patient may weight-bear as tolerated on the left lower extremity. Continue rest, ice, and as needed pain medication. Continue medical management as per primary team.
--- NOTE | 2022-01-19 11:01 | HMH.OTEV ---
OT Inpatient Evaluation Rehab OT IP Evaluation Start: 01/19/22 09:01 Freq: ONCE Status: Complete Protocol: Document 01/19/22 10:50 [facility] (Rec: 01/19/22 11:00 [facility] [id number]) Rehab OT IP Assessment Subjective History Pt oriented x 3 on arrival. Pt was admitted via ED on 01/15 pain and selling to left knee after knee replacement. Pt had L TKA 12/30/21 and returned to ED twice w/ c/o drainage and pain. Pt required a revision left knee polyethylene liner andleft knee arthrotomy, debridement, irrigation on 01/16/22. Prior to original surgery patient was independent with all ADLs and IADLs. Following her left Knee TKA on 12/30 pt returned home with assitance from boyfriend. The following information was copied from history and physical report: 51-year-old female patient presents to the [facility] emergency department with reports of fever, increasing left knee pain, swelling and drainage from surgical incision and progressively worsening over the last 3 days. She does have an elevated white blood cell count of 18.8, CRP 385, and ESR 136. Ortho was consulted and ordered CT of left knee which revealed suspicious for developing abscess and possible areas of bleeding. She did have a total knee replacement on 12/30 and was in the emergency department 4 days prior for drainage from incision site and Steri-Strips and bandage were placed over area. Subjective I am in so much pain. Pt complains of severe pain. Pt completed bed mobility and
--- NOTE | 2022-01-19 12:15 | HMH.CNCARD ---
History of Present Illness Consult date: 01/19/22 Requesting physician: Rajendra Addison Consult reason: congestive heart failure, known to you Chief complaint: left knee infection History of present illness: This is a 51-year-old white female who presented to [facility] with a fever, increasing left knee pain, swelling and draining from her surgical incision site that had progressively worsened for approximately 3 days prior to her admission. CT of the left knee showed suspicion for abscess and possible areas of bleeding. The patient had recent total knee replacement December 30, 2021. The patient has been admitted for the infected left knee. She did undergo revision of her left knee replacement with debridement and irrigation. She does have a wound VAC in place. The patient is complaining of left knee pain today. She denies any chest pain or pressure. She denies any shortness of breath. She has edema to her left knee. She denies any nausea, vomiting, diarrhea, PND or orthopnea. She states that she has had fevers and chills since being admitted to the hospital from her left knee infection. Cardiology has been consulted to optimize her medications and because she has an AICD in place with an infected left knee. [facility] History I have reviewed the patient's past medical history: Yes Medical History: Reports:: Aneurysm, Anxiety, Cancer (cervical cancer), Cardiomyopathy, Congestive Heart Failure, Chronic Obstructive Pulmonary Disease (COPD), Deep Vein Thrombosis, Hyperlipidemia, Hypertension, Internal Pacemaker (defibrillator only), MRSA, Palpitations, Pulmonary Embolism Denies:: Diabetes Mellitus Type 1, Diabetes Mellitus Type 2, Seizures *Have you ever received a pneumonia vaccine?: Yes *Have you received a flu vaccine this season?: No (cant take had allergic reaction to it) Other Medical History: Reports: Hypothyroidism, Thyroid Disease. Denies: Blood Transfusion Reaction Anesthesia experience/problems:: None Laterality Cases: Left: Lumpectomy, Total Knee Replacement Other Surgeries: Yes: Cardiac Catheterization, Cholecystectomy, Hysterectomy-Total, Pacemaker (defibrillator only) Amputation: No Fractures: Yes (left leg/ankle pins and rods) - *Social History Last grade of school completed: 11th or 12th Smoking Status: Current every day smoker Tobacco Type: cigarettes # Packs/Day (cigarettes): 0 Alcohol Intake: current Alcohol Intake Frequency:: holidays/special occasions only Substance Use Type: marijuana Last Used Substance: days (ago) *Occupational Status:: disabled Housing: house Household Members: friend(s) *Travel in the last 8 weeks: None - Psychiatric History Pschychiatric History:: Reports:: Anxiety Family Hx:: No significant family history Meds Home Medications Medication Instructions Recorded Confirmed Type cyclosporine 0.05 % eye drops in a 1 drp OPHTHALMIC Q12H 10/29/20 01/16/22 History dropperette ondansetron HCl 4 mg tablet 4 mg PO TID PRN #30 tab 10/31/21 01/16/22 Rx Atorvastatin Calcium [Lipitor 40mg 40 mg PO HS 12/29/21 01/16/22 History Tab] Famotidine [Acid Quantitative Associate] 20 mg PO BID 12/29/21 01/16/22 History Fluticasone Propionate 1 spray NS BID 12/29/21 01/16/22 History Gabapentin 600 mg PO TID 12/29/21 01/16/22 History Levocetirizine Dihydrochloride 5 mg PO DAILY 12/29/21 01/16/22 History Levothyroxine Sodium 200 mcg PO DAILYDM 12/29/21 01/16/22 History [Levothyroxine 200mcg (0.2mg) Tab] Mesalamine 1,600 mg PO TID 12/29/21 01/16/22 History Metoprolol Succinate [Metoprolol 150 mg PO DAILY 12/29/21 01/16/22 History Succinate 100mg Tablet*] Nitroglycerin See Rx Instructions .ROUTE .COMPLEX 12/29/21 01/16/22 History Oxybutynin Chloride 5 mg PO BID 12/29/21 01/16/22 History Rivaroxaban [Xarelto 20mg Tablet*] 20 mg PO QPMWITHMEAL 12/29/21 01/16/22 History Sacubitril/Valsartan [Entresto 49 1 tab PO BID 12/29/21 01/16/22 History mg-51 mg Tablet] Spironolactone [Spironolactone 25 mg PO DAILY 07
--- NOTE | 2022-01-19 13:07 | DIET.NUTRFU ---
Patient tearful upon visit today, hasn't been able to fill out menu selection and not really liking what she is receiving. She is in isolation secondary to MRSA. Nursing aid to take menu in and review. This RD took lunch and dinner requests for today. She is on regular diet but tries to get extra fruit and cutting back on soda to help with kidney stones. Did not have any other diet concerns
--- NOTE | 2022-01-19 13:27 | PC.NURSE ---
Notified Dr. Addison of positive blood cx's and would cx's for MRSA. Also recommended pt have a Gabrielle Dill APRN behavioral health consult in re to anxiety and crying in excess when having a conversation. Spoke with Gabrielle and she states she should be able to see pt tomorrow. Pt denies thoughts of harming self and or others. VSS. CB in reach.
--- NOTE | 2022-01-19 15:15 | CA_ITS ---
APPROVED REPORT EXAM: Comprehensive 2D, Doppler, and color-flow Echocardiogram Field Service Manager: Kathryn Whitten CRT Ht: 5 ft 10 in Wt: 294lbs BSA: 2.46 BP: 104/60 mmHg Indications: Palpitations, Hyperlipidemia, Hypertension/HDD, S/P TKR 12/30/21, I & D 01/16/22, CM, CHF, COPD, DVT, Internal Pacer, MRSA Echo 12/04/21 ef 45% 2D Dimensions LVOT 2.17 cm (M/F) 1.5-2.5 LA Volume 33.90 mL LA Volume Index 13.80 mL/m2 (M/F) 16-34 M-Mode Dimensions RVDd 3.21 cm (0.9-2.6) LA Diam 3.64 cm (1.9-4.0) LVDd 6.12 cm (3.5-5.7) Ao Diam 3.47 cm (2.0-3.7) LVDs 4.74 cm (3.5-5.7) IVSd 1.03 cm (0.6-1.1) PWd 0.69 cm (0.6-1.1) EF (Teich) 44.60% FS 22.50% EDV (Teich) 188.30 mL TAPSE 1.57 (<1.7) ESV (Teich) 104.40 mL LV Diastology E Decel Time 250.00 (160-240 msec) E/A Ratio 1.26 MED E' 10.00 (< 7 cm/sec) MED A' 8.90 cm/s E'/MED E' Ratio 9.54 (>14) LAT E' 11.60 (<10 cm/sec) LAT A' 5.70 cm/s E/LAT E' Ratio 8.22 (>14) Aortic Valve AO Peak GR. 7.60 mmHg Mitral Valve MV E Max Sky. 95.00 (40-130 cm/s) MV A Velocity 76.00 (40-130 cm/s) E/A Ratio 1.26 MV Decel. Time 250.00 (160-240 ms) MV PHT 73.00 ms Pulmonary Valve PV Peak Velocity 104.00 (50-150 cm/s) Tricuspid Valve TR P. Velocity 137.00 cm/s RAP Estimate 10.00 mmHg RVSP 17.50 mmHg Left Ventricle Left atrium is mildly enlarged, left ventricle is normal size mild concentric left ventricular hypertrophy, estimated ejection fraction 45% with no regional wall motion abnormality, diastolic parameters are inconclusive in the study. Right Ventricle Right atrium and right ventricle are normal size and contractility, pacemaker leads in the right ventricle. Aortic Valve Aortic valve is minimally thickened and fibrosed there is no aortic stenosis or aortic insufficiency. Mitral Valve Mitral valve grossly normal, there is trace mitral regurgitation. Tricuspid Valve Tricuspid grossly normal, there is trace tricuspid regurgitation, tricuspid regurgitation jet velocity is inadequate for calculation of the right ventricular systolic pressure. Pulmonic Valve Pulmonic valve is poorly visualized. Great Vessels Aortic root is normal size. Inferior vena cava normal 7 normal aspiratory collapse. Pericardium No significant pericardial effusion noted. Conclusion 1. Normal left ventricular size, estimated ejection fraction 45% with no regional wall motion abnormality, diastolic parameters are inconclusive. 2. Trace mitral and tricuspid regurgitation. 3. No significant pericardial effusion. 4. Inferior vena cava normal size with normal inspiratory collapse. Electronically signed by : Rohith Rg MD 01/19/2022 18:45:39
[2022-01-19 15:48] VITALS: BP 119/64; PULSE 91; RESP 16; TEMP 36.8; O2SAT 98
--- NOTE | 2022-01-19 19:23 | PC.NURSE ---
Meds given per aug. TANIA drain and wound vac in place. Julieta Dill APRN, behavioral health to see pt tomorrow. CB in reach. No change since prior assessment. Echo done this afternoon, pending results,which was ordered by ortho. Report given on pt.
[2022-01-19 20:00] VITALS: BP 126/80; PULSE 95; RESP 18; TEMP 37; O2SAT 98
--- NOTE | 2022-01-19 20:38 | P.PN_ITS ---
Subjective Date: 01/19/22 Time: 20:38 Principal diagnosis: Left knee prosthetic joint infection Interval history: She has been having some pain issues throughout the day. Denies fever or constitutional symptoms. She was able to stand with the aid of a walker with physical therapy. Total drain output 55 mL today. PN: Obj Ex Vital signs: Temp Pulse Resp BP Pulse Ox 98.6 F 95 H 18 126/80 98 01/19/22 20:00 01/19/22 20:00 01/19/22 20:00 01/19/22 20:00 01/19/22 20:00 - Constitutional mild distress - Routine HEENT Exam Head: Present: normocephalic, atraumatic Eye: Present: EOMI ENT: Present: mucous membranes moist - Routine Neck Exam Present: supple - Routine Respiratory Exam Present: respiratory distress - Routine Cardiovascular Exam Present: RRR - Routine Abdominal Exam Present: soft, distended - Detailed Lower Extremity Exam Knee: Left normal inspection (Palpable dorsalis pedis/posterior tibial pulse. Sensation intact to light touch deep peroneal, superficial peroneal, tibial, sural, saphenous nerve distribution. 5/5 motor function intact to extensor hallicus longus, flexor hallicus longus, tibialis anterior, gastroc/soleus, pos terior tibialis, foot eversion.), Left wound (Wound VAC in place with minimal output through the subcutaneous drain/incisional VAC. There was 25 mL present in the intra-articular drain, serosanguineous. No apparent erythema. No warmth compared to the contralateral side. She has pain with range of motion, but is able to range her knee to 90 degrees flexion. She is beginning to develop a slight knee flexion contracture.) Progress Note: A&P (1) Severe sepsis Status: Acute (2) MRSA bacteremia Status: Acute (3) Post-operative pain Status: Acute (4) Knee pain Status: Acute (5) Swelling of left knee joint Status: Acute (6) Postoperative infection of knee Status: Acute (7) Total knee replacement status Status: Acute (8) Obesity Status: Acute (9) CHF (congestive heart failure) Status: Acute Assessment and Plan for All Diagnoses:: 51-year-old female with MRSA bacteremia, wound dehiscence, prosthetic joint infection status post debridement, irrigation, polyethylene exchange. Plan to leave incisional wound VAC and drains in place until minimal output, anticipate possible removal Wednesday. Continue physical therapy. Plan to elevate calf/foot on pillows as opposed to placing pillow behind the knee given slight flexion contracture. Tentative plan for antibiotics, daptomycin 8 mg/kg of adjusted body weight. Follow-up with Dr. Tai Hogue, infectious disease in [place] upon discharge. Appreciate pharmacy dosing. Echocardiogram performed today makes no mention of valvular vegetations. Appreciate medical management per primary. Will follow.
[2022-01-20 04:00] VITALS: BP 115/74; PULSE 94; RESP 18; TEMP 37; O2SAT 92
[2022-01-20 05:00] VITALS: BMI 40.5
[2022-01-20 06:27] LABS: MANUAL DIFFERENTIAL MANUAL DIFFERENTIAL (MANUAL DIFF)
[2022-01-20 06:35] LABS: Basophils # 0.1 K/mm3 (0-0.2); Basophils % 0.9 % (0.1-2.0); Eosinophils # 0.8 K/mm3 (0.0-0.4); Eosinophils % 10.6 % (0.1-12.0); Hematocrit 29.3 % (37.0-47.0); Hemoglobin 9.2 g/dL (12.2-16.2); Lymphocytes % 27.7 % (10-50); Mean Corpuscular HGB Conc 31.4 g/dL (31.8-35.4); Mean Corpuscular Hemoglobin 30.7 pg (27.0-31.2); Mean Corpuscular Volume 97.9 fl (81-99); Mean Platelet Volume 8.8 fl (7.4-10.4); Monocytes # 0.4 K/mm3 (0.1-1.0); Monocytes % 5.7 % (1.7-9.3); Neutrophils % 55.1 % (37.0-80.0); Platelet Count 380 K/mm3 (142-424); Red Blood Count 2.99 M/mm3 (4.20-5.40); Red Cell Distribution Width 14.2 % (11.5-17.5); White Blood Count 7.3 K/mm3 (4.8-10.8)
[2022-01-20 06:39] LABS: Chloride 104 mmol/L (98-107); Potassium 4.1 mmoL/L (3.5-5.1); Sodium 138 mmol/L (136-145)
[2022-01-20 06:42] LABS: Blood Urea Nitrogen 13 mg/dl (7-17); Creatinine Clearance Estimated 104 mL/min (50-200); Estimated Glomerular Filt Rate 89 ml/min (>60); GFR (African American) 107 ML/MIN (>60)
[2022-01-20 06:43] LABS: Anion Gap 7.1 mEq/L (5-15); Calcium 9.5 mg/dl (8.4-10.2); Carbon Dioxide 31 mmol/L (22.0-30.0); Glucose 111 mg/dl (74-100)
--- NOTE | 2022-01-20 06:49 | PC.NURSE ---
Addendum entered by Renata Hampton RN 01/20/22 06:57: MIVF running at 50mL/hr Original Note: pt rested some this shift, pt VSS throughout shift, pt hesitant to move leg due to pain but encouraged pt to move as much as possible on own for better pt outcome, pt c/o pain throughout shift prn and scheduled meds being given, pt using purewick with adequate UOP, pt did state hasn't had bowel movement in quite some time will alert day RN to ask team to order something to assist pt in moving bowels
--- NOTE | 2022-01-20 07:37 | PC.NURSE ---
received call from lab ([facility]) reporting that left knee wound cx if MRSA +. Name and verified. Dr. Addison updated.
[2022-01-20 07:56] LABS: Eosinophils % 4 % (0-3); Hypochromasia 1+; Lymphocytes % 24 % (10-50); Macrocytosis 1+; Monocytes % 6 % (2-9); Neutrophils % 66 % (42-76); Platelet Estimate Normal; Total Cells Counted 100
[2022-01-20 08:00] VITALS: BP 118/68; PULSE 98; RESP 22; TEMP 36.8; O2SAT 98
--- NOTE | 2022-01-20 09:05 | HMH.ORTHPN ---
Subjective Date: 01/20/22 Time: 08:45 Principal diagnosis: Left knee prosthetic joint infection Interval history: Ms. Vincent is a 51-year-old female patient who underwent an uneventful revision left knee polyethylene liner exchange, left knee arthrotomy, debridement, and irrigation performed by Dr. Lopez on 01/16/2022. Today the patient is postop day #4. This morning she is lying comfortably in bed. She continues to report left knee pain, but is otherwise feeling well. No history of fevers, chills, rigors, or distal tingling/numbness. She denies any other symptoms or concerns at this time. PN: Obj Ex Vital signs: Temp Pulse Resp BP Pulse Ox 98.3 F 98 H 22 118/68 98 01/20/22 08:00 01/20/22 08:00 01/20/22 08:00 01/20/22 08:00 01/20/22 08:00 - Constitutional no acute distress, cooperative - Routine HEENT Exam Head: Present: normocephalic, atraumatic Eye: Present: EOMI, PERRL ENT: Present: mucous membranes moist - Routine Neck Exam Present: supple, full ROM, trachea midline. Absent: JVD, lymphadenopathy - Routine Respiratory Exam Absent: accessory muscle use, respiratory distress Comments: Symmetric chest movement, able to speak in complete sentences - Routine Cardiovascular Exam Present: RRR Comments: Normal peripheral pulses - Routine Abdominal Exam Present: soft. Absent: tenderness - Routine Extremities Exam Comments: Upon examination of the left knee: Dressings present over the left knee are clean, dry, and intact. There is a surgical drain and wound VAC in place with minimal serosanguineous output. Attempted movements of the left knee are somewhat painful. Thigh and calf are soft and nontender; Homans' sign is negative. No clinical evidence of DVT noted. Posterior tibial pulse 1+; capillary refill is brisk. Sensation to light touch is grossly intact throughout. Patient is actively mobilizing the foot, ankle, and toes. - Routine Skin Exam Present: intact, warm, normal turgor. Absent: cyanosis, erythema, lesions, jaundice - Routine Neurological Exam Present: alert, oriented X3, CN II-XII intact, moving all extremities, normal tone, normal speech. Absent: sensory deficit, motor deficit, altered mental status - Routine Psychiatric Exam Present: normal affect, cooperative Progress Note: A&P (1) Severe sepsis Status: Acute (2) MRSA bacteremia Status: Acute (3) Post-operative pain Status: Acute (4) Knee pain Status: Acute (5) Swelling of left knee joint Status: Acute (6) Postoperative infection of knee Status: Acute (7) Total knee replacement status Status: Acute (8) Obesity Status: Acute (9) CHF (congestive heart failure) Status: Acute Assessment and Plan for All Diagnoses:: I have discussed the clinical findings and progress with the patient. Overall she is doing well from an orthopedic standpoint this morning. Plan to keep wound VAC in place for at least 5 days postoperatively; subcutaneous drain is incorporated into the wound VAC - if wound VAC seal is lost, Dr. Lopez would like to be present to change the dressing so that the drain is not inadvertently removed. Anticipating removal tomorrow. Continue IV antibiotics/PICC line placement, daptomycin 8 mg/kg adjusted body weight. Plan to follow-up with Dr. Tai Hogue, infectious disease specialist in [place] upon discharge. Continue PT/OT; patient may weight-bear as tolerated on the left lower extremity. Elevate calf/foot on pillows, avoid placing pillow behind the knee given development of slight flexion contracture. Continue rest, ice, and as needed pain medication. Continue medical management as per primary team.
--- NOTE | 2022-01-20 09:28 | HMH.ACPN ---
Internal Medicine - PN: Subj *Date: 01/20/22 *Time: 09:28 Exam Vital signs and Labs for Last 24 Hours: Temp Pulse Resp BP Pulse Ox 98.3 F 98 H 22 118/68 98 01/20/22 08:00 01/20/22 08:00 01/20/22 08:00 01/20/22 08:00 01/20/22 08:00 Laboratory Results - last 24 hr 01/20/22 05:50: WBC 7.3, RBC 2.99 L, Hgb 9.2 L, Hct 29.3 L, MCV 97.9, MCH 30.7, MCHC 31.4 L, RDW 14.2, Plt Count 380, MPV 8.8, Neut % (Auto) 55.1, Lymph % (Auto) 27.7, Lares % (Auto) 5.7, Eos % (Auto) 10.6, Baso % (Auto) 0.9, Neut # (Auto) 4.0, Lymph # (Auto) 2.0, Lares # (Auto) 0.4, Eos # (Auto) 0.8 H, Baso # (Auto) 0.1, Total Counted 100, Neutrophils % (Manual) 66, Lymphocytes % (Manual) 24, Monocytes % (Manual) 6, Eosinophils % (Manual) 4 H, Platelet Estimate Normal, Hypochromasia 1+, Macrocytosis 1+ 01/20/22 05:50: Sodium 138, Potassium 4.1, Chloride 104, Carbon Dioxide 31 H, Anion Gap 7.1, BUN 13, Creatinine 0.70, Estimated Creat Clear 104, Estimated GFR 89, Est GFR ( Amer) 107, Glucose 111 H, Calcium 9.5 I & O for Last 24 hours: Intake & Output 01/17/22 01/18/22 01/19/22 01/20/22 23:59 23:59 23:59 23:59 Intake Total 2144 / 2144 2271 / 2271 2638 / 2638 360 / 360 Output Total 1005 / 1005 970 / 1170 2505 / 2505 300 / 300 Balance 1139 / 1139 1301 / 1101 133 / 133 60 / 60 Weight 125.758 kg 133.356 kg 131.258 kg Microbiology Reports for the Last 24 Hours: Microbiology 01/18/22 08:15 Blood Blood Culture - Preliminary NO GROWTH AFTER 48 HOURS 01/18/22 08:15 Blood Blood Culture - Preliminary NO GROWTH AFTER 48 HOURS 01/16/22 16:00 Knee,Left - Wound Gram Stain - Final 01/16/22 16:00 Knee,Left - Wound Surgical Biopsy Culture - Final Staphylococcus aureus 01/16/22 16:00 Knee,Left - Drainage Gram Stain - Final 01/16/22 16:00 Knee,Left - Drainage Abscess Culture - Final Staphylococcus aureus 01/16/22 08:25 Blood Blood Culture - Final Staphylococcus aureus 01/16/22 16:00 Knee,Left - Drainage Gram Stain - Final 01/16/22 16:00 Knee,Left - Drainage Wound Culture - Final Staphylococcus aureus 01/16/22 08:25 Blood Blood Culture - Final Staphylococcus aureus Assessment and Plan (1) Severe sepsis Status: Acute Category: Medical Code(s): A41.9 - Sepsis, unspecified organism; R65.20 - Severe sepsis without septic shock (2) MRSA bacteremia Status: Acute Category: Medical Code(s): R78.81 - Bacteremia; B95.62 - Methicillin resistant Staphylococcus aureus infection as the cause of diseases classified elsewhere (3) Post-operative pain Status: Acute Category: Medical Code(s): G89.18 - Other acute postprocedural pain (4) Knee pain Status: Acute Qualifiers: Chronicity: acute Laterality: left Qualified Code(s): M25.562 - Pain in left knee Category: Medical Code(s): M25.569 - Pain in unspecified knee (5) Swelling of left knee joint Status: Acute Category: Medical Code(s): M25.462 - Effusion, left knee (6) Postoperative infection of knee Status: Acute Category: Medical Code(s): T81.49XA - Infection following a procedure, other surgical site, initial encounter; M00.9 - Pyogenic arthritis, unspecified (7) Total knee replacement status Status: Acute Category: Surgical Code(s): Z96.659 - Presence of unspecified artificial knee joint (8) Obesity Status: Acute Qualifiers: Obesity type: due to excess calories Obesity classification: adult class 3 (BMI >= 40) Serious obesity comorbidity presence: with serious comorbidity Body mass index: BMI 40.0-44.9 Qualified Code(s): E66.01 - Morbid (severe) obesity due to excess calories; Z68.41 - Body mass index [BMI] 40.0-44.9, adult Category: Medical Code(s): E66.9 - Obesity, unspecified (9) CHF (congestive
--- NOTE | 2022-01-20 10:05 | XR_ITS ---
FINAL REPORT CLINICAL HISTORY: Confirm PICC line placement COMPARISON: January 18, 2022 FINDINGS: A new right-sided PICC line terminates in the mid SVC. There is a left subclavian ICD. The heart size is normal. The mediastinum is normal. There is no focal infiltrate or edema. There are no pleural effusions. There is no pneumothorax. There is no osseous abnormality. IMPRESSION: Right-sided PICC line terminates in the mid SVC peer Reviewed, Interpreted and Dictated by Nicolas Malhotra III, MD Transcribed by Dhaval Ford Authenticated and [facility]
--- NOTE | 2022-01-20 11:21 | SW/DCPLANNER ---
Addendum entered by [facility] 01/23/22 13:29: Per Naty this patient has been accepted to [facility] today SNF level of care. COVID swab is NOT needed prior to discharge. Addendum entered by [facility] 01/23/22 08:46: Precert is pending per [facility]/ [facility]. Patient is medically stable for discharge later today if approved. Addendum entered by [facility] 01/21/22 11:38: [facility] stated that she can accept this patient and can offer a private bed. Patient concurs with this plan and understands once one facility starts prior auth another facility can not. I will continue to follow up with: patient, MD and [facility]. Addendum entered by [facility] 01/21/22 09:28: [facility] is reviewing patient information. Patient information has also been faxed to [facility] and [facility] in [place]. Addendum entered by [facility] 01/20/22 15:17: [facility]/ [facility] has stated that she is currently reviewing patient information. Addendum entered by [facility] 01/20/22 15:04: Valentina [facility]erg/ [facility] called and stated they are not in network with this patient's insurance. Addendum entered by [facility] 01/20/22 13:52: [facility] is currently reviewing insurance. I am also waiting to hear back from [facility] and [facility]. Original Note: I spoke with this patient regarding plans once medically stable for discharge. Patient will need IV antibiotics and PICC line at discharge, wound vac care and physical therapy. I explained different discharge options to this patient: discharge home and return as outpatient vs home w/ home health vs placement. Patient expressed that she is most interested in placement once medically stable for discharge. Patient is open to any facility in [place] at this time. I will fax patient information to: [facility]. I will continue to follow up with MD, patient and facilities.
--- NOTE | 2022-01-20 13:08 | HMH.ACPN2 ---
Internal Medicine - PN: Subj *Date: 01/20/22 *Time: 23:30 Interval history: weepy,tearful this morning better pain control working with physical therapy Exam Vital signs and Labs for Last 24 Hours: Temp Pulse Resp BP Pulse Ox 98.3 F 98 H 22 118/68 98 01/20/22 08:00 01/20/22 08:00 01/20/22 08:00 01/20/22 08:00 01/20/22 08:00 Laboratory Results - last 24 hr 01/20/22 05:50: WBC 7.3, RBC 2.99 L, Hgb 9.2 L, Hct 29.3 L, MCV 97.9, MCH 30.7, MCHC 31.4 L, RDW 14.2, Plt Count 380, MPV 8.8, Neut % (Auto) 55.1, Lymph % (Auto) 27.7, [place] % (Auto) 5.7, Eos % (Auto) 10.6, Baso % (Auto) 0.9, Neut # (Auto) 4.0, Lymph # (Auto) 2.0, [place] # (Auto) 0.4, Eos # (Auto) 0.8 H, Baso # (Auto) 0.1, Total Counted 100, Neutrophils % (Manual) 66, Lymphocytes % (Manual) 24, Monocytes % (Manual) 6, Eosinophils % (Manual) 4 H, Platelet Estimate Normal, Hypochromasia 1+, Macrocytosis 1+ 01/20/22 05:50: Sodium 138, Potassium 4.1, Chloride 104, Carbon Dioxide 31 H, Anion Gap 7.1, BUN 13, Creatinine 0.70, Estimated Creat Clear 104, Estimated GFR 89, Est GFR ( Amer) 107, Glucose 111 H, Calcium 9.5 I & O for Last 24 hours: Intake & Output 01/17/22 01/18/22 01/19/22 01/20/22 23:59 23:59 23:59 23:59 Intake Total 2144 / 2144 2271 / 2271 2638 / 2638 360 / 360 Output Total 1005 / 1005 970 / 1170 2505 / 2505 300 / 300 Balance 1139 / 1139 1301 / 1101 133 / 133 60 / 60 Weight 277 lb 4 oz 294 lb 289 lb 6 oz Microbiology Reports for the Last 24 Hours: Microbiology 01/18/22 08:15 Blood Blood Culture - Preliminary NO GROWTH AFTER 48 HOURS 01/18/22 08:15 Blood Blood Culture - Preliminary NO GROWTH AFTER 48 HOURS 01/16/22 16:00 Knee,Left - Wound Gram Stain - Final 01/16/22 16:00 Knee,Left - Wound Surgical Biopsy Culture - Final Staphylococcus aureus - Constitutional chronically ill appearing - *Routine HEENT Exam Head: Present: normocephalic Eye: Present: EOMI, PERRL ENT: Present: mucous membranes moist - *Routine Neck Exam Present: supple. Absent: lymphadenopathy - *Routine Respiratory Exam Present: CTA bilaterally - *Routine Cardiovascular Exam Present: RRR - *Routine Abdominal Exam Present: soft, normoactive bowel sounds. Absent: tenderness - *Routine Extremities Exam Absent: extremity cold to touch - *Routine Skin Exam Present: warm. Absent: rash - *Routine Neurological Exam Present: alert, oriented X3 Assessment and Plan (1) Severe sepsis Status: Acute Category: Medical Code(s): A41.9 - Sepsis, unspecified organism; R65.20 - Severe sepsis without septic shock (2) MRSA bacteremia Status: Acute Category: Medical Code(s): R78.81 - Bacteremia; B95.62 - Methicillin resistant Staphylococcus aureus infection as the cause of diseases classified elsewhere (3) Post-operative pain Status: Acute Category: Medical Code(s): G89.18 - Other acute postprocedural pain (4) Knee pain Status: Acute Qualifiers: Chronicity: acute Laterality: left Qualified Code(s): M25.562 - Pain in left knee Category: Medical Code(s): M25.569 - Pain in unspecified knee (5) Swelling of left knee joint Status: Acute Category: Medical Code(s): M25.462 - Effusion, left knee (6) Postoperative infection of knee Status: Acute Category: Medical Code(s): T81.49XA - Infection following a procedure, other surgical site, initial encounter; M00.9 - Pyogenic arthritis, unspecified (7) Total knee replacement status Status: Acute Category: Surgical Code(s): Z96.659 - Presence of unspecified artificial knee joint (8) Obesity Status: Acute Qualifiers: Obesity type: due to excess calories Obesity classification: adult class 3 (BMI >= 40) Serious obesity comorbidity presence: with serious comorbidity Body mass index: BMI 40.0-44.9 Qualified Code(s): E66.01 - Morbid (severe) obesity
[2022-01-20 16:00] VITALS: BP 122/73; PULSE 100; RESP 22; TEMP 36.8; O2SAT 97
--- NOTE | 2022-01-20 17:18 | PC.NURSE ---
pt speaking with destiny thakkar
--- NOTE | 2022-01-20 18:01 | PC.NURSE ---
pt has been very tearful t/o shift with c/o pain, pain medication given at meg times,with some relief. PICC line placed in BRENN[place], tolerated well. pt has been up to chair at bedside for around 3 hrs and took a sponge bath. surgical site with wound vac & mary ellen drain on LLE with dsg kellee bandage cdi. bilat legs propped up on pillows. 5ml sanguineous fluid out of mary ellen drain. pt spoke with destiny thakkar. cb and personal items within reach.
[2022-01-20 20:00] VITALS: BP 145/73; PULSE 104; RESP 20; TEMP 37; O2SAT 98
[2022-01-21 04:00] VITALS: BP 129/64; PULSE 103; RESP 18; TEMP 36.9; O2SAT 97
[2022-01-21 04:12] VITALS: BMI 41.8
--- NOTE | 2022-01-21 05:30 | PC.NURSE ---
No acute change. Pt has c/o left leg pain multiple times t/o shift and has required both scheduled and PRN pain medication. Pt has been very tearful t/o shift. 10 ml have been emptied from TANIA drain during this shift. Drainage is serosang. Call light within reach.
[2022-01-21 06:19] LABS: Chloride 102 mmol/L (98-107); Sodium 136 mmol/L (136-145)
[2022-01-21 06:21] LABS: Basophils # 0.1 K/mm3 (0-0.2); Basophils % 0.8 % (0.1-2.0); Eosinophils # 0.8 K/mm3 (0.0-0.4); Eosinophils % 9.7 % (0.1-12.0); Hematocrit 27.1 % (37.0-47.0); Hemoglobin 8.6 g/dL (12.2-16.2); Lymphocytes # 2.5 K/mm3 (0.7-4.5); Lymphocytes % 28.8 % (10-50); Mean Corpuscular HGB Conc 31.7 g/dL (31.8-35.4); Mean Corpuscular Volume 97.7 fl (81-99); Mean Platelet Volume 8.4 fl (7.4-10.4); Monocytes # 0.5 K/mm3 (0.1-1.0); Monocytes % 5.9 % (1.7-9.3); Neutrophils # 4.7 K/mm3 (1.8-7.8); Neutrophils % 54.9 % (37.0-80.0); Platelet Count 380 K/mm3 (142-424); Red Blood Count 2.78 M/mm3 (4.20-5.40); Red Cell Distribution Width 14.3 % (11.5-17.5); White Blood Count 8.6 K/mm3 (4.8-10.8)
[2022-01-21 06:22] LABS: Blood Urea Nitrogen 15 mg/dl (7-17); Calcium 9.3 mg/dl (8.4-10.2); Carbon Dioxide 32 mmol/L (22.0-30.0); Creatinine Clearance Estimated 104 mL/min (50-200); Estimated Glomerular Filt Rate 89 ml/min (>60); GFR (African American) 107 ML/MIN (>60); Glucose 115 mg/dl (74-100)
[2022-01-21 08:00] VITALS: BP 107/67; PULSE 97; RESP 17; TEMP 37.1; O2SAT 97
--- NOTE | 2022-01-21 09:02 | HMH.ACPN2 ---
Internal Medicine - PN: Subj *Date: 01/21/22 *Time: 09:02 Interval history: 51-year-old female patient resting in bed quietly she reports she had a bad night, but will not elaborate on it. She reports pain pain medicines barely decreases pain. She does complain of no bowel movement for several days and abdominal fullness. Wound VAC to knee intact with drain connected with serosanguineous drainage. She does report she has more movement with her left foot. Discussed possible rehab options upon discharge, case management will discuss further Exam Vital signs and Labs for Last 24 Hours: Temp Pulse Resp BP Pulse Ox 98.7 F 97 H 17 107/67 L 97 01/21/22 08:00 01/21/22 08:00 01/21/22 08:00 01/21/22 08:00 01/21/22 08:00 Laboratory Results - last 24 hr 01/21/22 06:00: WBC 8.6, RBC 2.78 L, Hgb 8.6 L, Hct 27.1 L, MCV 97.7, MCH 31.0, MCHC 31.7 L, RDW 14.3, Plt Count 380, MPV 8.4, Neut % (Auto) 54.9, Lymph % (Auto) 28.8, [place] % (Auto) 5.9, Eos % (Auto) 9.7, Baso % (Auto) 0.8, Neut # (Auto) 4.7, Lymph # (Auto) 2.5, [place] # (Auto) 0.5, Eos # (Auto) 0.8 H, Baso # (Auto) 0.1 01/21/22 06:00: Sodium 136, Potassium 4.0, Chloride 102, Carbon Dioxide 32 H, Anion Gap 6.0, BUN 15, Creatinine 0.70, Estimated Creat Clear 104, Estimated GFR 89, Est GFR ( Amer) 107, Glucose 115 H, Calcium 9.3 I & O for Last 24 hours: Intake & Output 01/18/22 01/19/22 01/20/22 01/21/22 23:59 23:59 23:59 23:59 Intake Total 2271 / 2271 2638 / 2638 2263 / 2263 1014 / 1014 Output Total 970 / 1170 2505 / 2505 305 / 555 1355 / 1355 Balance 1301 / 1101 133 / 133 1958 / 1708 -341 / -341 Weight 277 lb 4 oz 294 lb 289 lb 6 oz 299 lb - Constitutional no acute distress, chronically ill appearing - *Routine HEENT Exam Head: Present: normocephalic Eye: Present: EOMI ENT: Present: mucous membranes moist - *Routine Neck Exam Present: trachea midline. Absent: tracheal deviation - *Routine Respiratory Exam Present: decreased breath sounds. Absent: accessory muscle use - *Routine Cardiovascular Exam Present: RRR - *Routine Abdominal Exam Present: soft, normoactive bowel sounds. Absent: tenderness, firm - *Routine Extremities Exam Present: edema, pulses intact. Absent: cyanosis, clubbing, full ROM - *Routine Skin Exam Present: erythema, warm, wounds. Absent: cyanosis, dry - *Routine Neurological Exam Present: alert, oriented X3. Absent: motor deficit - Routine Psychiatric Exam Present: normal affect, normal thought process. Absent: auditory hallucinations Assessment and Plan (1) Severe sepsis Status: Acute Category: Medical Code(s): A41.9 - Sepsis, unspecified organism; R65.20 - Severe sepsis without septic shock (2) MRSA bacteremia Status: Acute Category: Medical Code(s): R78.81 - Bacteremia; B95.62 - Methicillin resistant Staphylococcus aureus infection as the cause of diseases classified elsewhere (3) Post-operative pain Status: Acute Category: Medical Code(s): G89.18 - Other acute postprocedural pain (4) Knee pain Status: Acute Qualifiers: Chronicity: acute Laterality: left Qualified Code(s): M25.562 - Pain in left knee Category: Medical Code(s): M25.569 - Pain in unspecified knee (5) Swelling of left knee joint Status: Acute Category: Medical Code(s): M25.462 - Effusion, left knee (6) Postoperative infection of knee Status: Acute Category: Medical Code(s): T81.49XA - Infection following a procedure, other surgical site, initial encounter; M00.9 - Pyogenic arthritis, unspecified (7) Total knee replacement status Status: Acute Category: Surgical Code(s): Z96.659 - Presence of unspecified artificial knee joint (8) Obesity Status: Acute Qualifiers: Obesity type: due to excess calories Obesity classification: adult class 3 (BMI >= 40) Serious obesity comorbidity presence: with serious comorbidity Body mass index: BMI 40.0-44.9 Qualified Code(s): E66.0
--- NOTE | 2022-01-21 09:40 | DIET.NUTRFU ---
Addendum entered by Linsey Noriega RD, LD 01/22/22 15:31: Meal intake improved today 50% noted at both breakfast and lunch. She was up in chair for breakfast. Seemed in good spirits about discharge to rehab facility. Have menu for today and tomorrow in kitchen Original Note: Patient is still having menu issues, either not receiving a menu or not filling it out. But complaining about the food she gets. She is a picky eater, claims she cannot tolerate some foods and filling out menu is important to help improve her meal intake. This RD will provide a couple days worth of menus for her to fill out and nursing or dietary will make sure kitchen staff receives them. Lunch order for today has already been taken
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
--- NOTE | 2022-01-21 13:32 | HMH.ORTHPN ---
Subjective Date: 01/21/22 Time: 12:35 Principal diagnosis: Left knee prosthetic joint infection Interval history: Ms. Vincent is a 51-year-old female patient who underwent an uneventful revision left knee polyethylene liner exchange, left knee arthrotomy, debridement, and irrigation performed by Dr. Lopez on 01/16/2022. Today the patient is postop day #5. This afternoon she is lying comfortably in bed. She continues to report left knee pain, but is otherwise feeling well. No history of fevers, chills, rigors, or distal tingling/numbness. She denies any other symptoms or concerns at this time. PN: Obj Ex Vital signs: Temp Pulse Resp BP Pulse Ox 98.7 F 97 H 17 107/67 L 97 01/21/22 08:00 01/21/22 08:00 01/21/22 08:00 01/21/22 08:00 01/21/22 08:00 - Constitutional no acute distress, cooperative - Routine HEENT Exam Head: Present: normocephalic, atraumatic Eye: Present: EOMI, PERRL ENT: Present: mucous membranes moist - Routine Neck Exam Present: supple, full ROM, trachea midline. Absent: JVD, lymphadenopathy - Routine Respiratory Exam Absent: accessory muscle use, respiratory distress Comments: Symmetric chest movement, able to speak in complete sentences - Routine Cardiovascular Exam Present: RRR Comments: normal peripheral pulses - Routine Abdominal Exam Present: soft. Absent: tenderness - Routine Extremities Exam Comments: Upon examination of the left knee: Dressings present over the left knee are clean, dry, and intact. There is a surgical drain and wound VAC in place with minimal serosanguineous output. Out of the dressings, the surgical incision is healing well. No erythema, induration, or purulent drainage noted. Attempted movements of the left knee are somewhat painful. Thigh and calf are soft and nontender; Homans' sign is negative. No clinical evidence of DVT noted. Posterior tibial pulse 1+; capillary refill is brisk. Sensation to light touch is grossly intact throughout. Patient is actively mobilizing the foot, ankle, and toes. - Routine Skin Exam Present: intact, warm, normal turgor. Absent: cyanosis, erythema, lesions, jaundice - Routine Neurological Exam Present: alert, oriented X3, CN II-XII intact, moving all extremities, normal tone, normal speech. Absent: sensory deficit, motor deficit, altered mental status - Routine Psychiatric Exam Present: normal affect, cooperative, anxious Progress Note: A&P (1) Severe sepsis Status: Acute (2) MRSA bacteremia Status: Acute (3) Post-operative pain Status: Acute (4) Knee pain Status: Acute (5) Swelling of left knee joint Status: Acute (6) Postoperative infection of knee Status: Acute (7) Total knee replacement status Status: Acute (8) Obesity Status: Acute (9) CHF (congestive heart failure) Status: Acute Assessment and Plan for All Diagnoses:: Rounded with Dr. Ellsworth; overall the patient is doing well from an orthopedic standpoint this afternoon. We have removed the surgical drains and wound VAC and the surgical incision is healing well. The surgical incision was redressed with Xeroform and sterile bordered gauze dressings. Continue IV antibiotics, daptomycin 8 mg/kg adjusted body weight. Plan to follow-up with Dr. Tai Hogue, infectious disease specialist in [place] upon discharge. Continue PT/OT; patient may weight-bear as tolerated on the left lower extremity. Elevate calf/foot on pillows, avoid placing pillow behind the knee given development of slight flexion contracture. Plan to follow up with Dr. Lopez in our office next Wednesday01/30/2022. Continue rest, ice, and as needed pain medication. Case management team coordinating discharge planning. Continue medical management as per primary team.
[2022-01-21 15:16] VITALS: BP 103/50; PULSE 101; RESP 18; TEMP 37.6; O2SAT 95
--- NOTE | 2022-01-21 17:00 | PC.NURSE ---
late entry for 01/21/2022- pt is aox4, able to make needs known to staff, picc line dsg change this shift. dsg changed per ortho staff at bedside this shift. treated for pain per mar at frequent intervals.
[2022-01-21 20:00] VITALS: BP 117/65; PULSE 99; RESP 20; TEMP 37.4; O2SAT 95
--- NOTE | 2022-01-22 03:49 | PC.NURSE ---
Pt has c/o pain t/o shift to LLE requiring medication as often permitted per mar. She has also been emotional t/o shift. Comfort measures and emotional support given via staff. LLE is swollen around knee. DSGs are C/D/I. VSS. Pt encouraged to get up for breakfast. Call light at bedside.
[2022-01-22 04:00] VITALS: BP 117/68; PULSE 97; RESP 20; TEMP 37; O2SAT 97
[2022-01-22 04:40] VITALS: BMI 41.8
[2022-01-22 06:13] LABS: Basophils % 0.5 % (0.1-2.0); Eosinophils % 13.3 % (0.1-12.0); Hematocrit 25.2 % (37.0-47.0); Hemoglobin 8.1 g/dL (12.2-16.2); Lymphocytes # 2.3 K/mm3 (0.7-4.5); Lymphocytes % 30.2 % (10-50); Mean Corpuscular HGB Conc 32.1 g/dL (31.8-35.4); Mean Corpuscular Hemoglobin 31.1 pg (27.0-31.2); Mean Platelet Volume 8.1 fl (7.4-10.4); Monocytes # 0.5 K/mm3 (0.1-1.0); Monocytes % 6.1 % (1.7-9.3); Neutrophils # 3.8 K/mm3 (1.8-7.8); Neutrophils % 49.8 % (37.0-80.0); Platelet Count 389 K/mm3 (142-424); Red Cell Distribution Width 14.1 % (11.5-17.5); White Blood Count 7.5 K/mm3 (4.8-10.8)
[2022-01-22 06:18] LABS: Chloride 102 mmol/L (98-107)
[2022-01-22 06:19] LABS: Potassium 3.8 mmoL/L (3.5-5.1); Sodium 136 mmol/L (136-145)
[2022-01-22 06:21] LABS: Blood Urea Nitrogen 10 mg/dl (7-17); Creatinine Clearance Estimated 121 mL/min (50-200); Estimated Glomerular Filt Rate 106 ml/min (>60); GFR (African American) 128 ML/MIN (>60)
[2022-01-22 06:22] LABS: Anion Gap 5.8 mEq/L (5-15); Calcium 9.2 mg/dl (8.4-10.2); Carbon Dioxide 32 mmol/L (22.0-30.0); Glucose 150 mg/dl (74-100)
[2022-01-22 08:00] VITALS: BP 145/74; PULSE 113; RESP 16; TEMP 37.1; O2SAT 95
--- NOTE | 2022-01-22 08:39 | HMH.ORTHPN ---
Subjective Date: 01/22/22 Time: 08:25 Principal diagnosis: Left knee prosthetic joint infection Interval history: Ms. Vincent is a 51-year-old female patient who underwent an uneventful revision left knee polyethylene liner exchange, left knee arthrotomy, debridement, and irrigation performed by Dr. Lopez on 01/16/2022. Today the patient is postop day #6. This morning she is sitting comfortably in her chair at the bedside. She reports some left knee pain, but states that it it is well controlled with rest and as needed pain medication. She is otherwise feeling well, less tearful this morning. She has been ambulating some with the assistance of physical therapy. No history of fevers, chills, rigors, or distal tingling/numbness. She denies any other symptoms or concerns at this time. PN: Obj Ex Vital signs: Temp Pulse Resp BP Pulse Ox 98.8 F 113 H 16 145/74 H 95 01/22/22 08:00 01/22/22 08:00 01/22/22 08:00 01/22/22 08:00 01/22/22 08:00 - Constitutional no acute distress, cooperative - Routine HEENT Exam Head: Present: normocephalic, atraumatic Eye: Present: EOMI, PERRL ENT: Present: mucous membranes moist - Routine Neck Exam Present: supple, full ROM, trachea midline. Absent: JVD, lymphadenopathy - Routine Respiratory Exam Absent: accessory muscle use, respiratory distress Comments: Symmetric chest movement, able to speak in complete sentences - Routine Cardiovascular Exam Present: RRR Comments: Normal peripheral pulses - Routine Abdominal Exam Present: soft. Absent: tenderness - Routine Extremities Exam Comments: Upon examination of the left knee: Dressings present over the left knee are clean, dry, and intact. No evidence of drainage or bleeding noted. Attempted movements of the left knee are somewhat painful. Thigh and calf are soft and nontender; Homans' sign is negative. No clinical evidence of DVT noted. Posterior tibial pulse 1+; capillary refill is brisk. Sensation to light touch is grossly intact throughout. Patient is actively mobilizing the foot, ankle, and toes. - Routine Skin Exam Present: intact, warm, normal turgor. Absent: cyanosis, erythema, lesions, jaundice - Routine Neurological Exam Present: alert, oriented X3, CN II-XII intact, moving all extremities, normal tone, normal speech. Absent: sensory deficit, motor deficit, altered mental status - Routine Psychiatric Exam Present: normal affect, cooperative Progress Note: A&P (1) Severe sepsis Status: Acute (2) MRSA bacteremia Status: Acute (3) Post-operative pain Status: Acute (4) Knee pain Status: Acute (5) Swelling of left knee joint Status: Acute (6) Postoperative infection of knee Status: Acute (7) Total knee replacement status Status: Acute (8) Obesity Status: Acute (9) CHF (congestive heart failure) Status: Acute Assessment and Plan for All Diagnoses:: I have discussed the clinical findings and progress the patient. Overall she is doing well from an orthopedic standpoint this morning and may be discharged medically appropriate. Dressings present over the left knee are clean, dry, and intact. Continue IV antibiotics, daptomycin 8 mg/kg adjusted body weight. Plan to follow-up with Dr. Tai Hogue, infectious disease specialist in [place] upon discharge; the patient has an appointment with Dr. Hogue scheduled for 01/29/2022 at 9:00 AM. Continue PT/OT; patient may weight-bear as tolerated on the left lower extremity. Elevate calf/foot on pillows, avoid placing pillow behind the knee. Plan to follow up with Dr. Lopez in our office next Wednesday, the patient has an appointment on 01/30/2022 at 12:45 PM. Continue rest, ice, and as needed pain medication. Case management team coordinating discharge planning, patient tentatively being discharged to [facility] in [place]. Continue medical management as per primary team.
--- NOTE | 2022-01-22 09:19 | HMH.ACPN2 ---
Internal Medicine - PN: Subj *Date: 01/22/22 *Time: 09:19 Interval history: 51-year-old female patient sitting up in the chair resting quietly. Ortho removed her drain and VAC dressing yesterday, dressing to left knee clean/dry/intact today. Patient reports she is feeling better and pain is At a tolerable level with medications. She reports she is doing more with physical therapy. Discharge planning in progress assessment and she is agreeable to rehab facility. Exam Vital signs and Labs for Last 24 Hours: Temp Pulse Resp BP Pulse Ox 98.8 F 113 H 16 145/74 H 95 01/22/22 08:00 01/22/22 08:00 01/22/22 08:00 01/22/22 08:00 01/22/22 08:00 Laboratory Results - last 24 hr 01/22/22 05:44: WBC 7.5, RBC 2.60 L, Hgb 8.1 L, Hct 25.2 L, MCV 97.0, MCH 31.1, MCHC 32.1, RDW 14.1, Plt Count 389, MPV 8.1, Neut % (Auto) 49.8, Lymph % (Auto) 30.2, [place] % (Auto) 6.1, Eos % (Auto) 13.3 H, Baso % (Auto) 0.5, Neut # (Auto) 3.8, Lymph # (Auto) 2.3, [place] # (Auto) 0.5, Eos # (Auto) 1.0 H, Baso # (Auto) 0.0 01/22/22 05:44: Sodium 136, Potassium 3.8, Chloride 102, Carbon Dioxide 32 H, Anion Gap 5.8, BUN 10 D, Creatinine 0.60, Estimated Creat Clear 121, Estimated GFR 106, Est GFR ( Amer) 128, Glucose 150 H D, Calcium 9.2 I & O for Last 24 hours: Intake & Output 01/19/22 01/20/22 01/21/22 01/22/22 23:59 23:59 23:59 23:59 Intake Total 2638 / 2638 2263 / 2263 1691 / 1691 360 / 360 Output Total 2505 / 2505 305 / 555 1955 / 2755 800 / 800 Balance 133 / 133 195 / 170 -264 / -1064 -440 / -440 Weight 294 lb 289 lb 6 oz 299 lb 298 lb 14.4 oz - Constitutional no acute distress - *Routine HEENT Exam Head: Present: normocephalic Eye: Present: EOMI ENT: Present: mucous membranes moist - *Routine Neck Exam Present: trachea midline. Absent: tracheal deviation - *Routine Respiratory Exam Present: CTA bilaterally. Absent: accessory muscle use - *Routine Cardiovascular Exam Present: RRR - *Routine Abdominal Exam Present: soft, normoactive bowel sounds, tenderness - *Routine Extremities Exam Present: edema, full ROM, pulses intact. Absent: cyanosis, clubbing - *Routine Skin Exam Present: intact, dry, warm, wounds. Absent: cyanosis, erythema Comments: Drsg Bharathi Knee C/D/I - *Routine Neurological Exam Present: alert, oriented X3. Absent: motor deficit - Routine Psychiatric Exam Present: normal affect, normal thought process, anxious. Absent: auditory hallucinations Assessment and Plan (1) Severe sepsis Status: Acute Category: Medical Code(s): A41.9 - Sepsis, unspecified organism; R65.20 - Severe sepsis without septic shock (2) MRSA bacteremia Status: Acute Category: Medical Code(s): R78.81 - Bacteremia; B95.62 - Methicillin resistant Staphylococcus aureus infection as the cause of diseases classified elsewhere (3) Post-operative pain Status: Acute Category: Medical Code(s): G89.18 - Other acute postprocedural pain (4) Knee pain Status: Acute Qualifiers: Chronicity: acute Laterality: left Qualified Code(s): M25.562 - Pain in left knee Category: Medical Code(s): M25.569 - Pain in unspecified knee (5) Swelling of left knee joint Status: Acute Category: Medical Code(s): M25.462 - Effusion, left knee (6) Postoperative infection of knee Status: Acute Category: Medical Code(s): T81.49XA - Infection following a procedure, other surgical site, initial encounter; M00.9 - Pyogenic arthritis, unspecified (7) Total knee replacement status Status: Acute Category: Surgical Code(s): Z96.659 - Presence of unspecified artificial knee joint (8) Obesity Status: Acute Qualifiers: Obesity type: due to excess calories Obesity classification: adult class 3 (BMI >= 40) Serious obesity comorbidity presence: with serious comorbidity Body mass index: BMI 40.0-44.9 Qualified Code(s): E66.01 - Morbid (severe) obesity due to excess calories; Z68.41 - Body m
[2022-01-22 16:00] VITALS: BP 118/72; PULSE 108; RESP 16; TEMP 36.9; O2SAT 96
--- NOTE | 2022-01-22 16:41 | PC.NURSE ---
pt is alert and oriented X4. pt has complained of pain throughout shift, medicated per mar with some relief. dressing in place to left knee C/D/I. pt has been up to BSC with assistance. call light is in reach.
[2022-01-22 20:00] VITALS: BP 128/73; PULSE 109; RESP 18; TEMP 36.6; O2SAT 99
[2022-01-23] VITALS (15 sets, daily range): BP systolic 94–128; BP diastolic 59–96; PULSE 85–105; RESP 16–18; TEMP 36.6–37.1; O2SAT 94–997; BMI 42.8
--- NOTE | 2022-01-23 04:15 | PC.NURSE ---
Pt is alert and oriented x4, pt has required medication for pain around the clock, medicated per luca prn. Pt has been resting when comfortable enough. Pt is using purewick with great urine output. Pt lung sounds are clear, O2 sat >95% room air. Pt incision noted with dressing, CDI. Call light in reach and working.
[2022-01-23 06:05] LABS: Basophils # 0.1 K/mm3 (0-0.2); Basophils % 1.1 % (0.1-2.0); Eosinophils # 0.9 K/mm3 (0.0-0.4); Eosinophils % 11.1 % (0.1-12.0); Hemoglobin 7.9 g/dL (12.2-16.2); Lymphocytes # 2.3 K/mm3 (0.7-4.5); Lymphocytes % 28.6 % (10-50); Mean Corpuscular HGB Conc 31.5 g/dL (31.8-35.4); Mean Corpuscular Volume 98.4 fl (81-99); Mean Platelet Volume 8.2 fl (7.4-10.4); Monocytes # 0.4 K/mm3 (0.1-1.0); Neutrophils # 4.3 K/mm3 (1.8-7.8); Neutrophils % 54.1 % (37.0-80.0); Platelet Count 378 K/mm3 (142-424); Red Blood Count 2.54 M/mm3 (4.20-5.40); Red Cell Distribution Width 14.1 % (11.5-17.5)
[2022-01-23 06:09] LABS: Chloride 102 mmol/L (98-107); Sodium 137 mmol/L (136-145)
[2022-01-23 06:12] LABS: Blood Urea Nitrogen 11 mg/dl (7-17); Creatinine Clearance Estimated 104 mL/min (50-200); Estimated Glomerular Filt Rate 89 ml/min (>60); GFR (African American) 107 ML/MIN (>60)
[2022-01-23 06:13] LABS: Calcium 9.1 mg/dl (8.4-10.2); Carbon Dioxide 33 mmol/L (22.0-30.0); Glucose 133 mg/dl (74-100)
--- NOTE | 2022-01-23 08:25 | PC.NURSE ---
Rounded with MD, case manangement and pharmacy. pt is very tearful upon MD assessment, this is unchanged throughout hospital stay. pt is awaiting precert from insurance for rehab placement at [facility] in [place]. Pt is concerned with getting her belongings before she goes. pt hgb has gradually decreased throughout stay. MD ordered for 1 unit PRBC transfused. pt to be discharged today if precert is approved.
--- NOTE | 2022-01-23 09:13 | HMH.ACPN2 ---
Internal Medicine - PN: Subj *Date: 01/23/22 *Time: 09:13 Interval history: 51-year-old female patient resting in bed quietly with eyes open, she reports left knee pain has been To a tolerable level with as needed pain medications. Dressing is clean/dry/intact left knee. Hemoglobin this morning 7.9 we will give 1 unit of packed red blood cells. Awaiting certification for rehab discharge, discussed with patient. She is visibly anxious and emotional this morning, discussed discharge and upcoming plan of events for her she reports she is feeling better now. She does report abdomen feeling better and having 1 bowel movement last night and one this morning. Exam Vital signs and Labs for Last 24 Hours: Temp Pulse Resp BP Pulse Ox 98.3 F 104 H 16 94/60 L 96 01/23/22 04:00 01/23/22 04:00 01/23/22 04:00 01/23/22 04:00 01/23/22 04:00 Laboratory Results - last 24 hr 01/23/22 05:55: WBC 8.0, RBC 2.54 L, Hgb 7.9 L, Hct 25.0 L, MCV 98.4, MCH 31.0, MCHC 31.5 L, RDW 14.1, Plt Count 378, MPV 8.2, Neut % (Auto) 54.1, Lymph % (Auto) 28.6, [place] % (Auto) 5.0, Eos % (Auto) 11.1, Baso % (Auto) 1.1, Neut # (Auto) 4.3, Lymph # (Auto) 2.3, [place] # (Auto) 0.4, Eos # (Auto) 0.9 H, Baso # (Auto) 0.1 01/23/22 05:55: Sodium 137, Potassium 4.0, Chloride 102, Carbon Dioxide 33 H, Anion Gap 6.0, BUN 11, Creatinine 0.70, Estimated Creat Clear 104, Estimated GFR 89, Est GFR ( Amer) 107, Glucose 133 H, Calcium 9.1 01/23/22 08:50: Crossmatch (AHG) See Detail I & O for Last 24 hours: Intake & Output 01/20/22 01/21/22 01/22/22 01/23/22 23:59 23:59 23:59 23:59 Intake Total 2263 / 2263 1691 / 1691 840 / 840 1650 / 1650 Output Total 305 / 555 1955 / 2755 1550 / 1550 750 / 750 Balance 1958 / 1707 -264 / -1064 -710 / -710 900 / 900 Weight 289 lb 6 oz 299 lb 298 lb 14.4 oz 306 lb 3.2 oz Microbiology Reports for the Last 24 Hours: Microbiology 01/18/22 08:15 Blood Blood Culture - Final NO GROWTH AFTER 5 DAYS 01/18/22 08:15 Blood Blood Culture - Final NO GROWTH AFTER 5 DAYS 01/16/22 16:00 Knee,Left - Drainage - Final 01/16/22 16:00 Knee,Left - Drainage - Final 01/16/22 16:00 Knee,Left - Drainage - Final 01/16/22 16:00 Knee,Left - Drainage - Final 01/16/22 16:00 Knee,Left - Drainage - Final - Constitutional no acute distress - *Routine HEENT Exam Head: Present: normocephalic Eye: Present: EOMI ENT: Present: mucous membranes moist - *Routine Neck Exam Present: trachea midline. Absent: tracheal deviation - *Routine Respiratory Exam Present: decreased breath sounds. Absent: accessory muscle use - *Routine Cardiovascular Exam Present: RRR - *Routine Abdominal Exam Present: soft, normoactive bowel sounds. Absent: tenderness, firm - *Routine Extremities Exam Present: edema, pulses intact. Absent: cyanosis, clubbing, full ROM - *Routine Skin Exam Present: dry, wounds. Absent: intact, cyanosis, erythema Comments: Dressing to left knee clean/dry/intact - *Routine Neurological Exam Present: alert, oriented X3. Absent: motor deficit - Routine Psychiatric Exam Present: anxious. Absent: tactile hallucinations Assessment and Plan (1) Severe sepsis Status: Acute Category: Medical Code(s): A41.9 - Sepsis, unspecified organism; R65.20 - Severe sepsis without septic shock (2) MRSA bacteremia Status: Acute Category: Medical Code(s): R78.81 - Bacteremia; B95.62 - Methicillin resistant Staphylococcus aureus infection as the cause of diseases classified elsewhere (3) Post-operative pain Status: Acute Category: Medical Code(s): G89.18 - Other acute postprocedural pain (4) Knee pain Status: Acute Qualifiers: Chronicity: acute Laterality: left Qualified Code(s): M25.562 - Pain in left knee Category: Medical Code(s): M25.569 - Pain in unspecified knee (5) Swelling of left knee joint Status: A
--- NOTE | 2022-01-23 14:00 | PC.NURSE ---
completion vitals O2 sat should read 97%
--- NOTE | 2022-01-23 14:42 | DIET.NUTRFU ---
meal intake is improving as her over condition improves and d/t receiving menu with dietary preferences on it. Will continue current process to best meet her nutritional needs
--- NOTE | 2022-01-23 15:50 | HMH.DCSUM ---
General - General Admission date:: 01/16/22 Discharge date: 01/23/22 HPI HPI: 51-year-old female patient presents to the [facility] emergency department with reports of fever, increasing left knee pain, swelling and drainage from surgical incision and progressively worsening over the last 3 days. She does have an elevated white blood cell count of 18.8, CRP 385, and ESR 136. Ortho was consulted and ordered CT of left knee which revealed suspicious for developing abscess and possible areas of bleeding. She did have a total knee replacement on 12/30/2021 and was in the emergency department 4 days prior for drainage from incision site and Steri-Strips and bandage were placed over area. Blood pressure this morning 90s/50s, heart rate 105. We will give 1 L bolus of fluids due to history of congestive heart failure Ortho has seen and tentatively planned for surgery this afternoon Hospital Course Hospital Course: 51-year-old female patient presents to the [facility] emergency department with reports of fever, increasing left knee pain, swelling and drainage from surgical incision and progressively worsening over the last 3 days. She does have an elevated white blood cell count of 18.8, CRP 385, and ESR 136. Ortho was consulted and ordered CT of left knee which revealed suspicious for developing abscess and possible areas of bleeding. She did have a total knee replacement on 12/30/2021 and was in the emergency department 4 days prior for drainage from incision site and Steri-Strips and bandage were placed over area. 01/16/[address]: FINDINGS: Bones/joints: Along the anterior tibia, there is a peripherally enhancing fluid collection measuring 5.9 x 1.6 cm on image 77 series 6. Status post total knee arthroplasty. The hardware appears intact. Moderate suprapatellar knee effusion with gas and synovial thickening and enhancement. Soft tissues: In the anterior soft tissues, there is a 3 x 2.6 cm air and fluid collection with punctate densities. Abscesses most likely. While these tiny high attenuation foci could be postsurgical changes, foci of active contrast extravasation or pseudoaneurysm could produce a similar appearance. Moderate edema and soft tissue fluid in the anterior soft tissues. Edema in the anterior thigh compartment muscles may represent myositis. IMPRESSION: 1. In the anterior soft tissues, there is a 3 x 2.6 cm air and fluid collection with punctate densities. Abscess is most likely. While these tiny high attenuation foci are likely postsurgical changes, foci of active contrast extravasation or pseudoaneurysm could produce a similar appearance. 2. Along the anterior tibia, there is a peripherally enhancing fluid collection measuring 5.9 x 1.6 cm on image 77 series 6. This is suspicious for developing abscess. 3. Moderate suprapatellar knee effusion with gas and synovial thickening and enhancement. Septic arthritis versus synovitis would be most likely. Consider fluid sampling. 4. THIS REPORT CONTAINS FINDINGS THAT MAY BE CRITICAL TO PATIENT CARE. The findings were verbally communicated via telephone conference with Anila Camp at 1:44 AM EDT on 01/16/2022. The findings were acknowledged and understood. Electronically signed by West Ragland MD 51-year-old female with left total knee arthroplasty surgical site infection. She had significantly elevated inflammatory markers, purulent appearing drainage. I had a discussion with her regarding further management, recommended debridement irrigation possible poly exchange. She is amenable with the plan. We discussed the risk and benefits of surgery. Risks included but were not limited to pain, bleeding, infection, damage to adjacent structures, need for further surgery, wound healing complications, loss of limb, . Patient expressed verbal consent and writte
--- NOTE | 2022-01-23 16:10 | PC.NURSE ---
1610 - 1655: report called multiple times to [facility] in [place]. Spoke to Bere. Multiple attempts due to their facility not receiving our fax and then not all pages received. Facility would not accept report until all pages of fax were received. Multiple fax numbers attempted and used. Pt will transport by [facility]'s ambulance. The following belongings will be sent with pt: haris comforter, personal bath supplies (shampoo, conditioner, toothbrush, and toothpaste), her personal mail from home, purse, medicine bag, personal towels, pajamas, shoes, socks, laptop, cell phone with tax representative, dress, jewelry (2 necklaces, 10 rings, and a nose ring), chele bear, and a fake flower vase. Pt's significant other (Bernard) came to bedside early today to deliver all items listed above per request. He was present long enough to deliver items.
--- NOTE | 2022-01-26 15:03 | CARE MANAGER ---
Naty with signature states that patient is very depressed. We relayed that she was that way while here and that behavioral health had seen her. Other than that she is doing ok. ANITRA Rainey
== END 2022-01-23 17:30 | DRG 856 ==
LOC: ER 20:20 → 2ND 01-16 00:52
PROVIDERS: Emergency Medicine; Internal Medicine Adolescent Medicine; Nurse Practitioner Family; Orthopaedic Surgery; Admitting Provider Emergency Medicine; Emergency Provider Emergency Medicine; Visit Provider Emergency Medicine
DX: T81.49XA Infection following a procedure, other surgical site, initial encounter (principal); A41.9 Sepsis, unspecified organism; R65.20 Severe sepsis without septic shock; I42.9 Cardiomyopathy, unspecified; I50.32 Chronic diastolic (congestive) heart failure; Z68.41 Body mass index [BMI] 40.0-44.9, adult; Z79.01 Long term (current) use of anticoagulants; Z79.899 Other long term (current) drug therapy; I11.0 Hypertensive heart disease with heart failure; J44.9 Chronic obstructive pulmonary disease, unspecified; F17.210 Nicotine dependence, cigarettes, uncomplicated; Z88.8 Allergy status to other drugs, medicaments and biological substances; Z85.41 Personal history of malignant neoplasm of cervix uteri; Z86.718 Personal history of other venous thrombosis and embolism; E78.5 Hyperlipidemia, unspecified; Z95.810 Presence of automatic (implantable) cardiac defibrillator; E66.9 Obesity, unspecified; F32.A Depression, unspecified; F41.9 Anxiety disorder, unspecified
CPT/HCPCS: 27486; 27310; 36410; 36415; 36569; 71045; 73560; 73562; 80048; 80053; 80202; 82962; 83605; 83735; 85007; 85014; 85018; 85025; 85048; 85049; 85610; 85651; 85730; 86140; 86850; 87040; 87070; 87075; 87077; 87186; 87205; 93306; 97110; 97116; 97162; 97166; 97530; 99285; C1751; C1776; C9803; J0131; J0878; J1335; J2405; J3370; P9016; Q9967; U0003; U0005

== ENCOUNTER 2022-02-03 14:57 | Outpatient (CLI) | payer MEDICARE, OTHER, SELFPAY ==
[2022-02-03 15:14] VITALS: BP 92/41; PULSE 59; RESP 16; O2SAT 98
[2022-02-03 15:53] VITALS: BP 86/48; PULSE 56; RESP 16; O2SAT 99
== END 2022-02-03 16:02 | disposition home or self-care (01) ==
LOC: INF 14:59
PROVIDERS: PCP Emergency Medicine
DX: Z45.2 Encounter for adjustment and management of vascular access device (principal); B95.62 Methicillin resistant Staphylococcus aureus infection as the cause of diseases classified elsewhere
CPT/HCPCS: 96365; J0878

== ENCOUNTER 2022-02-04 14:36 | Outpatient (CLI) | payer MEDICARE, OTHER, SELFPAY ==
[2022-02-04 15:00] VITALS: BP 86/44; PULSE 80; RESP 18; TEMP 36.3; O2SAT 98
[2022-02-04 15:45] VITALS: BP 84/42; PULSE 70; RESP 18; O2SAT 98
== END 2022-02-04 15:45 | disposition home or self-care (01) ==
LOC: INF 14:37
PROVIDERS: PCP Emergency Medicine
DX: M25.562 Pain in left knee (principal); Z45.2 Encounter for adjustment and management of vascular access device
CPT/HCPCS: 96365; J0878

== ENCOUNTER 2022-02-06 13:02 | Outpatient (CLI) | payer MEDICARE, OTHER, SELFPAY ==
--- NOTE | 2022-02-06 13:03 | CARE MANAGER ---
Received phone call from Ashley at [facility] she states that they have tried numerous times to get a hold of this patient for home PT/Ot and fpc. Ashley states that they have tried multiple times to get in touch with this patient for home health and she has not answered, Ashley even stopped at patient house and no one came to the door. This patient comes to outpatient for IV antibiotics and nursing notes that she did not come yesterday. I call the patient and she answered and was tearful stating that I'm on my way to get my infusion and I think I'm gonna stop at the ER this information was forwarded to Ashley rodriguez [facility] and MICHELLE Viveros.
[2022-02-06 13:30] VITALS: BP 105/45; PULSE 66; RESP 22; TEMP 36.4; O2SAT 98
[2022-02-06 13:52] LABS: Creatine Kinase 2229 U/L (30-135)
[2022-02-06 14:10] VITALS: BP 95/45; PULSE 71; RESP 19; TEMP 36.3; O2SAT 98
== END 2022-02-06 14:10 | disposition home or self-care (01) ==
LOC: INF 13:03
PROVIDERS: PCP Emergency Medicine
DX: M25.562 Pain in left knee (principal); T81.49XA Infection following a procedure, other surgical site, initial encounter; Z96.652 Presence of left artificial knee joint
CPT/HCPCS: 82550; 96365; J0878

== ENCOUNTER 2022-02-06 14:13 | Observation (INO) | payer MEDICARE, OTHER, SELFPAY ==
[2022-02-06] VITALS (12 sets, daily range): BP systolic 93–114; BP diastolic 40–74; PULSE 64–78; RESP 14–18; TEMP 36.6–36.8; O2SAT 95–98; BMI 39.0; BMI 36.4
--- NOTE | 2022-02-06 14:29 | XR_ITS ---
FINAL REPORT CLINICAL HISTORY: pain COMPARISON: January 16, 2022 FINDINGS: LEFT KNEE: Three views of the left knee were obtained. There is no acute fracture or dislocation. Visualized joint spaces are normally aligned. There are postoperative changes from knee arthroplasty. There is a small joint effusion. IMPRESSION: Postoperative changes with no acute bony abnormality. Small joint effusion. Reviewed, Interpreted and Dictated by Nicolas Malhotra III, MD Transcribed by Dedra Green Authenticated and [facility]
--- NOTE | 2022-02-06 14:38 | HMH.EDGENADL ---
ED Disposition Clinical Impression: Knee pain Disposition: Admitted As Inpatient Condition on Discharge: Fair Referrals: Khai Stoddard MD [Primary Care Provider] - - Critical Care Critical Care Time: No Attestation: On , the high probability of a clinically significant, sudden or life threatening deterioration of the following system(s) required my full and direct attention, intervention and personal management. The time I documented below is in addition to time spent performing reported procedures but includes the following listed in this critical care notation. Medical Decision Making - Raji Inquiry Pt receiving controlled substance: No Vital Signs: 02/06/22 14:15 02/06/22 15:30 02/06/22 15:43 Temperature 98 F Temperature Source Oral Pulse Rate 71 Pulse Rate [Radial] 72 Respiratory Rate 16 16 Blood Pressure 111/52 L 111/42 L Blood Pressure [Right Arm] 106/70 L Blood Pressure Mean 71 Blood Pressure Mean [Right Arm] 82 Blood Pressure Position Sitting Blood Pressure Position [Right Arm] Sitting 02 Sat by Pulse Oximetry 98 96 Oxygen Delivery Method Room Air Room Air 02/06/22 16:15 02/06/22 16:35 02/06/22 17:00 Temperature Temperature Source Pulse Rate 67 65 64 Pulse Rate [Radial] Respiratory Rate 16 14 Blood Pressure 96/51 L 93/54 L 112/40 L Blood Pressure [Right Arm] Blood Pressure Mean 66 67 64 Blood Pressure Mean [Right Arm] Blood Pressure Position Blood Pressure Position [Right Arm] 02 Sat by Pulse Oximetry 95 96 96 Oxygen Delivery Method - Lab Data Lab Results 02/06/22 14:45: WBC 11.6 H, RBC 3.13 L, Hgb 9.3 L, Hct 30.0 L, MCV 95.8, MCH 29.5, MCHC 30.8 L, RDW 14.0, Plt Count 578 H, MPV 8.1, Neut % (Auto) 59.1, Lymph % (Auto) 28.9, [place] % (Auto) 5.1, Eos % (Auto) 6.0, Baso % (Auto) 0.9, Neut # (Auto) 6.8, Lymph # (Auto) 3.3, [place] # (Auto) 0.6, Eos # (Auto) 0.7 H, Baso # (Auto) 0.1 02/06/22 14:45: Sodium 141, Potassium 5.4 H, Chloride 109 H, Carbon Dioxide 26, Anion Gap 11.4, BUN 28 H, Creatinine 1.20 H, Estimated Creat Clear 112, Estimated GFR 48 L, Est GFR ( Amer) 58 L, Glucose 131 H, Calcium 11.5 H, Total Bilirubin 0.4, AST 93 H, ALT 65, Alkaline Phosphatase 481 H, C-Reactive Protein 35.9 H, Total Protein 8.3 H D, Albumin 4.1, Globulin 4.2 H, Albumin/Globulin Ratio 1.0 L 02/06/22 14:45: ESR > 140 H 02/06/22 14:45: Lactate 1.3 Result diagrams: 02/06/22 14:45 02/06/22 14:45 Orders (Tests/Meds): ED MEDICATIONS Discontinued Medications Generic Name Dose Route Start Last Admin Trade Name Freq PRN Reason Stop Dose Admin Hydromorphone HCl 0.5 mg 02/06/22 14:36 02/06/22 14:44 Hydromorphone 4 Mg/Ml Syringe IV 02/06/22 14:37 0.5 mg ONCE ONE Administration Hydromorphone HCl 0.5 mg 02/06/22 15:45 02/06/22 15:47 Hydromorphone 2mg/Ml Syringe IV 02/06/22 15:46 0.5 mg ONCE ONE Administration Lactated Ringer's 500 mls @ 999 mls/hr 02/06/22 15:45 02/06/22 15:39 Lactated Ringer's 1000 Ml Bag IV 02/06/22 16:15 999 mls/hr .Q31M ERVIN Administration Ondansetron HCl 4 mg 02/06/22 15:36 02/06/22 15:38 Ondansetron 4mg/2ml Vial IV 02/06/22 15:37 4 mg ONCE ONE Administration ORDERS Category Date Time Status Rapid PCR Covid and Flu A/B Stat Lab 02/06/22 16:35 Received Blood Culture Stat Micro 02/06/22 14:45 Ordered Medical Decision Narrative: In summary patient is a 51-year-old female with past medical history described above who presents emergency department for severe progressive knee pain, swelling, fever in the setting of left knee replacement with subsequent infection status post washout on IV daptomycin outpatient. Patient is hemodynamically stable upon arrival, afebrile, appearing in significant pain. Differential diagnosis includes recurrent intra-articular infection, among others. Patient has recently received coverage with daptomycin. Work-up will be conducted with hematol
[2022-02-06 15:13] LABS: Basophils # 0.1 K/mm3 (0-0.2); Basophils % 0.9 % (0.1-2.0); Eosinophils # 0.7 K/mm3 (0.0-0.4); Hemoglobin 9.3 g/dL (12.2-16.2); Lymphocytes # 3.3 K/mm3 (0.7-4.5); Lymphocytes % 28.9 % (10-50); Mean Corpuscular HGB Conc 30.8 g/dL (31.8-35.4); Mean Corpuscular Hemoglobin 29.5 pg (27.0-31.2); Mean Corpuscular Volume 95.8 fl (81-99); Mean Platelet Volume 8.1 fl (7.4-10.4); Monocytes # 0.6 K/mm3 (0.1-1.0); Monocytes % 5.1 % (1.7-9.3); Neutrophils # 6.8 K/mm3 (1.8-7.8); Neutrophils % 59.1 % (37.0-80.0); Platelet Count 578 K/mm3 (142-424); Red Blood Count 3.13 M/mm3 (4.20-5.40); White Blood Count 11.6 K/mm3 (4.8-10.8)
[2022-02-06 15:29] LABS: Lactic Acid 1.3 mmol/L (0.7-2.1)
[2022-02-06 15:36] LABS: Chloride 109 mmol/L (98-107)
[2022-02-06 15:37] LABS: Potassium 5.4 mmoL/L (3.5-5.1); Sodium 141 mmol/L (136-145)
[2022-02-06 15:39] LABS: Alanine Aminotransferase 65 U/L (12-78); Aspartate Amino Transferase 93 U/L (14-36); Blood Urea Nitrogen 28 mg/dl (7-17); Creatinine Clearance Estimated 112 mL/min (50-200); Estimated Glomerular Filt Rate 48 ml/min (>60); GFR (African American) 58 ML/MIN (>60)
[2022-02-06 15:40] LABS: Albumin Level 4.1 g/dl (3.5-5.0); Alkaline Phosphatase 481 U/L (38-126); Bilirubin,Total 0.4 mg/dl (0.2-1.3); Calcium 11.5 mg/dl (8.4-10.2); Globulin 4.2 g/dL (1.3-3.2); Glucose 131 mg/dl (74-100); Total Protein,Serum 8.3 g/dl (6.3-8.2)
[2022-02-06 15:45] LABS: C-Reactive Protein 35.9 mg/L (0-4)
[2022-02-06 16:12] LABS: Anion Gap 11.4 mEq/L (5-15); Carbon Dioxide 26 mmol/L (22.0-30.0)
--- NOTE | 2022-02-06 16:12 | PC.NURSE ---
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
[2022-02-06 16:20] LABS: Erythrocyte Sedimentation Rate > 140 mm/hr (0-20)
--- NOTE | 2022-02-06 16:21 | PC.NURSE ---
DR ALEJO SPOKE WITH ORTHO THEY DID NOT WANT PT ADMITTED , DR ECTOR BECKWITH
[2022-02-06 17:11] LABS: Coronavirus 19, PCR Not Detected (NotDetected); Influenza A, PCR Not Detected (NotDetected); Influenza B, PCR Not Detected (NotDetected)
--- NOTE | 2022-02-06 17:14 | PC.NURSE ---
dr mcnally returned call
--- NOTE | 2022-02-06 18:31 | PC.NURSE ---
report called to floor
--- NOTE | 2022-02-06 19:37 | PC.NURSE ---
PT ARRIVED TO FLOOR VIA W/C FROM ED W/STAFF @ 193
--- NOTE | 2022-02-06 20:51 | PC.NURSE ---
[facility] contacted about Jilliansto 49/ not being available, suggested giving 2 of the for the evening dose
[2022-02-07 04:00] VITALS: BP 102/59; PULSE 69; RESP 18; TEMP 36.8; O2SAT 97
--- NOTE | 2022-02-07 04:16 | PC.NURSE ---
pt has rested intermittently, has complained of pain in left leg and back 2 times this shift and was treated per MAR, left leg with surgical incision, TYREL, remains on room air with O2 sats > 90%, pt did experience some anxiety this shift when told about surgical consult, pt educated on the importance of consult
[2022-02-07 04:59] VITALS: BMI 36.5
[2022-02-07 07:12] LABS: Chloride 107 mmol/L (98-107)
[2022-02-07 07:14] LABS: Potassium 4.6 mmoL/L (3.5-5.1); Sodium 141 mmol/L (136-145)
[2022-02-07 07:15] LABS: Blood Urea Nitrogen 22 mg/dl (7-17); Creatinine Clearance Estimated 126 mL/min (50-200); Estimated Glomerular Filt Rate 59 ml/min (>60); GFR (African American) 71 ML/MIN (>60)
[2022-02-07 07:16] LABS: Anion Gap 9.6 mEq/L (5-15); Carbon Dioxide 29 mmol/L (22.0-30.0)
[2022-02-07 07:17] LABS: Glucose 115 mg/dl (74-100)
[2022-02-07 07:21] LABS: C-Reactive Protein 29.1 mg/L (0-4)
[2022-02-07 07:26] LABS: Basophils # 0.1 K/mm3 (0-0.2); Basophils % 0.9 % (0.1-2.0); Eosinophils # 0.6 K/mm3 (0.0-0.4); Eosinophils % 8.6 % (0.1-12.0); Hematocrit 31.6 % (37.0-47.0); Hemoglobin 9.6 g/dL (12.2-16.2); Lymphocytes # 2.8 K/mm3 (0.7-4.5); Lymphocytes % 38.8 % (10-50); Mean Corpuscular HGB Conc 30.5 g/dL (31.8-35.4); Mean Corpuscular Hemoglobin 29.2 pg (27.0-31.2); Mean Corpuscular Volume 95.9 fl (81-99); Mean Platelet Volume 8.8 fl (7.4-10.4); Monocytes # 0.5 K/mm3 (0.1-1.0); Monocytes % 7.3 % (1.7-9.3); Neutrophils # 3.2 K/mm3 (1.8-7.8); Neutrophils % 44.4 % (37.0-80.0); Platelet Count 424 K/mm3 (142-424); Red Blood Count 3.29 M/mm3 (4.20-5.40); Red Cell Distribution Width 13.9 % (11.5-17.5); White Blood Count 7.2 K/mm3 (4.8-10.8)
[2022-02-07 07:36] VITALS: BP 112/77; PULSE 67; RESP 14; TEMP 36.7; O2SAT 95
--- NOTE | 2022-02-07 08:09 | HMH.PHAVTE ---
[facility] Pharmacy VTE Monitoring - Patient Demographics Admission date: 02/06/22 Report Date: 02/07/22 Time: 08:09 Allergies/Adverse Reactions: Patient Allergies Penicillins Allergy (Severe, Verified 02/06/22 21:21) Swelling of Lip/Tongue/Throat clindamycin Allergy (Intermediate, Verified 02/06/22 21:21) Rash doxycycline Allergy (Intermediate, Verified 02/06/22 21:21) Unknown allergy reaction ciprofloxacin Allergy (Verified 02/06/22 21:21) Nausea Height: 1.8 m Weight: 118.444 kg Patient Problems: Current Active Problems Knee pain (Acute) - VTE Risk Labs: VTE Related Lab Results Hgb 9.6 g/dL (12.2-16.2) L 02/07/22 06:40 Hct 31.6 % (37.0-47.0) L 02/07/22 06:40 Plt Count 424 K/mm3 (142-424) D 02/07/22 06:40 BUN 22 mg/dl (7-17) H 02/07/22 06:40 Creatinine 1.00 mg/dl (0.52-1.04) 02/07/22 06:40 Estimated Creat Clear 126 mL/min (50-200) 02/07/22 06:40 Clinical Trial Participant: No - Prophylaxis VTE Prophylaxis Ordered?: Yes Types of VTE Prophylaxis: Pharmacological Pharmacologic Type: Other (xarelto)
[2022-02-07 08:30] LABS: Creatine Kinase 1164 U/L (30-135)
--- NOTE | 2022-02-07 08:47 | PC.NURSE ---
courtesy Tech; Checked on pt, no requests at this time.
[2022-02-07 10:58] VITALS: BP 120/61; PULSE 70
--- NOTE | 2022-02-07 11:48 | HMH.PHACONS ---
- Pharmacy Consult Date: 02/07/22 Time: 11:48 Referring provider: DR. NASCIMENTO Reason for Consult:: VANCOMYCIN DOSING Allergies and ADEs:: Allergies Allergy/AdvReac Type Severity Reaction Status Date / Time Penicillins Allergy Severe Swelling Verified 02/06/22 21:21 of Lip/Tongue/Throat clindamycin Allergy Intermediate Rash Verified 02/06/22 21:21 doxycycline Allergy Intermediate Unknown Verified 02/06/22 21:21 allergy reaction ciprofloxacin Allergy Nausea Verified 02/06/22 21:21 Home Medications:: Home Medications Medication Instructions Recorded Confirmed Type cyclosporine 0.05 % eye drops in a 1 drp OPHTHALMIC Q12H 10/29/20 02/06/22 History dropperette ondansetron HCl 4 mg tablet 4 mg PO TID PRN #30 tab 10/31/21 02/06/22 Rx Atorvastatin Calcium [Lipitor 40mg 40 mg PO HS 12/29/21 02/06/22 History Tab] Famotidine [Acid Arabic Professor] 20 mg PO BID 12/29/21 02/06/22 History Fluticasone Propionate 1 spray NS BID 12/29/21 02/06/22 History Gabapentin 600 mg PO TID 12/29/21 02/06/22 History Levocetirizine Dihydrochloride 5 mg PO DAILY 12/29/21 02/06/22 History Levothyroxine Sodium 200 mcg PO DAILYDM 12/29/21 02/06/22 History [Levothyroxine 200mcg (0.2mg) Tab] Mesalamine 1,600 mg PO TID 12/29/21 02/06/22 History Metoprolol Succinate [Metoprolol 150 mg PO DAILY 12/29/21 02/06/22 History Succinate 100mg Tablet*] Nitroglycerin See Rx Instructions .ROUTE .COMPLEX 12/29/21 02/06/22 History Oxybutynin Chloride 5 mg PO BID 12/29/21 02/06/22 History Rivaroxaban [Xarelto 20mg Tablet*] 20 mg PO QPMWITHMEAL 12/29/21 02/06/22 History Sacubitril/Valsartan [Entresto 49 1 tab PO BID 12/29/21 02/06/22 History mg-51 mg Tablet] Spironolactone [Spironolactone 25 mg PO DAILY 12/29/21 02/06/22 History 25mg Tablet] Torsemide [Demadex] 20 mg PO DAILY 12/29/21 02/06/22 History clonazePAM [Klonopin 1mg tablet] 1 mg PO TID 12/29/21 02/06/22 History Oxycodone HCl/Acetaminophen 1 tab PO QIDP PRN 12/30/21 02/06/22 History [Oxycodone-Acetaminophn 7.5-325] Albuterol Sulfate [Albuterol 2 puff IH Q4-6H PRN 01/16/22 02/06/22 History Sulfate Hfa] DAPTOmycin [Cubicin 500mg vial] 1,000 mg IV Q24H 02/03/22 02/06/22 History Height: 1.8 m Weight: 118.444 kg Laboratory Results:: Laboratory Results - last 24 hr 02/06/22 14:45: WBC 11.6 H, RBC 3.13 L, Hgb 9.3 L, Hct 30.0 L, MCV 95.8, MCH 29.5, MCHC 30.8 L, RDW 14.0, Plt Count 578 H, MPV 8.1, Neut % (Auto) 59.1, Lymph % (Auto) 28.9, [place] % (Auto) 5.1, Eos % (Auto) 6.0, Baso % (Auto) 0.9, Neut # (Auto) 6.8, Lymph # (Auto) 3.3, [place] # (Auto) 0.6, Eos # (Auto) 0.7 H, Baso # (Auto) 0.1 02/06/22 14:45: Sodium 141, Potassium 5.4 H, Chloride 109 H, Carbon Dioxide 26, Anion Gap 11.4, BUN 28 H, Creatinine 1.20 H, Estimated Creat Clear 112, Estimated GFR 48 L, Est GFR ( Amer) 58 L, Glucose 131 H, Calcium 11.5 H, Total Bilirubin 0.4, AST 93 H, ALT 65, Alkaline Phosphatase 481 H, C-Reactive Protein 35.9 H, Total Protein 8.3 H D, Albumin 4.1, Globulin 4.2 H, Albumin/Globulin Ratio 1.0 L 02/06/22 14:45: ESR > 140 H 02/06/22 14:45: Lactate 1.3 02/06/22 16:35: SARS-CoV-2 (PCR) Not detected, Influenza A Untype (PCR) Not detected, Influenza Type B (PCR) Not detected 02/07/22 06:40: WBC 7.2 D, RBC 3.29 L, Hgb 9.6 L, Hct 31.6 L, MCV 95.9, MCH 29.2, MCHC 30.5 L, RDW 13.9, Plt Count 424 D, MPV 8.8, Neut % (Auto) 44.4, Lymph % (Auto) 38.8, [place] % (Auto) 7.3, Eos % (Auto) 8.6, Baso % (Auto) 0.9, Neut # (Auto) 3.2, Lymph # (Auto) 2.8, [place] # (Auto) 0.5, Eos # (Auto) 0.6 H, Baso # (Auto) 0.1 02/07/22 06:40: Sodium 141, Potassium 4.6, Chloride 107, Carbon Dioxide 29, Anion Gap 9.6, BUN 22 H, Creatinine 1.00, Estimated Creat Clear 126, Estimated GFR 59, Est GFR ( Amer) 71 D, Glucose 115 H, Calcium 11.0 H, C-Reactive Protein 29.1 H 02/07/22 06:40: Total Creatine Kinase 1164 H* D Medical History: Reports:: Aneurysm, Anxiety, Arrhythmia, Cancer, Cardiomyopathy, Congestive Heart Failure, Chroni
--- NOTE | 2022-02-07 13:35 | HMH.HP ---
*Admission Date: 02/06/22 *Chief complaint: pain in knee, postoperative infection *History of present illness: Patient is a 51-year-old female with past medical history of CHF status post defibrillator placement requiring intermittent diuresis, left total knee replacement on 12-30-2021, subsequent intra-articular abscess status post revision left knee polyethylene liner exchange, left knee arthrotomy, debridement, and irrigation performed by Dr. Lopez on 01/16/2022 currently on IV daptomycin infusions. Who presents as a transfer patient from infusion clinic for evaluation of severe left knee pain. Patient states that after discharge she went to physical therapy where ultimately she was deemed appropriate for discharge home and was able to bear weight as tolerated with assistance of a walker. Over the last 3 days patient has had progressive debilitating pain with progressive limited range of motion and subjective swelling of her left knee causing her to ultimately present here for continued evaluation. Patient has had fevers at home T-max unknown. There is associated nausea without vomiting. No other acute complaints at this time. In summary patient is a 51-year-old female with past medical history described above who presents emergency department for severe progressive knee pain, swelling, fever in the setting of left knee replacement with subsequent infection status post washout on IV daptomycin outpatient. Patient is hemodynamically stable upon arrival, afebrile, appearing in significant pain. Differential diagnosis includes recurrent intra-articular infection, among others. Patient has recently received coverage with daptomycin. Work-up will be conducted with hematologic labs, blood cultures x2, plain film of the left knee. Initial interventions include Zofran and Dilaudid. Work-up is reviewed by me, hematologic labs remarkable for elevated creatinine, worsening GFR, no actionable electrolyte abnormalities, downtrending CRP. The case was discussed with orthopedics they recommend no acute surgical intervention. It is currently my opinion that patient is unsafe to be discharged home, the case was discussed with internal medicine they will admit the patient for observation at this time. Patient will be continued on daptomycin. (above per ER narrative) Patient relays positive feedback from physical therapy. Elevated CK jose the notice of clinical pharmacist, who suggested vancomycin in place of daptomycin. Patient relays that current dose of dilaudid is ineffective for controlling her pain. Comorbid cardiomyopathy with AICD. Transfused at last admission, HGB was 9.6 today. CRP is noted to be trending down. Patient remains anxious and tearful. Noted to have marked anxiety pertaining to her knee. [facility] History Medical History: Reports:: Aneurysm, Anxiety, Arrhythmia, Cancer, Cardiomyopathy, Congestive Heart Failure, Chronic Obstructive Pulmonary Disease (COPD), Coronary Artery Disease, Deep Vein Thrombosis, Hyperlipidemia, Hypertension, Internal Pacemaker, Palpitations, Pulmonary Embolism Denies:: Diabetes Mellitus Type 1, Diabetes Mellitus Type 2, MRSA, Seizures *Have you ever received a pneumonia vaccine?: Yes *Have you received a flu vaccine this season?: No Other Medical History: Reports: Hypothyroidism, Thyroid Disease. Denies: Blood Transfusion Reaction Laterality Cases: Left: Arthroscopy Knee, Lumpectomy Other Surgeries: Yes: Cardiac Catheterization, Cholecystectomy, Colonoscopy, Hysterectomy-Total, Pacemaker Amputation: No Fractures: Yes (left leg/ankle pins and rods) - *Social History Smoking Status: Former smoker Tobacco Type: cigarettes # Packs/Day (cigarettes): 1 Alcohol Intake: never Alcohol Intake Frequency:: holidays/special occasions only Substance Use Type: marijuana *Occupational Status:: unemployed Housing: house Household Members: significant other *Travel in the last 8 weeks: None - Psychiatric History Ps
[2022-02-07 15:37] VITALS: BP 112/64; PULSE 71; RESP 16; TEMP 36.8; O2SAT 95
--- NOTE | 2022-02-07 17:59 | PC.WOUNDNOTE ---
left knee incision left knee incision
--- NOTE | 2022-02-07 18:14 | PC.NURSE ---
pt has done well today. she has ambulated multiple times independentky with walker to bathroom and chair. Tolerated her diet well for dinner. reports pain has been managed with iv dilaudid. PICC c/d/i
[2022-02-07 20:00] VITALS: BP 110/68; PULSE 74; RESP 16; TEMP 36.8; O2SAT 94
[2022-02-08 04:00] VITALS: BP 105/68; PULSE 65; RESP 16; TEMP 36.9; O2SAT 96
--- NOTE | 2022-02-08 04:03 | PC.NURSE ---
Pt alert and oriented x 4. Pt has slept majority of my shift. Pt ambulating to bathroom independently w/ walker. Pt has c/o of L leg and back pain multiple times this shift. Medicated per MAR with adequate relief. PICC to R arm is c/d/i. Pt has a surgical incision to L knee, BEATER HEAD. No other needs voiced at this time. Call light in reach.
[2022-02-08 05:00] VITALS: BMI 36.5
--- NOTE | 2022-02-08 05:30 | HMH.ORTHPN ---
Subjective Date: 02/08/22 Time: 05:30 Interval history: Readmitted Wednesday with worsening knee pain. She's been ambulating some around the room and to bathroom. PN: Obj Ex Vital signs: Temp Pulse Resp BP Pulse Ox 98.4 F 65 16 105/68 L 96 02/08/22 04:00 02/08/22 04:00 02/08/22 04:00 02/08/22 04:00 02/08/22 04:00 - Constitutional mild distress - Routine HEENT Exam Head: Present: normocephalic, atraumatic Eye: Present: EOMI ENT: Present: mucous membranes moist - Routine Neck Exam Present: supple - Routine Respiratory Exam Absent: respiratory distress - Routine Cardiovascular Exam Present: RRR - Routine Abdominal Exam Present: soft. Absent: distended - Routine Extremities Exam Absent: calf tenderness - Detailed Lower Extremity Exam Knee: Left wound (Left knee incision well approximated. She has a small scab, subcentimeter, middle third of the incision. No drainage. No erythema, warmth compared to the contralateral side. Range of motion from approximately 0 to 90 degrees. Palpable dorsalis pedis/posterior tibial pulse. Sensation intact to light touch deep peroneal, superficial peroneal, tibial, sural, saphenous nerve distribution. 5/5 motor function intact to extensor hallicus longus, flexor hallicus longus, tibialis anterior, gastroc/soleus, posterior tibialis, foot eversion.) Progress Note: A&P (1) Knee pain Status: Acute (2) CHF (congestive heart failure) Status: Chronic (3) Cardiomyopathy Status: Chronic (4) Knee arthropathy Status: Acute (5) Obesity Status: Chronic (6) Post-operative pain Status: Chronic (7) Postoperative infection of knee Status: Acute (8) Total knee replacement status Status: Chronic (9) Automatic implantable cardioverter-defibrillator in situ Status: Chronic (10) NICM (nonischemic cardiomyopathy) Status: Chronic (11) Abnormal creatine kinase level Status: Acute Assessment and Plan for All Diagnoses:: 51-year-old female with left knee pain following left total knee arthroplasty with prosthetic joint infection status post debridement irrigation with polyethylene insert exchange. We will plan to continue trending CRP. If CRP trends upward, would consider repeat knee aspiration. If joint aspirate grew positive cultures or cell count concerning for prosthetic joint infection, she would likely need two-stage revision with antibiotic spacer placement. If that were the case, I think she would be best served at a tertiary referral center with joint recon specialist. For now, plan to continue physical therapy, pain control, trend CRP.
[2022-02-08 08:00] VITALS: BP 115/64; PULSE 64; RESP 15; TEMP 36.8; O2SAT 94
[2022-02-08 08:55] VITALS: BMI 36.5
--- NOTE | 2022-02-08 10:35 | HMH.ACPN2 ---
Internal Medicine - PN: Subj *Date: 02/08/22 *Time: 10:35 Interval history: relays less pain generated by left knee has been up and ambulating ortho note reviewed will measure sequential crp Exam Vital signs and Labs for Last 24 Hours: Temp Pulse Resp BP Pulse Ox 98.2 F 64 15 115/64 94 L 02/08/22 08:00 02/08/22 08:00 02/08/22 08:00 02/08/22 08:00 02/08/22 08:00 I & O for Last 24 hours: Intake & Output 02/05/22 02/06/22 02/07/22 02/08/22 23:59 23:59 23:59 23:59 Intake Total 120 / 120 750 / 750 Output Total 500 / 500 Balance -380 / -380 750 / 750 Weight 260 lb 8 oz 261 lb 2 oz 261 lb 1.954 oz - Constitutional obese, chronically ill appearing - *Routine HEENT Exam Head: Present: normocephalic Eye: Present: EOMI, PERRL ENT: Present: mucous membranes moist - *Routine Neck Exam Present: supple. Absent: lymphadenopathy - *Routine Respiratory Exam Present: CTA bilaterally - *Routine Cardiovascular Exam Present: RRR - *Routine Abdominal Exam Present: soft, normoactive bowel sounds. Absent: tenderness - *Routine Extremities Exam Present: tenderness - *Routine Skin Exam Present: warm. Absent: rash - *Routine Neurological Exam Present: alert, oriented X3 Assessment and Plan (1) Knee pain Status: Acute Category: Medical Code(s): M25.569 - Pain in unspecified knee (2) CHF (congestive heart failure) Status: Chronic Category: Medical Code(s): I50.9 - Heart failure, unspecified (3) Cardiomyopathy Status: Chronic Qualifiers: Cardiomyopathy type: unspecified Qualified Code(s): I42.9 - Cardiomyopathy, unspecified Category: Medical Code(s): I42.9 - Cardiomyopathy, unspecified (4) Knee arthropathy Status: Acute Category: Medical Code(s): M17.10 - Unilateral primary osteoarthritis, unspecified knee (5) Obesity Status: Chronic Qualifiers: Obesity type: due to excess calories Obesity classification: adult class 3 (BMI >= 40) Serious obesity comorbidity presence: with serious comorbidity Body mass index: BMI 40.0-44.9 Qualified Code(s): E66.01 - Morbid (severe) obesity due to excess calories; Z68.41 - Body mass index [BMI] 40.0-44.9, adult Category: Medical Code(s): E66.9 - Obesity, unspecified (6) Post-operative pain Status: Chronic Category: Medical Code(s): G89.18 - Other acute postprocedural pain (7) Postoperative infection of knee Status: Acute Category: Medical Code(s): T81.49XA - Infection following a procedure, other surgical site, initial encounter; M00.9 - Pyogenic arthritis, unspecified (8) Total knee replacement status Status: Chronic Category: Surgical Code(s): Z96.659 - Presence of unspecified artificial knee joint (9) Automatic implantable cardioverter-defibrillator in situ Status: Chronic Category: Medical Code(s): Z95.810 - Presence of automatic (implantable) cardiac defibrillator (10) NICM (nonischemic cardiomyopathy) Status: Chronic Category: Medical Code(s): I42.8 - Other cardiomyopathies (11) Abnormal creatine kinase level Status: Acute Category: Medical Code(s): R74.8 - Abnormal levels of other serum enzymes - Assessment and plan all Dx Assessment and Plan for all problems:: will continue antibiotic coverage and follow with ortho sequential crp to determine trend and gauge efficacy of treatment continue to mobilize stay mindful of cardiomyopathy, continue cardiac regimen
[2022-02-08 11:31] LABS: C-Reactive Protein 30.3 mg/L (0-4)
[2022-02-08 16:00] VITALS: BP 118/73; PULSE 62; RESP 15; TEMP 36.4; O2SAT 96
--- NOTE | 2022-02-08 18:06 | PC.NURSE ---
pt reports increased pain to her leg today. pulses good and edema is unchanged. She asks for pain medication roughly every two hours. I educated her on prn medications. She reports poor appetite and generalized weakness. MD notified of lab results.
[2022-02-08 20:00] VITALS: BP 110/68; PULSE 64; RESP 16; TEMP 36.9; O2SAT 96
[2022-02-08 23:21] LABS: Vancomycin,Trough 30.2 ug/mL (5.0-10.0)
--- NOTE | 2022-02-08 23:23 | PC.NURSE ---
Bi watts reported to Norman from [facility]. Per pharmacist - hold bi. He will d/c order.
[2022-02-09 03:55] VITALS: BP 90/50; PULSE 64; RESP 16; TEMP 36.6; O2SAT 92
[2022-02-09 05:00] VITALS: BMI 36.8
--- NOTE | 2022-02-09 05:09 | PC.NURSE ---
Pt alert and oriented x 4, but lethargic. Pt has slept majority of this shift. Medicating per AUG for pain. R PICC drsg and injection cap changed this shift. Dressing c/d/i. No redness, swelling, or drainage noted to PICC site. Surgical incision to L knee is [employer]. Good pulses to BLE. No other needs voiced at this time. Call light in reach.
--- NOTE | 2022-02-09 06:28 | HMH.ORTHPN ---
Subjective Date: 02/09/22 Time: 06:28 Interval history: Pain persistent, difficulty with weight bearing. PN: Obj Ex Vital signs: Temp Pulse Resp BP Pulse Ox 98 F 64 16 90/50 L 92 L 02/09/22 03:55 02/09/22 03:55 02/09/22 03:55 02/09/22 03:55 02/09/22 03:55 - Constitutional mild distress - Routine HEENT Exam Head: Present: normocephalic, atraumatic Eye: Present: EOMI ENT: Present: mucous membranes moist - Routine Neck Exam Present: supple - Routine Cardiovascular Exam Present: RRR - Routine Abdominal Exam Present: soft. Absent: distended - Detailed Lower Extremity Exam Knee: Left wound (Left knee wound well approximated. She had scant oozing from her superior lateral drain site overnight. Palpable dorsalis pedis/posterior tibial pulse. Sensation intact to light touch deep peroneal, superficial peroneal, tibial, sural, saphenous nerve distribution. 5/5 motor function intact to extensor hallicus longus, flexor hallicus longus, tibialis anterior, gastroc/soleus, posterior tibialis, foot eversion.) Progress Note: A&P (1) Knee pain Status: Acute (2) CHF (congestive heart failure) Status: Chronic (3) Cardiomyopathy Status: Chronic (4) Knee arthropathy Status: Acute (5) Obesity Status: Chronic (6) Post-operative pain Status: Chronic (7) Postoperative infection of knee Status: Acute (8) Total knee replacement status Status: Chronic (9) Automatic implantable cardioverter-defibrillator in situ Status: Chronic (10) NICM (nonischemic cardiomyopathy) Status: Chronic (11) Abnormal creatine kinase level Status: Acute Assessment and Plan for All Diagnoses:: 51-year-old female with left knee pain status post debridement and irrigation, polyethylene liner exchange. CRP 29-30 over the past 2 days. I plan to reach out to recon specialist at regarding further management. We will also discussed with her infectious disease specialist, Dr. Hogue. For now, continue antibiotics, trend CRP.
[2022-02-09 07:10] LABS: Anion Gap 12.4 mEq/L (5-15); Blood Urea Nitrogen 33 mg/dl (7-17); Calcium 11.6 mg/dl (8.4-10.2); Carbon Dioxide 27 mmol/L (22.0-30.0); Chloride 105 mmol/L (98-107); Creatine Kinase 250 U/L (30-135); Creatinine Clearance Estimated 79 mL/min (50-200); Estimated Glomerular Filt Rate 34 ml/min (>60); GFR (African American) 41 ML/MIN (>60); Glucose 131 mg/dl (74-100); Potassium 4.4 mmoL/L (3.5-5.1); Sodium 140 mmol/L (136-145)
[2022-02-09 07:53] VITALS: BP 92/53; PULSE 64; RESP 14; TEMP 36.7; O2SAT 94
[2022-02-09 08:30] LABS: Vancomycin,Trough 23.9 ug/mL (5.0-10.0)
--- NOTE | 2022-02-09 08:35 | HMH.DCSUM ---
General - General Admission date:: 02/06/22 Discharge date: 02/09/22 HPI HPI: Patient is a 51-year-old female with past medical history of CHF status post defibrillator placement requiring intermittent diuresis, left total knee replacement on 12-30-2021, subsequent intra-articular abscess status post revision left knee polyethylene liner exchange, left knee arthrotomy, debridement, and irrigation performed by Dr. Lopez on 01/16/2022 currently on IV daptomycin infusions. Who presents as a transfer patient from infusion clinic for evaluation of severe left knee pain. Patient states that after discharge she went to physical therapy where ultimately she was deemed appropriate for discharge home and was able to bear weight as tolerated with assistance of a walker. Over the last 3 days patient has had progressive debilitating pain with progressive limited range of motion and subjective swelling of her left knee causing her to ultimately present here for continued evaluation. Patient has had fevers at home T-max unknown. There is associated nausea without vomiting. No other acute complaints at this time. In summary patient is a 51-year-old female with past medical history described above who presents emergency department for severe progressive knee pain, swelling, fever in the setting of left knee replacement with subsequent infection status post washout on IV daptomycin outpatient. Patient is hemodynamically stable upon arrival, afebrile, appearing in significant pain. Differential diagnosis includes recurrent intra-articular infection, among others. Patient has recently received coverage with daptomycin. Work-up will be conducted with hematologic labs, blood cultures x2, plain film of the left knee. Initial interventions include Zofran and Dilaudid. Work-up is reviewed by me, hematologic labs remarkable for elevated creatinine, worsening GFR, no actionable electrolyte abnormalities, downtrending CRP. The case was discussed with orthopedics they recommend no acute surgical intervention. It is currently my opinion that patient is unsafe to be discharged home, the case was discussed with internal medicine they will admit the patient for observation at this time. Patient will be continued on daptomycin. (above per ER narrative) Patient relays positive feedback from physical therapy. Elevated CK jose the notice of clinical pharmacist, who suggested vancomycin in place of daptomycin. Patient relays that current dose of dilaudid is ineffective for controlling her pain. Comorbid cardiomyopathy with AICD. Transfused at last admission, HGB was 9.6 today. CRP is noted to be trending down. Patient remains anxious and tearful. Noted to have marked anxiety pertaining to her knee. Hospital Course Hospital Course: Patient is a 51-year-old female with past medical history of CHF status post defibrillator placement requiring intermittent diuresis, left total knee replacement on 12-30-2021, subsequent intra-articular abscess status post revision left knee polyethylene liner exchange, left knee arthrotomy, debridement, and irrigation performed by Dr. Lopez on 01/16/2022 currently on IV daptomycin infusions. Who presents as a transfer patient from infusion clinic for evaluation of severe left knee pain. Patient states that after discharge she went to physical therapy where ultimately she was deemed appropriate for discharge home and was able to bear weight as tolerated with assistance of a walker. Over the last 3 days patient has had progressive debilitating pain with progressive limited range of motion and subjective swelling of her left knee causing her to ultimately present here for continued evaluation. Patient has had fevers at home T-max unknown. There is associated nausea without vomiting. 02/06/2022 left knee x-ray: FINDINGS: LEFT KNEE: Three views of the left knee were obtained. There is no acute fracture or dislocation. Visu
--- NOTE | 2022-02-09 08:56 | PC.NURSE ---
Notified Sourav of [facility], in pharmacy. He made changes to vanc order per aug.
[2022-02-09 15:37] VITALS: BP 102/56; PULSE 64; RESP 16; TEMP 36.5; O2SAT 96
--- NOTE | 2022-02-09 19:05 | PC.NURSE ---
Addendum entered by Naresh Cornejo RN 02/09/22 19:39: Also, when speaking with ANITRA Venegas @ [facility] for report, this RN made her aware xarelto would be held this evening in case of possible surgery and they could determine if they wanted to continue blood thinner there, when pt arrived. Dr. Addison in aware and agreed to hold and also aware of creatinine as well. Addendum entered by Naresh Cornejo RN 02/09/22 19:07: Have called report. Spoke with Rubi @ [phone]. Original Note: Spoke with Chen Crockett APRN this am and he wasaware of creatinine. Have encouraged po intake. Pt verbalizes understanding. have called [facility] to [facility], ambulance called at [phone], [place] em[facility] should be here any time to transport pt.
[2022-02-09 20:00] VITALS: BP 96/57; PULSE 66; RESP 17; TEMP 36.4; O2SAT 97
--- NOTE | 2022-02-09 20:34 | PC.NURSE ---
PT LEFT FLOOR VIA STRETXHER WITH EMS AT 20:25
--- NOTE | 2022-02-10 00:23 | PC.NURSE ---
CULTURE REPORT FROM 01/16/22 FAXED TO [facility] #[phone]
== END 2022-02-09 20:25 | disposition short-term general hospital (02) ==
LOC: ER 17:32 → 2ND 17:55
PROVIDERS: Family Medicine; Admitting Provider Emergency Medicine; Emergency Provider Emergency Medicine; PCP Emergency Medicine; Visit Provider Emergency Medicine
DX: T81.49XA Infection following a procedure, other surgical site, initial encounter (principal); M25.562 Pain in left knee; I50.9 Heart failure, unspecified; I11.0 Hypertensive heart disease with heart failure; I42.9 Cardiomyopathy, unspecified; M17.10 Unilateral primary osteoarthritis, unspecified knee; Z79.899 Other long term (current) drug therapy; Z88.8 Allergy status to other drugs, medicaments and biological substances; Z95.810 Presence of automatic (implantable) cardiac defibrillator; Z20.822 Contact with and (suspected) exposure to COVID-19
CPT/HCPCS: G0378; 36415; 73562; 80048; 80053; 80202; 82550; 83605; 85025; 85651; 86140; 87040; 96365; 99285; C9803; J0878; J1335; J2405; U0003; U0005

== ENCOUNTER → 2022-02-26 12:34 | Outpatient (CLI) | payer MEDICARE, OTHER, SELFPAY ==
[2022-02-26 13:22] LABS: Basophils # 0.1 K/mm3 (0-0.2); Basophils % 0.7 % (0.1-2.0); Eosinophils # 1.9 K/mm3 (0.0-0.4); Eosinophils % 21.2 % (0.1-12.0); Hemoglobin 9.4 g/dL (12.2-16.2); Lymphocytes # 2.5 K/mm3 (0.7-4.5); Lymphocytes % 27.8 % (10-50); Mean Corpuscular HGB Conc 32.4 g/dL (31.8-35.4); Mean Corpuscular Hemoglobin 29.8 pg (27.0-31.2); Mean Platelet Volume 8.4 fl (7.4-10.4); Monocytes # 0.3 K/mm3 (0.1-1.0); Monocytes % 3.4 % (1.7-9.3); Neutrophils # 4.2 K/mm3 (1.8-7.8); Neutrophils % 46.8 % (37.0-80.0); Platelet Count 316 K/mm3 (142-424); Red Blood Count 3.15 M/mm3 (4.20-5.40); Red Cell Distribution Width 15.4 % (11.5-17.5); White Blood Count 8.9 K/mm3 (4.8-10.8)
[2022-02-26 13:39] LABS: Chloride 108 mmol/L (98-107); Potassium 4.4 mmoL/L (3.5-5.1); Sodium 136 mmol/L (136-145)
[2022-02-26 13:41] LABS: Blood Urea Nitrogen 12 mg/dl (7-17); Estimated Glomerular Filt Rate 66 ml/min (>60); GFR (African American) 80 ML/MIN (>60)
[2022-02-26 13:42] LABS: Alanine Aminotransferase 49 U/L (12-78); Albumin/Globulin Ratio 1.1 (1.1-1.8); Alkaline Phosphatase 459 U/L (38-126); Anion Gap 6.4 mEq/L (5-15); Aspartate Amino Transferase 47 U/L (14-36); Bilirubin,Total 0.2 mg/dl (0.2-1.3); Calcium 8.2 mg/dl (8.4-10.2); Carbon Dioxide 26 mmol/L (22.0-30.0); Creatine Kinase 197 U/L (30-135); Globulin 2.8 g/dL (1.3-3.2); Glucose 92 mg/dl (74-100); Total Protein,Serum 5.8 g/dl (6.3-8.2)
[2022-02-26 13:47] LABS: C-Reactive Protein 17.7 mg/L (0-4)
== END ==
PROVIDERS: Visit Provider Orthopaedic Surgery
DX: T84.50XA Infection and inflammatory reaction due to unspecified internal joint prosthesis, initial encounter (principal)
CPT/HCPCS: 80053; 82550; 85025; 86140

== ENCOUNTER → 2022-03-02 13:27 | Outpatient (CLI) | payer MEDICARE, OTHER, SELFPAY ==
[2022-03-02 14:59] LABS: Basophils # 0.1 K/mm3 (0-0.2); Basophils % 0.8 % (0.1-2.0); Eosinophils # 1.3 K/mm3 (0.0-0.4); Hematocrit 32.4 % (37.0-47.0); Hemoglobin 10.3 g/dL (12.2-16.2); Lymphocytes # 3.3 K/mm3 (0.7-4.5); Lymphocytes % 36.8 % (10-50); Mean Corpuscular HGB Conc 31.8 g/dL (31.8-35.4); Mean Corpuscular Hemoglobin 29.9 pg (27.0-31.2); Mean Platelet Volume 8.7 fl (7.4-10.4); Monocytes # 0.6 K/mm3 (0.1-1.0); Monocytes % 6.4 % (1.7-9.3); Neutrophils # 3.7 K/mm3 (1.8-7.8); Platelet Count 298 K/mm3 (142-424); Red Blood Count 3.45 M/mm3 (4.20-5.40); Red Cell Distribution Width 15.6 % (11.5-17.5); White Blood Count 8.9 K/mm3 (4.8-10.8)
[2022-03-02 15:02] LABS: Chloride 105 mmol/L (98-107)
[2022-03-02 15:03] LABS: Potassium 4.8 mmoL/L (3.5-5.1); Sodium 139 mmol/L (136-145)
[2022-03-02 15:05] LABS: Alanine Aminotransferase 31 U/L (12-78); Alkaline Phosphatase 365 U/L (38-126); Anion Gap 14.8 mEq/L (5-15); Aspartate Amino Transferase 31 U/L (14-36); Bilirubin,Total 0.5 mg/dl (0.2-1.3); Blood Urea Nitrogen 11 mg/dl (7-17); Carbon Dioxide 24 mmol/L (22.0-30.0); Creatine Kinase 36 U/L (30-135); Estimated Glomerular Filt Rate 59 ml/min (>60); GFR (African American) 71 ML/MIN (>60); Glucose 75 mg/dl (74-100)
[2022-03-02 15:06] LABS: Albumin Level 3.5 g/dl (3.5-5.0); Albumin/Globulin Ratio 1.2 (1.1-1.8); Total Protein,Serum 6.5 g/dl (6.3-8.2)
[2022-03-02 15:11] LABS: C-Reactive Protein 11.1 mg/L (0-4)
== END ==
PROVIDERS: PCP Orthopaedic Surgery; Visit Provider Orthopaedic Surgery
DX: M25.562 Pain in left knee (principal); T84.54XA Infection and inflammatory reaction due to internal left knee prosthesis, initial encounter
CPT/HCPCS: 80053; 82550; 85025; 86140

== ENCOUNTER → 2022-03-09 11:09 | Outpatient (CLI) | payer MEDICARE, OTHER, SELFPAY ==
[2022-03-09 11:58] LABS: Basophils # 0.1 K/mm3 (0-0.2); Basophils % 1.3 % (0.1-2.0); Eosinophils # 0.9 K/mm3 (0.0-0.4); Eosinophils % 10.6 % (0.1-12.0); Hematocrit 32.4 % (37.0-47.0); Hemoglobin 10.5 g/dL (12.2-16.2); Lymphocytes # 3.5 K/mm3 (0.7-4.5); Lymphocytes % 43.5 % (10-50); Mean Corpuscular HGB Conc 32.3 g/dL (31.8-35.4); Mean Corpuscular Hemoglobin 29.6 pg (27.0-31.2); Mean Corpuscular Volume 91.8 fl (81-99); Mean Platelet Volume 8.4 fl (7.4-10.4); Monocytes # 0.3 K/mm3 (0.1-1.0); Monocytes % 4.2 % (1.7-9.3); Neutrophils # 3.2 K/mm3 (1.8-7.8); Neutrophils % 40.4 % (37.0-80.0); Platelet Count 293 K/mm3 (142-424); Red Blood Count 3.53 M/mm3 (4.20-5.40); Red Cell Distribution Width 15.1 % (11.5-17.5)
[2022-03-09 12:02] LABS: Chloride 105 mmol/L (98-107); Potassium 4.6 mmoL/L (3.5-5.1); Sodium 138 mmol/L (136-145)
[2022-03-09 12:05] LABS: Alanine Aminotransferase 41 U/L (12-78); Albumin Level 3.7 g/dl (3.5-5.0); Albumin/Globulin Ratio 1.2 (1.1-1.8); Alkaline Phosphatase 249 U/L (38-126); Anion Gap 15.6 mEq/L (5-15); Aspartate Amino Transferase 65 U/L (14-36); Bilirubin,Total 0.2 mg/dl (0.2-1.3); Blood Urea Nitrogen 20 mg/dl (7-17); Calcium 9.3 mg/dl (8.4-10.2); Carbon Dioxide 22 mmol/L (22.0-30.0); Creatine Kinase 238 U/L (30-135); Estimated Glomerular Filt Rate 53 ml/min (>60); GFR (African American) 64 ML/MIN (>60); Glucose 100 mg/dl (74-100); Total Protein,Serum 6.7 g/dl (6.3-8.2)
[2022-03-09 12:11] LABS: C-Reactive Protein 4.6 mg/L (0-4)
== END ==
PROVIDERS: PCP Emergency Medicine; Visit Provider Orthopaedic Surgery
DX: T84.50XA Infection and inflammatory reaction due to unspecified internal joint prosthesis, initial encounter (principal)
CPT/HCPCS: 80053; 82550; 85025; 86140

== ENCOUNTER → 2022-03-12 12:53 | Outpatient (CLI) | payer MEDICARE, OTHER, SELFPAY ==
[2022-03-12 13:14] LABS: Blood Urea Nitrogen 30 mg/dl (7-17); Creatine Kinase 402 U/L (30-135); Estimated Glomerular Filt Rate 40 ml/min (>60); GFR (African American) 48 ML/MIN (>60)
== END ==
PROVIDERS: PCP Nurse Practitioner; Visit Provider Nurse Practitioner
DX: T84.54XA Infection and inflammatory reaction due to internal left knee prosthesis, initial encounter (principal); M00.862 Arthritis due to other bacteria, left knee; A41.02 Sepsis due to Methicillin resistant Staphylococcus aureus; R65.20 Severe sepsis without septic shock
CPT/HCPCS: 82550; 82565; 84520

== ENCOUNTER → 2022-08-11 13:55 | Outpatient (CLI) | payer MEDICARE, OTHER, SELFPAY | PROVIDERS: PCP Emergency Medicine; Visit Provider Orthopaedic Surgery | DX: Z01.812 Encounter for preprocedural laboratory examination (principal); Z11.52 Encounter for screening for COVID-19 | CPT/HCPCS: C9803; U0003; U0005 ==

== ENCOUNTER 2022-09-29 18:33 | Emergency (ER) | payer MEDICARE, OTHER, SELFPAY ==
[2022-09-29 18:53] VITALS: BP 110/55; PULSE 56; RESP 16; TEMP 36.4; O2SAT 98; BMI 34.2
--- NOTE | 2022-09-29 18:58 | CT_ITS ---
PROCEDURE INFORMATION: Exam: CT Abdomen And Pelvis With Contrast Exam date and time: 09/29/2022 7:43 PM Age: 52 years old Clinical indication: Abdominal pain; Additional info: Flank pain TECHNIQUE: Imaging protocol: Computed tomography of the abdomen and pelvis with contrast. Radiation optimization: All CT scans at this facility use at least one of these dose optimization techniques: automated exposure control; mA and/or kV adjustment per patient size (includes targeted exams where dose is matched to clinical indication); or iterative reconstruction. Contrast material: ISOVUE; Contrast volume: 75 ml; Contrast route: IV; REPORTING DATA: Count of CT and Cardiac NM exams in prior 12 months: This patient has received [address] and 0 known cardiac nuclear medicine studies in the 12 months prior to the current study. COMPARISON: CT ABDOMEN PELVIS W CON 05/07/2021 6:07 PM FINDINGS: Liver: Normal. No mass. Gallbladder and bile ducts: Post cholecystectomy change. Pancreas: Normal enhancement. No ductal dilation. Spleen: No splenomegaly. Adrenal glands: No mass. Kidneys and ureters: Punctate nonobstructing right renal calcification. No hydronephrosis. Stomach and bowel: No obstruction. No mucosal thickening. Appendix: No evidence of appendicitis. Intraperitoneal space: No significant fluid collection. No free air. Vasculature: No abdominal aortic aneurysm. Lymph nodes: No enlarged lymph nodes. Urinary bladder: Bladder wall appears thickened measuring 7 mm. Urinary bladder is under distended. Reproductive: No acute abnormality. Bones/joints: Postprocedural changes to the spine. No acute fracture. Soft tissues: No soft tissue swelling. IMPRESSION: 1. Punctate nonobstructing right renal calcification without hydronephrosis. 2. Bladder wall appears thickened which may in part be secondary to underdistention however correlation with UA is recommended.
--- NOTE | 2022-09-29 18:58 | [facility].EDGENADL ---
Discharge Plan Disposition Patient Disposition: Still a Patient Prescriptions Prescriptions: No Action methocarbamol 500 mg tablet 500 mg PO QID naloxone 4 mg/actuation spray,non-aerosol intranasal docusate sodium 250 mg capsule PO sulfamethoxazole-trimethoprim 800-160 mg tablet 1 tab PO BID clonazepam 1 mg tablet 1 mg PO TID Qty: 90 1RF gabapentin 600 mg tablet 600 mg PO TID Qty: 90 1RF oxycodone-acetaminophen [Percocet] 7.5-325 mg tablet 1 tab PO QID Qty: 120 0RF torsemide 20 mg tablet 20 mg PO DAILY Qty: 30 2RF sacubitril-valsartan 49-51 mg tablet 1 tab PO BID Qty: 60 3RF levothyroxine 200 mcg tablet See Rx Instructions .ROUTE .COMPLEX Qty: 90 0RF Dose Instruction: TAKE ONE TABLET BY MOUTH EVERY DAY Rx Instructions: TAKE ONE TABLET BY MOUTH EVERY DAY oxybutynin chloride 5 mg tablet See Rx Instructions .ROUTE .COMPLEX Qty: 180 0RF Dose Instruction: TAKE ONE TABLET BY MOUTH TWICE DAILY FOR overactive bladder Rx Instructions: TAKE ONE TABLET BY MOUTH TWICE DAILY FOR overactive bladder levocetirizine 5 mg tablet See Rx Instructions .ROUTE .COMPLEX Qty: 90 0RF Dose Instruction: TAKE ONE TABLET BY MOUTH EVERY DAY Rx Instructions: TAKE ONE TABLET BY MOUTH EVERY DAY ondansetron 4 mg tablet,disintegrating See Rx Instructions .ROUTE .COMPLEX Qty: 30 0RF Dose Instruction: DISSOLVE ONE TABLET in MOUTH THREE TIMES DAILY NEEDED FOR NAUSEA AND VOMITING Rx Instructions: DISSOLVE ONE TABLET in MOUTH THREE TIMES DAILY NEEDED FOR NAUSEA AND VOMITING albuterol sulfate 90 mcg/actuation HFA aerosol inhaler See Rx Instructions .ROUTE .COMPLEX Qty: 8.5 1RF Dose Instruction: INHALE TWO PUFFS BY MOUTH EVERY 4 TO 6 HOURS NEEDED FOR SHORTNESS OF BREATH OR wheezing Rx Instructions: INHALE TWO PUFFS BY MOUTH EVERY 4 TO 6 HOURS NEEDED FOR SHORTNESS OF BREATH OR wheezing atorvastatin 40 MG tablet 40 mg PO HS spironolactone 25 MG tablet 25 mg PO DAILY famotidine 20 MG tablet 20 mg PO BID nitroglycerin 0.4 MG tablet, sublingual See Rx Instructions .Route .COMPLEX Rx Instructions: PLACE ONE TABLET UNDER THE TONGUE EVERY 5 MINUTES NEEDED FOR CHEST PAIN. DO NOT EXCEED 3 DOSES PER EPISODE fluticasone propionate 16 GM spray,suspension 1 spray NS BID Rx Instructions: administer into each nostril mesalamine 800 MG tablet,delayed release (DR/EC) 1,600 mg PO TID Rx Instructions: MUST TAKE ON A EMPTY STOMACH. NO FOOD ONE HOUR AFTER OR 2-3 HOURS BEFORE DOSE rivaroxaban 20 MG tablet 20 mg PO QPMWITHMEAL Rx Instructions: must administer with evening meal Referrals Follow up/Referrals: Khai Stoddard MD [Primary Care Provider] - See instructions Clinical Impressions Clinical Impression: Abdominal pain Discharge ED Provider: Gurjit Garcia General Adult HPI General Chief complaint: PAIN Stated complaint: back Pain Time Seen by Provider: 09/29/22 19:00 Mode of Arrival: Wheelchair Source of Information: Patient Limitations: No Limitations Description of Symptoms (Recalled from ER Triage Doc. by RN): pt comes in with c/o lower back pain, abdominal pain ongoing for 3 weeks. pt has been on abx recently for recent left knee surgery. History of Present Illness HPI narrative: 52-year-old female with abdominal pain and lower back pain this is chronic in nature however got worse overnight. She has chronic nausea vomiting diarrhea as well and no fevers or chills. Has abdominal pain as well that is dull nonradiating mid abdomen. Related Data Home Medications Medication Instructions Recorded Confirmed atorvastatin 40 mg tablet 40 mg PO HS Cholesterol 12/29/21 09/04/22 famotidine 20 mg tablet 20 mg PO BID acid reflux 12/29/21 09/04/22 fluticasone propionate 50 1 spray intranasal BID allergies 12/29/21 09/04/22
[2022-09-29 19:24] LABS: Basophils # 0.1 K/mm3 (0-0.2); Basophils % 0.9 % (0.1-2.0); Eosinophils # 0.5 K/mm3 (0.0-0.4); Eosinophils % 5.1 % (0.1-12.0); Hematocrit 38.4 % (37.0-47.0); Hemoglobin 12.5 g/dL (12.2-16.2); Lymphocytes # 5.1 K/mm3 (0.7-4.5); Lymphocytes % 52.4 % (10-50); Mean Corpuscular HGB Conc 32.6 g/dL (31.8-35.4); Mean Corpuscular Hemoglobin 30.5 pg (27.0-31.2); Mean Corpuscular Volume 93.4 fl (81-99); Mean Platelet Volume 8.8 fl (7.4-10.4); Monocytes # 0.4 K/mm3 (0.1-1.0); Monocytes % 3.9 % (1.7-9.3); Neutrophils # 3.7 K/mm3 (1.8-7.8); Neutrophils % 37.7 % (37.0-80.0); Platelet Count 335 K/mm3 (142-424); Red Blood Count 4.11 M/mm3 (4.20-5.40); Red Cell Distribution Width 13.5 % (11.5-17.5); White Blood Count 9.7 K/mm3 (4.8-10.8)
[2022-09-29 19:27] LABS: Chloride 102 mmol/L (98-107); Sodium 139 mmol/L (136-145)
[2022-09-29 19:29] LABS: Blood Urea Nitrogen 38 mg/dl (7-17); Creatinine Clearance Estimated 78 mL/min (50-200); Estimated Glomerular Filt Rate 37 ml/min (>60); GFR (African American) 44 ML/MIN (>60); MANUAL DIFFERENTIAL MANUAL DIFFERENTIAL (MANUAL DIFF)
[2022-09-29 19:30] VITALS: PULSE 67; O2SAT 97
[2022-09-29 19:30] LABS: Alanine Aminotransferase 19 U/L (12-78); Albumin Level 4.4 g/dl (3.5-5.0); Albumin/Globulin Ratio 1.4 (1.1-1.8); Alkaline Phosphatase 127 U/L (38-126); Aspartate Amino Transferase 26 U/L (14-36); Bilirubin,Total 0.4 mg/dl (0.2-1.3); Calcium 9.9 mg/dl (8.4-10.2); Carbon Dioxide 27 mmol/L (22.0-30.0); Globulin 3.1 g/dL (1.3-3.2); Glucose 70 mg/dl (74-100); Lipase 120 U/L (23-300); Total Protein,Serum 7.5 g/dl (6.3-8.2)
[2022-09-29 19:51] LABS: HCG Qualitative, Serum Negative (Negative)
[2022-09-29 20:23] LABS: Eosinophils % 2 % (0-3); Lymphocytes % 54 % (10-50); Monocytes % 4 % (2-9); Neutrophils % 40 % (42-76); Platelet Estimate Normal; RBC Morphology Normal; Total Cells Counted 100
[2022-09-29 22:42] VITALS: BP 118/87; PULSE 61; RESP 16; TEMP 36.4; O2SAT 98
--- NOTE | 2022-09-29 22:45 | [facility].EDGENADL ---
Discharge Plan Disposition Patient Disposition: Home, Self-Care Prescriptions Prescriptions: No Action methocarbamol 500 mg tablet 500 mg PO QID naloxone 4 mg/actuation spray,non-aerosol intranasal docusate sodium 250 mg capsule PO sulfamethoxazole-trimethoprim 800-160 mg tablet 1 tab PO BID clonazepam 1 mg tablet 1 mg PO TID Qty: 90 1RF gabapentin 600 mg tablet 600 mg PO TID Qty: 90 1RF oxycodone-acetaminophen [Percocet] 7.5-325 mg tablet 1 tab PO QID Qty: 120 0RF torsemide 20 mg tablet 20 mg PO DAILY Qty: 30 2RF sacubitril-valsartan 49-51 mg tablet 1 tab PO BID Qty: 60 3RF levothyroxine 200 mcg tablet See Rx Instructions .ROUTE .COMPLEX Qty: 90 0RF Dose Instruction: TAKE ONE TABLET BY MOUTH EVERY DAY Rx Instructions: TAKE ONE TABLET BY MOUTH EVERY DAY oxybutynin chloride 5 mg tablet See Rx Instructions .ROUTE .COMPLEX Qty: 180 0RF Dose Instruction: TAKE ONE TABLET BY MOUTH TWICE DAILY FOR overactive bladder Rx Instructions: TAKE ONE TABLET BY MOUTH TWICE DAILY FOR overactive bladder levocetirizine 5 mg tablet See Rx Instructions .ROUTE .COMPLEX Qty: 90 0RF Dose Instruction: TAKE ONE TABLET BY MOUTH EVERY DAY Rx Instructions: TAKE ONE TABLET BY MOUTH EVERY DAY ondansetron 4 mg tablet,disintegrating See Rx Instructions .ROUTE .COMPLEX Qty: 30 0RF Dose Instruction: DISSOLVE ONE TABLET in MOUTH THREE TIMES DAILY NEEDED FOR NAUSEA AND VOMITING Rx Instructions: DISSOLVE ONE TABLET in MOUTH THREE TIMES DAILY NEEDED FOR NAUSEA AND VOMITING albuterol sulfate 90 mcg/actuation HFA aerosol inhaler See Rx Instructions .ROUTE .COMPLEX Qty: 8.5 1RF Dose Instruction: INHALE TWO PUFFS BY MOUTH EVERY 4 TO 6 HOURS NEEDED FOR SHORTNESS OF BREATH OR wheezing Rx Instructions: INHALE TWO PUFFS BY MOUTH EVERY 4 TO 6 HOURS NEEDED FOR SHORTNESS OF BREATH OR wheezing atorvastatin 40 MG tablet 40 mg PO HS spironolactone 25 MG tablet 25 mg PO DAILY famotidine 20 MG tablet 20 mg PO BID nitroglycerin 0.4 MG tablet, sublingual See Rx Instructions .Route .COMPLEX Rx Instructions: PLACE ONE TABLET UNDER THE TONGUE EVERY 5 MINUTES NEEDED FOR CHEST PAIN. DO NOT EXCEED 3 DOSES PER EPISODE fluticasone propionate 16 GM spray,suspension 1 spray NS BID Rx Instructions: administer into each nostril mesalamine 800 MG tablet,delayed release (DR/EC) 1,600 mg PO TID Rx Instructions: MUST TAKE ON A EMPTY STOMACH. NO FOOD ONE HOUR AFTER OR 2-3 HOURS BEFORE DOSE rivaroxaban 20 MG tablet 20 mg PO QPMWITHMEAL Rx Instructions: must administer with evening meal Referrals Follow up/Referrals: Khai Stoddard MD [Primary Care Provider] - See instructions Clinical Impressions Clinical Impression: Abdominal pain, Total knee replacement status, Back pain Instructions Patient Instructions: DI for Acute Pain -- Adult Discharge ED Provider: Gurjit Garcia General Adult HPI General Chief complaint: PAIN Stated complaint: back Pain Time Seen by Provider: 09/29/22 19:00 Mode of Arrival: Wheelchair Source of Information: Patient and Medical Record Limitations: No Limitations Description of Symptoms (Recalled from ER Triage Doc. by RN): pt comes in with c/o lower back pain, abdominal pain ongoing for 3 weeks. pt has been on abx recently for recent left knee surgery. History of Present Illness HPI narrative: lt sided back pain w/o fever or rash and no trauma - has recent lt knee surg and saw ortho today Onset (ago): day(s) Location: back Severity: moderate Consistency: intermittent Associated symptoms: denies other symptoms Related Data Home Medications Medication Instructions Recorded Confirmed atorvastatin 40 mg tablet 40 mg PO HS Cholesterol 12/29/21 09/04/22 famotidine 20 mg tablet 20 mg PO BID acid reflux 12/19
== END 2022-09-29 22:55 | disposition home or self-care (01) ==
PROVIDERS: Emergency Provider Emergency Medicine; PCP Emergency Medicine
DX: R10.9 Unspecified abdominal pain (principal); M54.50 Low back pain, unspecified; R11.2 Nausea with vomiting, unspecified; F17.210 Nicotine dependence, cigarettes, uncomplicated
CPT/HCPCS: 74177; 80053; 83690; 84703; 85007; 85025; 96360; 96374; 96375; 99285; J2405; Q9967

== ENCOUNTER → 2022-10-30 23:22 | Outpatient (CLI) | payer MEDICARE, OTHER, SELFPAY ==
[2022-10-30 19:19] LABS: Amphetamine/Metha Screen,Urine Negative ng/ml (<1000); Barbiturates Screen,Urine Negative ng/ml (<200)
[2022-10-30 19:20] LABS: Benzodiazepines Screen,Urine Negative ng/ml (<200)
[2022-10-30 19:21] LABS: Cannabinoid Screen,Urine Positive ng/ml (<50); Cocaine Screen,Urine Negative ng/ml (<300)
[2022-10-30 19:22] LABS: Methadone Screen,Urine Negative ng/ml (<300); Opiate Screen,Urine Negative ng/ml (<300)
[2022-10-30 19:24] LABS: Phencyclidine Screen,Urine Negative ng/ml (<25)
== END ==
PROVIDERS: PCP Emergency Medicine; Visit Provider Emergency Medicine
DX: Z79.899 Other long term (current) drug therapy (principal)
CPT/HCPCS: 80305